=== PATIENT | female | born 1935 | race Caucasian/White ===

== ENCOUNTER 2020-10-12 21:44 | Inpatient (IN) | payer MEDICARE, SELFPAY ==
[2020-10-12 21:45] VITALS: BP 159/91; PULSE 110; RESP 16; TEMP 36.1; O2SAT 95; BMI 24.1
--- NOTE | 2020-10-12 23:37 | RAD_ITS ---
STUDY: X-RAY - ACUTE ABDOMINAL SERIES REASON FOR EXAM: Female, 85 years old. coughing, spitting up phlegm TECHNIQUE: Single view of the chest. Supine, and erect view(s) of the abdomen were obtained. COMPARISON: None. FINDINGS: There is hyperinflation of the lungs consistent with chronic obstructive lung disease (COPD). Lungs are clear Normal size heart. Normal mediastinum and vito. Normal visualized pulmonary arteries. Normal visualized aortic arch and descending thoracic aorta. There is a non-specific bowel gas pattern. The soft tissue structures of the abdomen and pelvis are unremarkable. Normal visualized osseous structures. RAD/Acute Abdomen Inc Chest IMPRESSION: Normal x-ray examination of the chest, abdomen, and pelvis. Electronically Signed: Abdoul Cancino DO at 0:19 EDT Tel , Service support ,
[2020-10-13] VITALS (12 sets, daily range): BP systolic 91–159; BP diastolic 49–91; PULSE 83–110; RESP 16–20; TEMP 36.1–37; O2SAT 92–99; BMI 23.8
--- NOTE | 2020-10-13 00:04 | EX.ED.DYSGE1 ---
HPI History of Present Illness Chief Complaint: Nausea/Vomiting Informant: patient Onset/Context/Timing Onset: Today and Hours (1800) Context: Onset with activity (dinner) Timing: Continuous Current Severity: Gone Worsened by: eating, allergies, phlegm Relieved by: nothing Associated Symptoms Associated Symptoms: none Narrative Narrative: Patient was eating soup and cake. She started coughing secondary to phlegm. She could not get anything down including solids or liquids. She feels like that has resolved, but she has not tried to take anything by mouth for a few hours now. She does complain of vomiting as well, but says that she is vomiting up phlegm. She has a chronic cough and allergies. Denies any history of GERD, strictures, achalasia, or prior EGD. Denies any history of bowel obstructions. Prior similar symptoms: No Recent Illness/Hospitalization: No PFSH PFSH Home Medications mmdldiju-qju-LX-lycopen-lutein [Centrum Silver Tablet] 1 ea PO DAILY 05/02/13 [History Last Taken Unknown] [id number]-amfjwhuib-EO 2 drp EACH EAR QHS 10/12/20 [History Last Taken Unknown] Allergy/AdvReac Type Severity Reaction Status Date / Time No Known Allergies Allergy Verified 05/02/13 17:25 Social History Smoking Status: Never smoker ROS ROS ED Constitutional Constitutional ED: Denies chills or fever(s) Eyes Eyes: Denies change in vision ENT ENT ED: Denies ear pain Cardiovascular Cardiovascular: Denies chest pain or palpitations Respiratory/Chest Respiratory/Chest: Reports cough; Denies dyspnea or sputum Gastrointestinal Gastrointestinal: Reports nausea and vomiting; Denies abdominal pain, constipation or diarrhea Genitourinary Genitourinary ED: Denies dysuria Musculoskeletal Musculoskeletal: Denies myalgias Integumentary Denies rash Neurologic Neurologic: Denies headache(s) Psychiatric Psychiatric: Denies depression Endocrine Endocrinology: Denies polyuria Allergic/Immunologic Allergic/Immunologic ED: Denies urticaria EXAM Physical Exam Const Vital Signs: 10/12/20 21:45 Temperature 97 F L Temperature Source Temporal Pulse Rate 110 H Respiratory Rate 16 Blood Pressure 159/91 H Blood Pressure Mean 113 Pulse Ox 95 Oxygen Delivery Method Room Air Positive well nourished and well developed General Appearance ED: well developed HEENT Negative for trauma or tenderness Eyes EOMs intact bilaterally Neck supple Chest Wall inspection of chest normal Resp normal respiratory effort and clear to auscultation bilaterally Cardio regular rate and regular rhythm GI normal to inspection, nondistended, normoactive bowel sounds Extremity normal to inspection Neuro oriented x3 Sensorium / Orientation: alert Psych mental status grossly normal Skin no rashes or lesions noted and no wounds MDM MDM MDM Narrative Medical decision making narrative: It initially sounded like the patient was coughing while she was trying to swallow. I checked x-rays which were unremarkable, reviewed by myself and the radiologist. We then attempted a p.o. challenge. The patient drank some benny nayana and then vomited it back up. This was witnessed by nursing. She is able to swallow her saliva, and so I do not believe she has an esophageal impaction. I added on nausea medicine, labs, and a CT. She had a white count of 14 but otherwise her labs were fairly unremarkable. CT was unremarkable. On further evaluation, the patient is able to swallow saliva, but still cannot tolerate anything by mouth. Since she cannot eat or drink, I will contact the hospitalist for admission. Lab Data Attestation: I reviewed the patient's lab results. Labs: Laboratory Results - last 24 hr 10/12/20 10/12/20 22:58 22:58 WBC 14.0 H RBC 5.33 Hgb 14.8 Hct 45.8 MCV 85.9 MCH 27.8 MCHC 32.3 RDW Std Deviation 46.1 H RDW Coeff of Celi 14.6 Plt Count 369 MPV 10.9 Immature Gran % (Auto) 0.500 Neut % (Auto) 74.6 H Lymph % (Auto) 19.6 [place] % (Auto) 4.6 Eos % (Auto) 0.3 Baso % (Auto) 0.4 Absolute Neuts (auto) 10.5 H Absolute Lymphs (auto) 2.74 Nucleated RBC % 0 Sodium 139 Potassium 4.1 Chloride 106 Carbon Dioxide 21.0 Anion Gap 12 BUN 16 Creatinine 0.82 Estim Creat Clear Calc 37.16 Est GFR (MDRD) Af Amer 85 Est GFR (MDRD) Non-Af 70 BUN/Creatinine Ratio 19.5 Glucose 170 H Calcium 9.1 Total Bilirubin 0.60 AST 22 ALT 24 Alkaline Phosphatase 94 Total Protein 7.9 Albumin 3.5 Globulin 4.4 H Albumin/Globulin Ratio 0.8 L Lipase 94 Radiography Chest X-Ray - ED: Read by ED Physician and Normal Diagnostic Testing: Radiology Impression Acute Abdomen Series 10/12/20 23:37 IMPRESSION: Normal x-ray examination of the chest, abdomen, and pelvis. Electronically Signed: Abdoul Cancino DO at 0:19 EDT Tel , Service support , Abdomen/Pelvis CT 10/13/20 00:50 IMPRESSION: 1. No acute findings 2. Abnormal appearance of the uterus with what appears to be an enhancing fibroid as well as cystic dilation of the endometrium and lower uterine segment. Further evaluation with pelvic ultrasound would be helpful to further evaluate. Electronically Signed: Abdoul Cancino DO at 1:32 EDT Tel , Service support , Discharge Plan Triage Chief Complaint: Nausea/Vomiting ED Provider: Brad Saab Dx/Rx/DC Orders Clinical Impression: Intractable vomiting with nausea Prescriptions: No Action Centrum Silver 1 EACH tablet 1 ea PO DAILY RF: 0 bxgjclfm-vuypgdnaz-PA 3.5-10,000-1 mg/mL-unit/mL-% solution 2 drp EACH EAR QHS RF: 0 Primary Care Provider: Care Physician,No Primary Referrals: Care Physician,No Primary [Primary Care Provider] -
[2020-10-13 00:17] LABS: Absolute Lymphocyte Count 2.74 X10^3/uL (0.83-4.51); Absolute Neutrophil Count 10.5 X10^3/uL (2.0-7.7); Basophil# 0.05 X10^3/uL; Basophil% 0.4 % (0-1); Eosinophil# 0.04 X10^3/uL; Eosinophils% 0.3 % (0-5); Hematocrit 45.8 % (37-47); Hemoglobin 14.8 g/dL (12.0-15.0); Lymphocyte # 2.74 X10^3/ul (0.83-4.51); Lymphocyte % 19.6 % (19-41); Mean Corp Hgb Conc 32.3 g/dL (32-36); Mean Corpuscular Hgb 27.8 pg (27.0-32.0); Mean Corpuscular Volume 85.9 fL (81-99); Mean Platelet Vol. 10.9 fl (6.2-12.0); Monocyte# 0.64 X10^3/uL; Monocyte% 4.6 % (0-10); NRBC Flagged by Analyzer 0 % (0-5); Neutrophil # 10.46 X10^3/uL (2.7-7.7); Neutrophil % 74.6 % (47-70); Platelet Count 369 K/mm3 (150-450); RBC Distribution Width CV 14.6 % (11.6-14.6); RBC Distribution Width SD 46.1 fl (35.1-43.9); Red Blood Count 5.33 M/mm3 (4.2-5.4)
[2020-10-13] MEDS: Ondansetron 4 MG/2 ML Vial IV ×2 (00:24→08:37)
[2020-10-13 00:26] LABS: ALB/GLOB Ratio 0.8 RATIO (0.9-2.4); AST(SGOT) 22 U/L (15-37); Alanine Aminotransfer ALT/SGPT 24 U/L (13-56); Albumin, Serum 3.5 g/dL (3.2-5.0); Alkaline Phosphatase 94 U/L (45-117); Anion Gap 12 (5-15); BUN 16 mg/dL (7-18); BUN/Creat Ratio 19.5 RATIO (10-20); Calcium,Total 9.1 mg/dL (8.5-10.1); Chloride 106 mmol/L (98-107); Creatinine, Serum 0.82 mg/dL (0.55-1.02); EST Glomerular Filtration Rate 70 mL/min (>60); Est Glom Filt Rate - Afr Amer 85 mL/min (>60); Estimated Creatinine Clearance 37.16 ml/min; Globulin 4.4 g/dL (2.2-4.2); Glucose 170 mg/dL (74-106); Lipase 94 U/L (73-393); Potassium 4.1 mmol/L (3.5-5.1); Protein, Total 7.9 g/dL (6.4-8.2); Sodium Level 139 mmol/L (136-145)
--- NOTE | 2020-10-13 00:50 | CT_ITS ---
STUDY: CT ABDOMEN AND PELVIS WITH CONTRAST REASON FOR EXAM: Female, 85 years old. vomiting, leukocytosis RADIATION DOSAGE (If Supplied By Facility): CTDIvol = ( 18.53 ) mGy, DLP = ( 494.15 ) mGycm TECHNIQUE: Transaxial images were obtained from the dome of the diaphragm to the symphysis pubis without oral contrast. IV 75mL Isovue-370 was administered. Sagittal and coronal images were reconstructed. Individualized dose optimization techniques were used for this CT. COMPARISON: None. FINDINGS: The visualized lung bases are unremarkable. The visualized portions of the heart are within normal limits. Normal liver. Normal gallbladder and extrahepatic biliary system. Normal spleen. Normal pancreas. Normal bilateral adrenal glands. Normal right kidney. Normal left kidney. There is a small hiatal hernia. Normal small intestine. There are multiple colonic diverticula consistent with diverticulosis. The appendix is visualized and appears normal. There is diffuse atherosclerotic calcification of the abdominal aorta, without a demonstrated aneurysm. Normal inferior vena cava. Normal retroperitoneum. Normal urinary bladder. Abnormal appearance of uterus with what appears to be heterogeneously enhancing fibroid near the uterine fundus however, prominent cystic formations in the uterine body and lower uterine segment. Normal abdominal wall. Normal osseous structures. CT/Abdomen/Pelvis W IV Cont ONLY IMPRESSION: 1. No acute findings 2. Abnormal appearance of the uterus with what appears to be an enhancing fibroid as well as cystic dilation of the endometrium and lower uterine segment. Further evaluation with pelvic ultrasound would be helpful to further evaluate. Electronically Signed: Abdoul Cancino DO at 1:32 EDT Tel , Service support ,
--- NOTE | 2020-10-13 02:23 | HP.PCM.HOS_ITS ---
HPI - General General Date of Admission: 10/13/20 Date of Service: 10/13/20 Chief Complaint: vomiting HPI Narrative JORDY DALTON, is a 85 F who presents with vomiting. Patient was eating some soup and only had a couple bites and then vomited. Was unable to keep anything down and so presented to the emergency room. She underwent work-up in the emergency room that was significant only for white count of 14 and a glucose of 170. The tried fluid challenge twice and patient immediately vomited up the liquid. Patient has had issues with swallowing before with spitting up but this was much more pronounced. Patient does note issues intermittently with mucus. She denies any history of GERD. [facility] Medical History (Updated 10/13/20 @ 02:[address] Walter Yarbrough DO) Presbycusis Home Medications rhonkkqh-tbb-BS-lycopen-lutein [Centrum Silver Tablet] 1 ea PO DAILY 05/02/13 [History Last Taken Unknown] ycluzpzg-knregcpds-QW 2 drp EACH EAR QHS 10/12/20 [History Last Taken Unknown] Allergy/AdvReac Type Severity Reaction Status Date / Time No Known Allergies Allergy Verified 05/02/13 17:25 Family History (Updated 10/13/20 @ 02:[address] Walter Yarbrough DO) Other GERD (gastroesophageal reflux disease) Social History Smoking Status: Never smoker ROS ROS Narrative Denies any exposure to anyone with COVID-19. Chronic dry eyes and dry mouth. All review of systems were negative except as mentioned above in the history of present illness and the other review of systems. 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 ; Denies dysphagia Cardiovascular Cardiovascular: Reports other Details: Baseline chronic chest pain. Respiratory/Chest Respiratory/Chest: Reports cough and excessive phlegm production Gastrointestinal Gastrointestinal: Reports abdominal pain, vomiting and other Details: Abdominal pain from retching Vital Signs Vital Signs Vital Signs: 10/12/20 21:45 Temperature 36.1 C L Temperature Source Temporal Pulse Rate 110 H Respiratory Rate 16 Blood Pressure 159/91 H Blood Pressure Mean 113 Pulse Ox 95 Oxygen Delivery Method Room Air Weight Weight: 58.06 kg Body Mass Index (BMI) 24.1 Physical Exam Narrative Awake and alert. Afebrile. Const alert and no apparent distress General Appearance: cooperative HEENT normocephalic and head/scalp atraumatic HEENT Narrative: Patient has filled cavities in her posterior molars. Slightly dry mucous membrane Eyes Eyes Narrative: No scleral icterus Neck no lymphadenopathy Resp normal respiratory effort, no use of accessory muscles and clear to auscultation bilaterally Cardio regular rate, regular rhythm, S1 normal heart sound and S2 normal heart sound GI normal to inspection, nondistended, normoactive bowel sounds and non-distended Extremity normal to inspection, full ROM and no clubbing, cyanosis or edema Skin Skin Narrative: Patient has some small patch of dry skin underneath her left eye. Neuro Sensorium / Orientation: awake and alert Psych affect normal Results Lab / Micro Data Attestation: I reviewed the patient's lab results. Result Diagrams: 10/12/20 22:58 10/12/20 22:58 Labs: Laboratory Results - last 24 hr 10/12/20 10/12/20 22:58 22:58 WBC 14.0 H RBC 5.33 Hgb 14.8 Hct 45.8 MCV 85.9 MCH 27.8 MCHC 32.3 RDW Std Deviation 46.1 H RDW Coeff of Celi 14.6 Plt Count 369 MPV 10.9 Immature Gran % (Auto) 0.500 Neut % (Auto) 74.6 H Lymph % (Auto) 19.6 [place] % (Auto) 4.6 Eos % (Auto) 0.3 Baso % (Auto) 0.4 Absolute Neuts (auto) 10.5 H Absolute Lymphs (auto) 2.74 Nucleated RBC % 0 Sodium 139 Potassium 4.1 Chloride 106 Carbon Dioxide 21.0 Anion Gap 12 BUN 16 Creatinine 0.82 Estim Creat Clear Calc 37.16 Est GFR (MDRD) Af Amer 85 Est GFR (MDRD) Non-Af 70 BUN/Creatinine Ratio 19.5 Glucose 170 H Calcium 9.1 Total Bilirubin 0.60 AST 22 ALT 24 Alkaline Phosphatase 94 Total Protein 7.9 Albumin 3.5 Globulin 4.4 H Albumin/Globulin Ratio 0.8 L Lipase 94 Radiology Impression Acute Abdomen Series 10/12/20 23:37 IMPRESSION: Normal x-ray examination of the chest, abdomen, and pelvis. Electronically Signed: Abdoul Cancino DO at 0:19 EDT Tel , Service support , Abdomen/Pelvis CT 10/13/20 00:50 IMPRESSION: 1. No acute findings 2. Abnormal appearance of the uterus with what appears to be an enhancing fibroid as well as cystic dilation of the endometrium and lower uterine segment. Further evaluation with pelvic ultrasound would be helpful to further evaluate. Electronically Signed: Abdoul Cancino DO at 1:32 EDT Tel , Service support , Assessment & Plan Assessment/Plan (1) Intractable vomiting with nausea: PLAN: 1. Intractable vomiting * It sounds as though patient has had some issues in regards to swallowing in the past and would question whether or not this is actual vomiting or if there is thing involving her pharynx or esophagus that may be contributing to this current episode. * Plan: N.p.o. for now, speech therapy evaluate and treat, barium esophagram. Depending on results, may need general surgery evaluation for possible endoscopy with an EGD. Patient does complain of some chest pain but denies any overt reflux. I will give her a one-time dose of IV pantoprazole. IV fluids. * Patient does not have classic findings for scleroderma but I am concerned that patient may have a component of Sjogren's. Patient is already on eyedrops and does complain of dry mouth and does have numerous cavities in her teeth. Granted some of the cavities may be due to just her age and not ideal dental care over time. Patient has lost teeth due to falling several years ago that was her front teeth, however. 2. VTE prophylaxis: Not indicated given observation status 3. Advanced care planning: Discussed with the patient. Patient is unsure which she would want done in the event of cardiopulmonary arrest. Told her that the likelihood of that occurring during this hospitalization is extremely low but would have her at full CODE STATUS. But I did encourage that she and her discuss further at a later point. 4. Health maintenance: Discussed with the patient. Patient has been vaccinated against COVID-19 and received her last shot back in July. Charges/Coding Visit Charges OBSV E&M: 39323 Initial observation care L2
[2020-10-13] MEDS: 0.9% Normal Saline 1,000 ML 150 ML IV (03:01)
[2020-10-13 06:14] LABS: Absolute Lymphocyte Count 2.41 X10^3/uL (0.83-4.51); Absolute Neutrophil Count 14.8 X10^3/uL (2.0-7.7); Basophil# 0.04 X10^3/uL; Basophil% 0.2 % (0-1); Hemoglobin 13.6 g/dL (12.0-15.0); Lymphocyte # 2.41 X10^3/ul (0.83-4.51); Lymphocyte % 13.4 % (19-41); Mean Corp Hgb Conc 32.4 g/dL (32-36); Mean Corpuscular Volume 86.4 fL (81-99); Mean Platelet Vol. 9.8 fl (6.2-12.0); Monocyte# 0.73 X10^3/uL; Monocyte% 4.1 % (0-10); NRBC Flagged by Analyzer 0 % (0-5); Neutrophil # 14.76 X10^3/uL (2.7-7.7); Neutrophil % 81.9 % (47-70); Platelet Count 319 K/mm3 (150-450); RBC Distribution Width CV 14.6 % (11.6-14.6); RBC Distribution Width SD 46.1 fl (35.1-43.9); Red Blood Count 4.86 M/mm3 (4.2-5.4)
[2020-10-13] MEDS: 0.9% Saline Lock 10 ML Syringe IV ×3 (08:38→20:44)
--- NOTE | 2020-10-13 09:00 | RAD_ITS ---
Patient swallowed barium no abnormality detected in the upper esophagus. There is complete obstruction of the distal esophagus above the EG junction with lot of filling defects in the distal esophagus that represents the retained food. Endoscopy is indicated in this patient for better assessment and biopsy. 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 Electronically Signed: Abena Dixon, at 9:38 EDT Tel , Service support ,
--- NOTE | 2020-10-13 10:42 | PN.HOSP_ITS ---
Subjective Subjective Patient was seen and examined. She complains of severe nausea and discomfort between the chest and epigastrium. Objective Data Objective Data Vital Signs: Vital Signs Temp Pulse Resp BP Pulse Ox 98.0 F 100 20 H 137/82 H 96 10/13/20 07:32 10/13/20 07:32 10/13/20 07:32 10/13/20 07:32 10/13/20 07:32 Oxygen Delivery Method Room Air Weight: 57.3 kg Body Mass Index (BMI) 23.8 Intake & Output: Intake and Output for Last 24 Hours 10/11/20 10/12/20 10/13/20 23:59 23:59 23:59 Intake Total 980.0 / 980.0 Balance 980.0 / 980.0 Lab / Micro Data Result Diagrams: 10/13/20 06:02 10/12/20 22:58 Labs: Laboratory Results - last 24 hr 10/12/20 10/12/20 10/13/20 22:58 22:58 06:02 WBC 14.0 H 18.0 H RBC 5.33 4.86 Hgb 14.8 13.6 Hct 45.8 42.0 MCV 85.9 86.4 MCH 27.8 28.0 MCHC 32.3 32.4 RDW Std Deviation 46.1 H 46.1 H RDW Coeff of Celi 14.6 14.6 Plt Count 369 319 MPV 10.9 9.8 Immature Gran % (Auto) 0.500 0.400 Neut % (Auto) 74.6 H 81.9 H Lymph % (Auto) 19.6 13.4 L [place] % (Auto) 4.6 4.1 Eos % (Auto) 0.3 0.0 Baso % (Auto) 0.4 0.2 Absolute Neuts (auto) 10.5 H 14.8 H Absolute Lymphs (auto) 2.74 2.41 Nucleated RBC % 0 0 Sodium 139 Potassium 4.1 Chloride 106 Carbon Dioxide 21.0 Anion Gap 12 BUN 16 Creatinine 0.82 Estim Creat Clear Calc 37.16 Est GFR (MDRD) Af Amer 85 Est GFR (MDRD) Non-Af 70 BUN/Creatinine Ratio 19.5 Glucose 170 H Calcium 9.1 Total Bilirubin 0.60 AST 22 ALT 24 Alkaline Phosphatase 94 Total Protein 7.9 Albumin 3.5 Globulin 4.4 H Albumin/Globulin Ratio 0.8 L Lipase 94 Radiography Diagnostic Testing: Radiology Impression Acute Abdomen Series 10/12/20 23:37 IMPRESSION: Normal x-ray examination of the chest, abdomen, and pelvis. Electronically Signed: Abdoul Cancino DO at 0:19 EDT Tel , Service support , Abdomen/Pelvis CT 10/13/20 00:50 IMPRESSION: 1. No acute findings 2. Abnormal appearance of the uterus with what appears to be an enhancing fibroid as well as cystic dilation of the endometrium and lower uterine segment. Further evaluation with pelvic ultrasound would be helpful to further evaluate. Electronically Signed: Abdoul Cancino DO at 1:32 EDT Tel , Service support , Barium Swallow X-Ray 10/13/20 09:00 IMPRESSION: Complete obstruction of the EG junction with retained food in the distal esophagus. Electronically Signed: Abena Dixon, at 9:38 EDT Tel , Service support , Physical Exam Narrative Physical exam: General: Alert, Oriented x3, Cooperative, No apparent distress, Well developed HEENT: Atraumatic Oral: Moist Mucosa Neck: Supple Lungs: Clear to auscultation Cardiovascular: HS I+II, regular, no murmurs Abdomen: Bowel Sounds Present, Soft, Non Tender Extremities: No edema Skin: No rashes, No breakdown Neurological: Grossly intact Psych/Mental Status: Appropriate Assessment & Plan Assessment/Plan (1) Intractable vomiting with nausea: PLAN: Continue to keep n.p.o. will continue on gentle IV fluids, IV PPI twice daily Follow-up on speech therapy evaluation and barium studies Charges/Coding Visit Charges Inpatient E&M: 41549 Subs Hosp L2
[2020-10-13] MEDS: 0.9% Normal Saline 1,000 ML 100 ML IV ×2 (11:22→16:58)
--- NOTE | 2020-10-13 12:47 | EKG12_ITS ---
Test Reason : PRE OP Blood Pressure : / mmHG Vent. Rate : 091 BPM Atrial Rate : 091 BPM P-R Int : 136 ms QRS Dur : 120 ms QT Int : 444 ms P-R-T Axes : 029 -40 168 degrees QTc Int : 546 ms Normal sinus rhythm Left axis deviation Anterior infarct , age undetermined T wave abnormality, consider inferolateral ischemia Abnormal ECG Confirmed by JASMINA KENNEDY, NAFISA ([id number]), editorial intern KAY QUINTANA ([id number]) on 10/15/2020 12:37:57 PM Referred By: SUSAN Confirmed By:NAFISA FREEDMAN MD
--- NOTE | 2020-10-13 13:22 | CON.PCM_ITS ---
Assessment & Plan Assessment/Plan (1) Intractable vomiting with nausea: (2) Foreign body: PLAN: Discussed patient with Dr. Summers. Dr. Summers will plan to perform an upper scope with removal of foreign body. Procedure details, risks and benefits have been explained to the patient. PAtient has had the opportunity to ask and have questions answered. Patient verbally understands and agrees with the plan. Patient has had both COVID vaccines couple months ago. She is not on any blood thinners. Thank you for allowing us to participate in this patient's care. HPI Consult Data Date of Consult: 10/13/20 HPI Narrative HPI Narrative: JORDY DALTON, is a 85 F who presents to the ED yesterday with vomiting. She noted last night she had homemade potato soup with some chicken. She noted following this meal she felt as though a cubed potato was stuck. She noted she immediately went to the bathroom and started vomiting. She noted it was both liquid and solid yellowish bolus. She stated she was given a can of soda last night following admission which did not help with her symptoms. She had a barium swallow this morning which demonstrated a complete obstruction of the EG junction. She notes brief periods of food getting stuck. The feeling would always resolve on its own. She has never had an upper scope previously. She also has never had a colonoscopy previously. She notes a history of constipation. She currently notes a pressure sensation of the chest and a feeling of difficulty swallowing. She also notes generalized abdominal pain which she states is from vomiting. She has continued to feel nauseated and vomiting this morning. She denies previous cardiac and pulmonary history. She denies previous side effects of anesthesia. FOR[facility]LY [facility] Medical History (Updated 10/13/20 @ 13:30 by Italia JENKINS, PAAnaC) Anxiety Deafness in left ear Foreign body Presbycusis Home Medications [id number]-[id number]-TH-lycopen-lutein [Centrum Silver Tablet] 1 ea PO DAILY 05/02/13 [History Last Taken 10/12/20] [id number]-[id number]-TG 2 drp EACH EAR QHS 10/12/20 [History Last Taken 10/11/20] Allergy/AdvReac Type Severity Reaction Status Date / Time perfume Allergy Shortness Verified 10/13/20 02:48 of breath seasonal Allergy Shortness Uncoded 10/13/20 02:48 of breath Family History (Updated 10/13/20 @ 02:[address] Walter Yarbrough DO) Other GERD (gastroesophageal reflux disease) Social History Smoking Status: Never smoker ROS Constitutional Constitutional: Reports systems reviewed and no addt'l complaints, except as documented Eyes Eyes: Reports systems reviewed and no addt'l complaints, except as documented ENT HEENT: Reports systems reviewed and no addt'l complaints, except as documented Cardiovascular Cardiovascular: Reports systems reviewed and no addt'l complaints, except as documented Respiratory/Chest Respiratory/Chest: Reports systems reviewed and no addt'l complaints, except as documented Gastrointestinal Gastrointestinal: Reports systems reviewed and no addt'l complaints, except as documented Musculoskeletal Musculoskeletal: Reports systems reviewed and no addt'l complaints, except as documented Neurologic Neurologic: Reports systems reviewed and no addt'l complaints, except as documented Psychiatric Psychiatric: Reports systems reviewed and no addt'l complaints, except as documented Endocrine Endocrinology: Reports systems reviewed and no addt'l complaints, except as documented Hematologic/Lymphatic Hematologic/Lymphatic: Reports systems reviewed and no addt'l complaints, except as documented Allergic/Immunologic Allergic/Immunologic: Reports systems reviewed and no addt'l complaints, except as documented Physical Exam Const alert and oriented x3 HEENT normocephalic and head/scalp atraumatic Eyes PERRL and EOMs intact bilaterally Neck full ROM Lymph Lymphatic: no lymphadenopathy noted Resp normal respiratory effort and clear to auscultation bilaterally Cardio regular rate and regular rhythm GI Auscultation: hypoactive bowel sounds Palpation: tender other (generalized) no CVA tenderness Back/Spine no CVA tenderness and normal ROM Extremity normal to inspection Skin no rashes or lesions noted Neuro oriented x3 and CN's II-XII intact bilaterally Psych mental status grossly normal Lab / Micro Data Result Diagrams: 10/13/20 06:02 10/12/20 22:58 Labs: Laboratory Results - last 24 hr 10/12/20 10/12/20 10/13/20 22:58 22:58 06:02 WBC 14.0 H 18.0 H RBC 5.33 4.86 Hgb 14.8 13.6 Hct 45.8 42.0 MCV 85.9 86.4 MCH 27.8 28.0 MCHC 32.3 32.4 RDW Std Deviation 46.1 H 46.1 H RDW Coeff of Celi 14.6 14.6 Plt Count 369 319 MPV 10.9 9.8 Immature Gran % (Auto) 0.500 0.400 Neut % (Auto) 74.6 H 81.9 H Lymph % (Auto) 19.6 13.4 L [place] % (Auto) 4.6 4.1 Eos % (Auto) 0.3 0.0 Baso % (Auto) 0.4 0.2 Absolute Neuts (auto) 10.5 H 14.8 H Absolute Lymphs (auto) 2.74 2.41 Nucleated RBC % 0 0 Sodium 139 Potassium 4.1 Chloride 106 Carbon Dioxide 21.0 Anion Gap 12 BUN 16 Creatinine 0.82 Estim Creat Clear Calc 37.16 Est GFR (MDRD) Af Amer 85 Est GFR (MDRD) Non-Af 70 BUN/Creatinine Ratio 19.5 Glucose 170 H Calcium 9.1 Total Bilirubin 0.60 AST 22 ALT 24 Alkaline Phosphatase 94 Total Protein 7.9 Albumin 3.5 Globulin 4.4 H Albumin/Globulin Ratio 0.8 L Lipase 94 Radiology Impression Acute Abdomen Series 10/12/20 23:37 IMPRESSION: Normal x-ray examination of the chest, abdomen, and pelvis. Electronically Signed: Abdoul Cancino DO at 0:19 EDT Tel , Service support , Abdomen/Pelvis CT 10/13/20 00:50 IMPRESSION: 1. No acute findings 2. Abnormal appearance of the uterus with what appears to be an enhancing fibroid as well as cystic dilation of the endometrium and lower uterine segment. Further evaluation with pelvic ultrasound would be helpful to further evaluate. Electronically Signed: Abdoul Cancino DO at 1:32 EDT Tel , Service support , Barium Swallow X-Ray 10/13/20 09:00 IMPRESSION: Complete obstruction of the EG junction with retained food in the distal esophagus. Electronically Signed: Abena Dixon, at 9:38 EDT Tel , Service support , Charges/Coding Visit Charges Office Visits / Consults: [id number] IP Consult L3
--- NOTE | 2020-10-13 14:02 | PCM.PN.BLA ---
Progress Note I performed an EGD and the patient I was able to push the food bolus into the stomach. There is too much food in the esophagus to be able to rinse it all out and successfully inspect the GE junction. I recommended the patient be started on a PPI and a full liquid diet and advance to a soft diet. I would like to repeat an EGD electively to better inspect the GE junction in the near future. Sadi Summers MD Pager: [facility] [address] [place] [address] Office:
--- NOTE | 2020-10-13 14:08 | OP.EGD_ITS ---
Patient Name: Renaldo Zaidi Procedure Date: 10/13/2020 1:49 PM Date of : 1935 Age: 85 Procedure: Upper GI endoscopy Indications: Foreign body in the esophagus Providers: Sadi Summers MD Medicines: Monitored Anesthesia Care Patient Profile: This is an 85 year old female. Refer to note in patient chart for documentation of history and physical. Complications: No immediate complications. Estimated blood loss: None. Procedure: Pre-Anesthesia Assessment: - Prior to the procedure, a History and Physical was performed, and patient medications and allergies were reviewed. The patient's tolerance of previous anesthesia was also reviewed. The risks and benefits of the procedure and the sedation options and risks were discussed with the patient. All questions were answered, and informed consent was obtained. Prior Anticoagulants: The patient has taken no previous anticoagulant or antiplatelet agents. After reviewing the risks and benefits, the patient was deemed in satisfactory condition to undergo the procedure. After obtaining informed consent, the endoscope was passed under direct vision. Throughout the procedure, the patient's blood pressure, pulse, and oxygen saturations were monitored continuously. The gastroscope was introduced through the mouth, and advanced to the second part of duodenum. The upper GI endoscopy was accomplished without difficulty. The patient tolerated the procedure well. Scope In: 1:56:32 PM Scope Out: 2:00:11 PM Total Procedure Duration Time 0 hours 3 minutes 39 seconds Findings: Food was found at the gastroesophageal junction. Food was advanced into stomach. There was too much food to adequately inspect the GE junction. She will need elective EGD in near future for better inspection. Impression: - Food was found in the esophagus. Removal was successful. Recommendation: - Return patient to [facility] for ongoing care. - Clear liquid diet. - Continue present medications. - Return to my office in 1 week. Procedure Code(s): --- Professional --- 32477, Esophagogastroduodenoscopy, flexible, transoral; with removal of foreign body(s) Diagnosis Code(s): --- Professional --- T18.128A, Food in esophagus causing other injury, initial encounter T18.108A, Unspecified foreign body in esophagus causing other injury, initial encounter CPT copyright 2017 [employer]. All rights reserved. The codes documented in this report are preliminary and upon inpatient coder review may be revised to meet current compliance requirements. Sadi Summers MD 10/13/2020 2:07:38 PM This report has been signed electronically. Number of Addenda: 0 Note Initiated On: 10/13/2020 1:49 PM
--- NOTE | 2020-10-13 14:08 | OP.CCLET_ITS ---
10/13/2020 No Primary Care Physician Re : Upper GI endoscopy procedure for Renaldo Zaidi Dear Care Physician This procedure was performed on Tuesday, October 13, 2020. My impressions and recommendations are as follows: Impressions : - Food was found in the esophagus. Removal was successful. Recommendations : - Return patient to [facility] for ongoing care. - Clear liquid diet. - Continue present medications. - Return to my office in 1 week. My findings are described in the full procedure note, which is enclosed. If I can be of further assistance, please feel free to contact me at Doctor phone number(s): , Work: . Sincerely, Sadi Summers MD 10/13/2020 2:07:38 PM This report has been signed electronically.
--- NOTE | 2020-10-13 14:12 | ECHOCS_ITS ---
Reason For Study: Arrhythmia Procedure This was a 2D Doppler, Color Flow transthoracic echocardiogram. The study was technically difficult. Contrast injection was performed. Exam performed portable in patient room. Left Ventricle Normal LV size. Moderate segmental systolic dysfunction (see wall motion). The estimated ejection fraction is 30 %. Diastolic function is indeterminate. Mid-Anterior : Hypokinetic. Mid-Lateral : Hypokinetic. Mid-Posterior: Hypokinetic. Mid-Inferior: Akinetic. Mid-inferoseptal : Akinetic. Mid- anteroseptal : Akinetic. Wirt : Akinetic. Right Ventricle Normal RV size. Normal systolic function. Atria Normal left atrium. Normal right atrium. No doppler evidence for ASD. Mitral Valve There is mild mitral annular calcification. Mild diffuse mitral valve thickening. Trivial mitral valve insufficiency. Tricuspid Valve Normal tricuspid valve. Mild to moderate (1-2+) tricuspid valve insufficiency. Right ventricular systolic pressure estimated to be 39 mmHg. Aortic Valve Trisinus/trileaflet aortic valve. Mild focal aortic valve calcification. Pulmonic Valve The pulmonic valve is not well visualized. Great Vessels The aortic root is not well visualized. Pericardium/Pleural No pericardial effusion. Medication Diluted definity 4ml given slow IV push to enhance endocardial definition. MMode/2D Measurements & Calculations LVIDd: 3.9 cm IVSd: 1.1 cm LA dimension: 2.8 cm LVIDs: 2.6 cm LVPWd: 1.1 cm RVDd: 3.2 cm FS: 33.1 % LAV(MOD-bp): 33.4 ml LA A4 area: 12.8 cm2 RA A4 area: 13.7 cm2 LAV(MOD-bp) Indexed: 21.5 ml/m2 LAV(MOD-sp2): 36.3 ml LAV(MOD-sp4): 27.4 ml Time Measurements MV dec time: 0.22 sec Doppler Measurements & Calculations MV E max odilon: 71.3 cm/sec Lat Peak E' Odilon: 5.3 cm/sec Med Peak E' Odilon: 5.2 cm/sec MV A max odilon: 109.1 cm/sec E/E' lat: 13.5 E/E' med: 13.6 MV E/A: 0.65 MV V2 max: 122.0 cm/sec MV P1/2t max odilon: 75.1 cm/sec Ao V2 max: 110.0 cm/sec MV max P.0 mmHg MV P1/2t: 63.6 msec Ao max P.8 mmHg MV V2 mean: 64.0 cm/sec MV dec slope: 345.9 cm/sec2 MV mean P.0 mmHg MV V2 VTI: 19.6 cm MVA(P1/2t): 3.5 cm2 LV V1 max: 83.0 cm/sec PA V2 max: 75.7 cm/sec TR max odilon: 300.4 cm/sec LV V1 max P.8 mmHg TR max P.1 mmHg ECHO/Echo Complete W/ Contrast Interpretation Summary The study was technically difficult. Contrast injection was performed. Moderate segmental systolic dysfunction (see wall motion). The estimated ejection fraction is 30 %. There is mild mitral annular calcification. Mild diffuse mitral valve thickening. Trivial mitral valve insufficiency. Mild to moderate (1-2+) tricuspid valve insufficiency. Mild focal aortic valve calcification. Right ventricular systolic pressure estimated to be 39 mmHg. Diastolic function is indeterminate. 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 Ordering Physician: Lakeisha Villafuerte Performed By: Thomas White RCS
--- NOTE | 2020-10-13 15:35 | EKG12_ITS ---
Test Reason : PRE OP Blood Pressure : / mmHG Vent. Rate : 089 BPM Atrial Rate : 089 BPM P-R Int : 130 ms QRS Dur : 122 ms QT Int : 458 ms P-R-T Axes : 048 -45 168 degrees QTc Int : 557 ms Sinus rhythm with occasional Premature ventricular complexes Left axis deviation Left bundle branch block Abnormal ECG When compared with ECG of 13-OCT-2020 13:08, MANUAL COMPARISON REQUIRED, DATA IS UNCONFIRMED Confirmed by JASMINA KENNEDY, NAFISA ([id number]), editor house organ KAY QUINTANA ([id number]) on 10/15/2020 12:37:43 PM Referred By: SUSAN Confirmed By:NAFISA FREEDMAN MD
--- NOTE | 2020-10-13 18:57 | PCM.CONS.C ---
Assessment & Plan Assessment/Plan (1) Non-ST elevation (NSTEMI) myocardial infarction: PLAN: The patient presents with signs and symptoms and objective findings compatible with a non-ST segment elevation [place]. Based upon the patient's objective findings there be concerns of underlying CAD versus the possibility of a non-CAD related event such as a Takotsubo event (based upon her echocardiographic left ventricular wall motion/systolic function appearance). At the present time the patient will continue to be monitored. Her cardiac enzymes will be followed. She will initiate medical therapy which can include a combination of agents such as aspirin, antiplatelets, anticoagulants, nitrates as needed, beta-blockers, afterload reducing agents, lipid-lowering agents, etc. Ideally she would be considered for further evaluation with diagnostic cardiac catheterization. The procedure and risks were discussed with her. She was agreeable to this approach. (2) Cardiomyopathy: QUALIFIERS: Cardiomyopathy type: unspecified Qualified Code(s): I42.9 - Cardiomyopathy, unspecified PLAN: The patient does have findings compatible with an underlying cardiomyopathy. At the moment there is concern this may be ischemic mediated however a non-CAD/nonischemic mediated event cannot necessarily be excluded. The patient will need to initiate medical therapy as noted above. Ideally the patient would undergo further evaluation with diagnostic cardiac catheterization. (3) Left ventricular thrombus: PLAN: The patient's left ventricular wall motion and systolic function was assessed with a transthoracic echocardiogram. During this evaluation she was found to have findings compatible with a left ventricular apical thrombus. This could be secondary to her left ventricular wall motion abnormalities and diminished LV systolic function. At the moment she will need to continue to be monitored. She will initiate medical therapy which will include anticoagulant therapy. She should be considered for further evaluation of her coronary anatomy as noted above with diagnostic cardiac catheterization to assist in her diagnosis and care. (4) Abnormal electrocardiogram: PLAN: She does have an abnormal electrocardiogram with findings of an underlying left bundle branch block pattern. This could be related to a CAD versus a non-CAD cardiomyopathy. She will continue evaluation and care as noted above. Addt'l Comments The patient's case has been discussed and reviewed with the patient as well as Dr. Villafuerte. This note was generated using a voice recognition system and there may be incorrect words, spelling or punctuation that were not noted when reviewing the office note prior to saving. HPI Consult Data Date of Consult: 10/13/20 HPI Narrative HPI Narrative: JORDY DALTON, is a 85 year old white female who presents for evaluation from of chest discomfort, abnormal troponin I levels, and an abnormal transthoracic echocardiogram. She states that she has not been evaluated by a physician, undergone any medical diagnostic studies/therapies, or been on any cardiovascular medications at home. She states for some time now she has been noticing that she has episodes of chest heaviness/pressure as well as vague discomforts in both her shoulder areas. She has been more short of breath and dyspneic. She denies any acute orthopnea or PND or worsening peripheral pitting edema. She denies any near-syncope or syncope. She states she was having nausea and emesis. Thus she presented to the hospital for such. She has been undergoing noncardiac evaluation which included an EGD with the findings of food in her esophagus which was subsequently removed. However based upon her clinical course she underwent cardiac evaluation which included troponin I ubpzfe-jjzk-nfvzquerrgl-which were elevated at 3761.5, an ECG that demonstrated sinus rhythm with a left axis deviation with a left bundle branch block pattern and an anterior [place] pattern of indeterminate age cannot be excluded, and a transthoracic echocardiogram which was considered abnormal with findings noted below including left ventricular regional wall motion abnormalities, diminished LV systolic function/LVEF, and findings compatible with a left ventricular apical thrombus. She has been referred for further cardiovascular evaluation including consideration for diagnostic cardiac catheterization. [facility] Medical History (Updated 10/13/20 @ 19:[address] Mau Snyder MD) Abnormal electrocardiogram Anxiety Cardiomyopathy Deafness in left ear Foreign body Left ventricular thrombus Non-ST elevation (NSTEMI) myocardial infarction Presbycusis Home Medications [id number]-[id number]-lycopen-lutein [Centrum Silver Tablet] 1 ea PO DAILY 05/02/13 [History Last Taken 10/12/20] [id number] 2 drp EACH EAR QHS 10/12/20 [History Last Taken 10/11/20] Allergy/AdvReac Type Severity Reaction Status Date / Time perfume Allergy Shortness Verified 10/13/20 02:48 of breath seasonal Allergy Shortness Uncoded 10/13/20 02:48 of breath Family History (Updated 10/13/20 @ 02:[address] Walter Yarbrough DO) Other GERD (gastroesophageal reflux disease) Social History Smoking Status: Never smoker ROS Constitutional Constitutional: Reports fatigue and weakness Eyes Eyes: Reports as per HPI ENT HEENT: Reports as per HPI Cardiovascular Cardiovascular: Reports chest pain, chest pain at rest, dyspnea, dyspnea on exertion and weakness in extremities Respiratory/Chest Respiratory/Chest: Reports dyspnea and dyspnea on exertion Gastrointestinal Gastrointestinal: Reports nausea Genitourinary Genitourinary: Reports as per HPI Musculoskeletal Musculoskeletal: Reports as per HPI Neurologic Neurologic: Reports as per HPI Physical Exam Const alert and oriented x3 Orientation / Consciousness: awake HEENT normocephalic, head/scalp atraumatic and hearing grossly normal bilaterally Eyes PERRL, EOMs intact bilaterally, conjunctivae normal and no scleral icterus Neck full ROM and supple Chest inspection of chest normal Resp normal respiratory effort and clear to auscultation bilaterally Cardio regular rate, regular rhythm, S1 normal heart sound and S2 normal heart sound GI normal to inspection, nondistended, normoactive bowel sounds Extremity no pedal edema Skin no rashes or lesions noted Neuro oriented x3, CN's II-XII intact bilaterally and moves all extremities Psych mental status grossly normal Procedure Criteria Type of Procedure Procedure Type: Elective Elective Risks - COVID COVID Risk Discussion: The surgeon/proceduralist and patient have discussed in detail the risk of exposure to and/or potential harm posed by the COVID-19 virus with having a surgery/procedure at this time versus the risk of delaying the surgery/procedure. It is not possible to know either the risk of delaying the surgery or procedure or chance of getting an infection with perfect accuracy, but a joint decision was made between the patient and the surgeon/proceduralist to proceed at this time with the scheduled surgery/procedure as indicated on the consent form. Objective Data Vital Signs: Vital Signs Temp Pulse Resp BP Pulse Ox 97.8 F 92 18 111/49 L 95 10/13/20 14:59 10/13/20 14:59 10/13/20 14:59 10/13/20 14:59 10/13/20 14:59 Oxygen Delivery Method Room Air Weight: 126 lb 5.198 oz Body Mass Index (BMI) 23.8 Intake & Output: Intake and Output for Last 24 Hours 10/11/20 10/12/20 10/13/20 23:59 23:59 23:59 Intake Total 1540.0 / 1540.0 Balance 1540.0 / 1540.0 Lab / Micro Data Result Diagrams: 10/13/20 06:02 10/12/20 22:58 Labs: Laboratory Results - last 24 hr 10/12/20 10/12/20 10/13/20 22:58 22:58 06:02 WBC 14.0 H 18.0 H RBC 5.33 4.86 Hgb 14.8 13.6 Hct 45.8 42.0 MCV 85.9 86.4 MCH 27.8 28.0 MCHC 32.3 32.4 RDW Std Deviation 46.1 H 46.1 H RDW Coeff of Celi 14.6 14.6 Plt Count 369 319 MPV 10.9 9.8 Immature Gran % (Auto) 0.500 0.400 Neut % (Auto) 74.6 H 81.9 H Lymph % (Auto) 19.6 13.4 L [place] % (Auto) 4.6 4.1 Eos % (Auto) 0.3 0.0 Baso % (Auto) 0.4 0.2 Absolute Neuts (auto) 10.5 H 14.8 H Absolute Lymphs (auto) 2.74 2.41 Nucleated RBC % 0 0 Sodium 139 Potassium 4.1 Chloride 106 Carbon Dioxide 21.0 Anion Gap 12 BUN 16 Creatinine 0.82 Estim Creat Clear Calc 37.16 Est GFR (MDRD) Af Amer 85 Est GFR (MDRD) Non-Af 70 BUN/Creatinine Ratio 19.5 Glucose 170 H Calcium 9.1 Total Bilirubin 0.60 AST 22 ALT 24 Alkaline Phosphatase 94 Troponin I High Sens Total Protein 7.9 Albumin 3.5 Globulin 4.4 H Albumin/Globulin Ratio 0.8 L Lipase 94 10/13/20 10/13/20 15:15 17:00 WBC RBC Hgb Hct MCV MCH MCHC RDW Std Deviation RDW Coeff of Celi Plt Count MPV Immature Gran % (Auto) Neut % (Auto) Lymph % (Auto) [place] % (Auto) Eos % (Auto) Baso % (Auto) Absolute Neuts (auto) Absolute Lymphs (auto) Nucleated RBC % Sodium Potassium Chloride Carbon Dioxide Anion Gap BUN Creatinine Estim Creat Clear Calc Est GFR (MDRD) Af Amer Est GFR (MDRD) Non-Af BUN/Creatinine Ratio Glucose Calcium Total Bilirubin AST ALT Alkaline Phosphatase Troponin I High Sens 3578.1 H* 3761.5 H* Total Protein Albumin Globulin Albumin/Globulin Ratio Lipase Cardiology Labs/Tests 10/12/20 22:58: WBC 14.0 H, RBC 5.33, Hgb 14.8, Hct 45.8, MCV 85.9, MCH 27.8, MCHC 32.3, Plt Count 369, MPV 10.9, Immature Gran % (Auto) 0.500, Neut % (Auto) 74.6 H, Lymph % (Auto) 19.6, [place] % (Auto) 4.6, Eos % (Auto) 0.3, Baso % (Auto) 0.4, Absolute Neuts (auto) 10.5 H, Nucleated RBC % 0 10/12/20 22:58: Sodium 139, Potassium 4.1, Chloride 106, Carbon Dioxide 21.0, Anion Gap 12, BUN 16, Creatinine 0.82, Est GFR (MDRD) Af Amer 85, Est GFR (MDRD) Non-Af 70, BUN/Creatinine Ratio 19.5, Glucose 170 H, Calcium 9.1, Total Bilirubin 0.60 10/13/20 06:02: WBC 18.0 H, RBC 4.86, Hgb 13.6, Hct 42.0, MCV 86.4, MCH 28.0, MCHC 32.4, Plt Count 319, MPV 9.8, Immature Gran % (Auto) 0.400, Neut % (Auto) 81.9 H, Lymph % (Auto) 13.4 L, [place] % (Auto) 4.1, Eos % (Auto) 0.0, Baso % (Auto) 0.2, Absolute Neuts (auto) 14.8 H, Nucleated RBC % 0 Rhythm: Sinus rhythm EKG: As noted above ECHO: As noted below Radiography Diagnostic Testing: Radiology Impression Acute Abdomen Series 10/12/20 23:37 IMPRESSION: Normal x-ray examination of the chest, abdomen, and pelvis. Electronically Signed: Abdoul Cancino DO at 0:19 EDT Tel , Service support , Abdomen/Pelvis CT 10/13/20 00:50 IMPRESSION: 1. No acute findings 2. Abnormal appearance of the uterus with what appears to be an enhancing fibroid as well as cystic dilation of the endometrium and lower uterine segment. Further evaluation with pelvic ultrasound would be helpful to further evaluate. Electronically Signed: Abdoul Cancino DO at 1:32 EDT Tel , Service support , Barium Swallow X-Ray 10/13/20 09:00 IMPRESSION: Complete obstruction of the EG junction with retained food in the distal esophagus. Electronically Signed: Abena Dixon, at 9:38 EDT Tel , Service support , Echocardiogram 10/13/20 14:12 Interpretation Summary The study was technically difficult. Contrast injection was performed. Moderate segmental systolic dysfunction (see wall motion). The estimated ejection fraction is 30 %. There is mild mitral annular calcification. Mild diffuse mitral valve thickening. Trivial mitral valve insufficiency. Mild to moderate (1-2+) tricuspid valve insufficiency. Mild focal aortic valve calcification. Right ventricular systolic pressure estimated to be 39 mmHg. Diastolic function is indeterminate. Comment: 2D echocardiographic images demonstrate an echodensity (approximately 1 cm x 1 cm in diameter) in the left ventricular apical area compatible with a left ventricular apical thrombus. Ordering Physician: Lakeisha Villafuerte Performed By: Thomas White RCS
[2020-10-13 21:20] LABS: Troponin-I HS 3235.1 pg/mL (3.0-53.7)
[2020-10-13] MEDS: TICAGRELOR 90 MG TABLET 180 MG PO (21:24)
[2020-10-13] MEDS: Carvedilol 3.125 MG TABLET PO (21:24)
[2020-10-13] MEDS: Atorvastatin Calcium 40 MG Tablet PO (21:24)
[2020-10-13] MEDS: Aspirin 325 MG Tablet PO (21:24)
[2020-10-13 21:51] LABS: International Normalized Ratio 1.2; Prothrombin Time (Protime)PT. 14.7 SECONDS (11.7-14.9)
[2020-10-13] MEDS: HEPARIN/D5w 25,000 UNITS 25,000 UNITS/250 ML IV.SOLN. 8 UNITS IV (22:07)
[2020-10-13] MEDS: Heparin Injection (Vial) 5,000 UNIT/ML VIAL 4000 UNIT IV (22:07)
[2020-10-14] VITALS (21 sets, daily range): BP systolic 119–141; BP diastolic 57–86; PULSE 73–89; RESP 16–18; TEMP 36.3–36.8; O2SAT 87–94
[2020-10-14 04:41] LABS: Absolute Lymphocyte Count 1.46 X10^3/uL (0.83-4.51); Absolute Neutrophil Count 28.3 X10^3/uL (2.0-7.7); Basophil# 0.05 X10^3/uL; Basophil% 0.2 % (0-1); Hematocrit 39.1 % (37-47); Hemoglobin 12.9 g/dL (12.0-15.0); Lymphocyte # 1.46 X10^3/ul (0.83-4.51); Lymphocyte % 4.6 % (19-41); Mean Corpuscular Hgb 28.3 pg (27.0-32.0); Mean Corpuscular Volume 85.7 fL (81-99); Monocyte# 1.46 X10^3/uL; Monocyte% 4.6 % (0-10); NRBC Flagged by Analyzer 0 % (0-5); Neutrophil # 28.25 X10^3/uL (2.7-7.7); Neutrophil % 89.9 % (47-70); POSITIVE COUNT YES; POSITIVE DIFFERENTIAL YES; Platelet Count 268 K/mm3 (150-450); RBC Distribution Width SD 47.2 fl (35.1-43.9); Red Blood Count 4.56 M/mm3 (4.2-5.4)
[2020-10-14 04:56] LABS: Differential Indicated SCAN CRITERIA MET; White Blood Count 31.5 K/mm3 (4.4-11.0)
[2020-10-14] MEDS: 0.9% Saline Lock 10 ML Syringe IV ×3 (05:15→22:03)
[2020-10-14] MEDS: 0.9% Normal Saline 1,000 ML 75 ML IV (05:15)
[2020-10-14 05:22] LABS: ALB/GLOB Ratio 0.6 RATIO (0.9-2.4); AST(SGOT) 79 U/L (15-37); Alanine Aminotransfer ALT/SGPT 42 U/L (13-56); Albumin, Serum 2.4 g/dL (3.2-5.0); Alkaline Phosphatase 64 U/L (45-117); Anion Gap 6 (5-15); BUN 18 mg/dL (7-18); BUN/Creat Ratio 16.7 RATIO (10-20); Calcium,Total 8.2 mg/dL (8.5-10.1); Chloride 114 mmol/L (98-107); Creatinine, Serum 1.08 mg/dL (0.55-1.02); EST Glomerular Filtration Rate 51 mL/min (>60); Est Glom Filt Rate - Afr Amer 62 mL/min (>60); Estimated Creatinine Clearance 28.22 ml/min; Globulin 3.9 g/dL (2.2-4.2); Glucose 165 mg/dL (74-106); Potassium 3.9 mmol/L (3.5-5.1); Protein, Total 6.3 g/dL (6.4-8.2); Sodium Level 141 mmol/L (136-145)
[2020-10-14 05:26] LABS: Differential Comment SCANNED
--- NOTE | 2020-10-14 05:55 | EKG12_ITS ---
Test Reason : AM Blood Pressure : / mmHG Vent. Rate : 082 BPM Atrial Rate : 082 BPM P-R Int : 136 ms QRS Dur : 126 ms QT Int : 482 ms P-R-T Axes : 035 -44 201 degrees QTc Int : 563 ms Sinus rhythm with Premature atrial complexes Left axis deviation Left bundle branch block Abnormal ECG Confirmed by BHAVYA KENNEDY, DI ([id number]), order editor KAY QUINTANA ([id number]) on 10/15/2020 12:35:15 PM Referred By: SUDHEER Confirmed By:DI LATIF MD
[2020-10-14] MEDS: TICAGRELOR 90 MG TABLET PO (06:02)
[2020-10-14] MEDS: Carvedilol 3.125 MG TABLET PO ×2 (06:02→21:59)
[2020-10-14] MEDS: Aspirin 81 MG TAB.CHEW PO (06:03)
--- NOTE | 2020-10-14 07:33 | PN.SURG_ITS ---
Subjective Subjective Patient reports she tolerated clear liquids yesterday evening. Objective Data Objective Data Vital Signs: Vital Signs Temp Pulse Resp BP Pulse Ox 97.4 F L 81 18 126/86 H 93 10/14/20 06:01 10/14/20 06:01 10/14/20 06:01 10/14/20 06:01 10/14/20 06:01 Oxygen Flow Rate (L/min) 2 Oxygen Delivery Method Nasal Cannula Weight: 126 lb 5.198 oz Body Mass Index (BMI) 23.8 Intake & Output: Intake and Output for Last 24 Hours 10/12/20 10/13/20 10/14/20 23:59 23:59 23:59 Intake Total 2027. / 2027. 676.74 / 676.74 Balance / 676.74 / 676.74 Lab / Micro Data Result Diagrams: 10/14/20 04:34 10/14/20 04:34 Labs: Laboratory Results - last 24 hr 10/13/20 10/13/20 10/13/20 15:15 17:00 20:50 WBC RBC Hgb Hct MCV MCH MCHC RDW Std Deviation RDW Coeff of Celi Plt Count MPV Immature Gran % (Auto) Neut % (Auto) Lymph % (Auto) [place] % (Auto) Eos % (Auto) Baso % (Auto) Absolute Neuts (auto) Absolute Lymphs (auto) Nucleated RBC % Differential Comment Diff Path Review PT INR APTT Sodium Potassium Chloride Carbon Dioxide Anion Gap BUN Creatinine Estim Creat Clear Calc Est GFR (MDRD) Af Amer Est GFR (MDRD) Non-Af BUN/Creatinine Ratio Glucose Calcium Total Bilirubin AST ALT Alkaline Phosphatase Troponin I High Sens 3578.1 H* 3761.5 H* 3235.1 H* Total Protein Albumin Globulin Albumin/Globulin Ratio 10/13/20 10/14/20 10/14/20 21:33 04:34 04:34 WBC 31.5 H* RBC 4.56 Hgb 12.9 Hct 39.1 MCV 85.7 MCH 28.3 MCHC 33.0 RDW Std Deviation 47.2 H RDW Coeff of Celi 15.0 H Plt Count 268 MPV 10.0 Immature Gran % (Auto) 0.700 Neut % (Auto) 89.9 H Lymph % (Auto) 4.6 L [place] % (Auto) 4.6 Eos % (Auto) 0.0 Baso % (Auto) 0.2 Absolute Neuts (auto) 28.3 H Absolute Lymphs (auto) 1.46 Nucleated RBC % 0 Differential Comment SCANNED Diff Path Review May foll PT 14.7 INR 1.2 APTT 27.0 Sodium 141 Potassium 3.9 Chloride 114 H Carbon Dioxide 21.0 Anion Gap 6 BUN 18 Creatinine 1.08 H Estim Creat Clear Calc 28.22 Est GFR (MDRD) Af Amer 62 Est GFR (MDRD) Non-Af 51 L BUN/Creatinine Ratio 16.7 Glucose 165 H Calcium 8.2 L Total Bilirubin 1.80 H AST 79 H ALT 42 Alkaline Phosphatase 64 Troponin I High Sens Total Protein 6.3 L Albumin 2.4 L Globulin 3.9 Albumin/Globulin Ratio 0.6 L 10/14/20 04:34 WBC RBC Hgb Hct MCV MCH MCHC RDW Std Deviation RDW Coeff of Celi Plt Count MPV Immature Gran % (Auto) Neut % (Auto) Lymph % (Auto) [place] % (Auto) Eos % (Auto) Baso % (Auto) Absolute Neuts (auto) Absolute Lymphs (auto) Nucleated RBC % Differential Comment Diff Path Review PT INR APTT 160.0 H* Sodium Potassium Chloride Carbon Dioxide Anion Gap BUN Creatinine Estim Creat Clear Calc Est GFR (MDRD) Af Amer Est GFR (MDRD) Non-Af BUN/Creatinine Ratio Glucose Calcium Total Bilirubin AST ALT Alkaline Phosphatase Troponin I High Sens Total Protein Albumin Globulin Albumin/Globulin Ratio Radiography Diagnostic Testing: Radiology Impression Barium Swallow X-Ray 10/13/20 09:00 IMPRESSION: Complete obstruction of the EG junction with retained food in the distal esophagus. Electronically Signed: Abena Dixon, at 9:38 EDT Tel , Service support , Echocardiogram 10/13/20 14:12 Interpretation Summary The study was technically difficult. Contrast injection was performed. Moderate segmental systolic dysfunction (see wall motion). The estimated ejection fraction is 30 %. There is mild mitral annular calcification. Mild diffuse mitral valve thickening. Trivial mitral valve insufficiency. Mild to moderate (1-2+) tricuspid valve insufficiency. Mild focal aortic valve calcification. Right ventricular systolic pressure estimated to be 39 mmHg. Diastolic function is indeterminate. Comment: 2D echocardiographic images demonstrate an echodensity (approximately 1 cm x 1 cm in diameter) in the left ventricular apical area compatible with a left ventricular apical thrombus. Ordering Physician: Lakeisha Villafuerte Performed By: Thomas White RCS Physical Exam Const oriented x3 and no apparent distress Resp normal respiratory effort Cardio regular rate and regular rhythm GI normal to inspection, nondistended, normoactive bowel sounds Assessment & Plan Assessment/Plan (1) Foreign body: PLAN: Patient had EGD with passage of impacted food bolus yesterday afternoon. She tolerated clears yesterday evening. She had elevated troponins and cardiology is working her up. Once it is okay with the other services she may be advanced to a mechanical soft diet and she should follow-up with me for repeat elective EGD. Recommend going home on PPI. Sadi Summers MD Pager: [facility] [address] [place] [address], [address] [place] [address] Office:
--- NOTE | 2020-10-14 08:43 | CASEMGMT ---
According to the [facility] website, the following are in-network tertiary facilities: [facility], [place], [facility], [facility], [facility], [facility], and . Christophe GOTTI CM
[2020-10-14] MEDS: Multivitamins,Ther W-Minerals Tablet 1 TABLET PO (10:32)
--- NOTE | 2020-10-14 10:41 | CASEMGMT ---
This RN CM to room with CAMPOS form, explanation done-pt/ voice understanding, and signed(as pt had a right radial heart cath this am). Original to chart and copy to pt. Pt provided with MCR IP vs OBS booklet. Pt to be sent home on Eliquis and provided with an Eliquis 30 day trial card at this time. CM to follow for Eliquis coverage/co-pay. SStaten SHEN CM
[2020-10-14] MEDS: Lisinopril 2.5 MG Tablet PO ×2 (11:20→22:00)
[2020-10-14 12:24] LABS: Pathologist Review Reviewed
--- NOTE | 2020-10-14 12:27 | PN.HOSP_ITS ---
Documented by User: Lisa Atkins NP, REDEVELOPMENT SPECIALIST-C 10/14/20 12:43 Subjective Subjective Patient seen and examined. Underwent heart cath this morning which showed normal coronary arteries, reduced EF. Patient denies current symptoms or complaints. Tolerating liquid diet/mechanical soft diet. Objective Data Objective Data Vital Signs: Vital Signs Temp Pulse Resp BP Pulse Ox 98.3 F 75 16 128/60 H 92 10/14/20 12:00 10/14/20 12:00 10/14/20 12:00 10/14/20 12:00 10/14/20 12:00 Oxygen Flow Rate (L/min) 2 Oxygen Delivery Method Nasal Cannula Weight: 126 lb 5.198 oz Body Mass Index (BMI) 23.8 Intake & Output: Intake and Output for Last 24 Hours 10/12/20 10/13/20 10/14/20 23:59 23:59 23:59 Intake Total 2027. / 2027. 1026.74 / 1026.74 Balance / 1026.74 / 1026.74 Lab / Micro Data Result Diagrams: 10/14/20 04:34 10/14/20 04:34 Labs: Laboratory Results - last 24 hr 10/13/20 10/13/20 10/13/20 15:15 17:00 20:50 WBC RBC Hgb Hct MCV MCH MCHC RDW Std Deviation RDW Coeff of Celi Plt Count MPV Immature Gran % (Auto) Neut % (Auto) Lymph % (Auto) [place] % (Auto) Eos % (Auto) Baso % (Auto) Absolute Neuts (auto) Absolute Lymphs (auto) Nucleated RBC % Differential Comment Diff Path Review PT INR APTT Sodium Potassium Chloride Carbon Dioxide Anion Gap BUN Creatinine Estim Creat Clear Calc Est GFR (MDRD) Af Amer Est GFR (MDRD) Non-Af BUN/Creatinine Ratio Glucose Calcium Total Bilirubin AST ALT Alkaline Phosphatase Troponin I High Sens 3578.1 H* 3761.5 H* 3235.1 H* Total Protein Albumin Globulin Albumin/Globulin Ratio 10/13/20 10/14/20 10/14/20 21:33 04:34 04:34 WBC 31.5 H* RBC 4.56 Hgb 12.9 Hct 39.1 MCV 85.7 MCH 28.3 MCHC 33.0 RDW Std Deviation 47.2 H RDW Coeff of Celi 15.0 H Plt Count 268 MPV 10.0 Immature Gran % (Auto) 0.700 Neut % (Auto) 89.9 H Lymph % (Auto) 4.6 L [place] % (Auto) 4.6 Eos % (Auto) 0.0 Baso % (Auto) 0.2 Absolute Neuts (auto) 28.3 H Absolute Lymphs (auto) 1.46 Nucleated RBC % 0 Differential Comment SCANNED Diff Path Review Reviewed PT 14.7 INR 1.2 APTT 27.0 Sodium 141 Potassium 3.9 Chloride 114 H Carbon Dioxide 21.0 Anion Gap 6 BUN 18 Creatinine 1.08 H Estim Creat Clear Calc 28.22 Est GFR (MDRD) Af Amer 62 Est GFR (MDRD) Non-Af 51 L BUN/Creatinine Ratio 16.7 Glucose 165 H Calcium 8.2 L Total Bilirubin 1.80 H AST 79 H ALT 42 Alkaline Phosphatase 64 Troponin I High Sens Total Protein 6.3 L Albumin 2.4 L Globulin 3.9 Albumin/Globulin Ratio 0.6 L 10/14/20 04:34 WBC RBC Hgb Hct MCV MCH MCHC RDW Std Deviation RDW Coeff of Celi Plt Count MPV Immature Gran % (Auto) Neut % (Auto) Lymph % (Auto) [place] % (Auto) Eos % (Auto) Baso % (Auto) Absolute Neuts (auto) Absolute Lymphs (auto) Nucleated RBC % Differential Comment Diff Path Review PT INR APTT 160.0 H* Sodium Potassium Chloride Carbon Dioxide Anion Gap BUN Creatinine Estim Creat Clear Calc Est GFR (MDRD) Af Amer Est GFR (MDRD) Non-Af BUN/Creatinine Ratio Glucose Calcium Total Bilirubin AST ALT Alkaline Phosphatase Troponin I High Sens Total Protein Albumin Globulin Albumin/Globulin Ratio Radiography Diagnostic Testing: Radiology Impression Echocardiogram 10/13/20 14:12 Interpretation Summary The study was technically difficult. Contrast injection was performed. Moderate segmental systolic dysfunction (see wall motion). The estimated ejection fraction is 30 %. There is mild mitral annular calcification. Mild diffuse mitral valve thickening. Trivial mitral valve insufficiency. Mild to moderate (1-2+) tricuspid valve insufficiency. Mild focal aortic valve calcification. Right ventricular systolic pressure estimated to be 39 mmHg. Diastolic function is indeterminate. Comment: 2D echocardiographic images demonstrate an echodensity (approximately 1 cm x 1 cm in diameter) in the left ventricular apical area compatible with a left ventricular apical thrombus. Ordering Physician: Lakeisha Villafuerte Performed By: Thomas White RCS Physical Exam Const alert, oriented x3 and no apparent distress Orientation / Consciousness: awake, oriented to person, oriented to place and oriented to time HEENT normocephalic and moist oral mucous membranes Eyes PERRL, EOMs intact bilaterally and conjunctivae normal Neck no lymphadenopathy Resp normal respiratory effort and clear to auscultation bilaterally Cardio regular rate, regular rhythm and no murmurs Peripheral Pulses: pulses 2+ throughout GI normal to inspection, nondistended, normoactive bowel sounds, non-tender and non-distended Extremity normal to inspection Skin no rashes or lesions noted Lesions: no lesions Rashes: no rashes Trauma: no lacerations or abrasions Neuro CN's II-XII intact bilaterally, no focal motor deficits, no sensory deficits noted and deep tendon reflexes 2+ bilaterally Psych mental status grossly normal and affect normal Assessment & Plan Assessment/Plan (1) Left ventricular thrombus: (2) Non-ST elevation (NSTEMI) myocardial infarction: (3) Cardiomyopathy: QUALIFIERS: Cardiomyopathy type: unspecified Qualified Code(s): I42.9 - Cardiomyopathy, unspecified PLAN: 1. Foreign body esophagus, dysphagia-General surgery consulted. Underwent EGD which showed food found in the esophagus, food was advanced into the stomach, too much food present to inspect the GE junction. Plan for follow- up with general surgery as outpatient 1 week from discharge for repeat EGD. Speech therapy consulted. Continue dietary modifications per speech therapy recommendations including mechanical soft diet. 2. NSTEMI/Nonischemic cardiomyopathy-echocardiogram demonstrated an EF of 30%, mild to moderate tricuspid valve insufficiency, RVSP estimated to be 39 mmHg. Cath negative for CAD. Continue medical management. 3. Left ventricular thrombus-initiated on Eliquis. 4. Acute hypoxia-wean oxygen as tolerated. Walking pulse ox prior to discharge. 20 mg IV Lasix x1. Chest x-ray pending. 5. Leukocytosis-reactive? Obtain chest x-ray, UA. DVT prophylaxis-Eliquis This patient was seen by MINA Whiteside under the supervision of Dr. Villafuerte. Documented by User: Dr. Lakeisha Villafuerte MD 10/14/20 17:10 Objective Data Lab / Micro Data Result Diagrams: 10/14/20 04:34 10/14/20 04:34 Charges/Coding Addendum Addendum: This patient was seen in conjunction with Lisa Atkins. I have independently interviewed and examined the patient and reviewed pertinent historical, laboratory, and other data. I have reviewed her note and concur with her documentation Patient was seen and examined. She had a cardiac cath that showed clean coronaries. She is on 2 L of oxygen. No fevers or chills. Physical Exam: Gen: Comfortable, not pale, not jaundiced CVS:HS I +II, regular, no murmurs RESP: Diminished at lung bases GI: BS present and normal, soft, nontender, no palpable organs EXT:No edema Labs: ASSESSMENT: 1. Acute gastroesophageal obstruction, unclear etiology for now, status post EGD 2. Acute non-STEMI 3. Acute left ventricular thrombus 4. Acute nonischemic cardiomyopathy/Takotsubo cardiomyopathy 5. ANIA 6. Leukocytosis 7. Hypoxia Plan: Continue on IV PPI, aspirin, statin, carvedilol, lisinopril, apixaban Repeat blood work in a.m. Wean off oxygen Visit Charges Inpatient E&M: 96075 Subs Hosp L2 Multi Select Codes Visit Charges Visit Charges: 59752 Subs Hosp L3
--- NOTE | 2020-10-14 13:00 | RAD_ITS ---
STUDY: X-RAY CHEST REASON FOR EXAM: Female, 85 years old. hypoxia, leukocytosis TECHNIQUE: 2 views COMPARISON: 10/12/2020 FINDINGS: There is now noted diffuse patchy changes involving both lung jimenez more so on the left and new finding since the previous examination. Possibility of Covd-19 cannot be ruled out. Please check the lab tests otherwise this could be just bilateral infiltrative changes due to infectious disease. There is blunting of the right costophrenic angle. The trachea is in the midline. The visualized bones are osteoporotic. RAD/Chest PA and Lateral IMPRESSION: Newly developed diffuse patchy changes involving both lung jimenez more so on the left please see the discussion above. Electronically Signed: Abena Dixon, at 13:17 EDT Tel , Service support ,
[2020-10-14] MEDS: Furosemide 20 MG/2 ML VIAL IV (13:18)
--- NOTE | 2020-10-14 14:06 | PN.CARD_ITS ---
Subjective Subjective The patient underwent diagnostic cardiac catheterization earlier this day. She appears to have had no acute adverse complaint/concern. Objective Data Vital Signs: Vital Signs Temp Pulse Resp BP Pulse Ox 98.3 F 76 18 141/67 H 93 10/14/20 13:10 10/14/20 13:10 10/14/20 13:10 10/14/20 13:10 10/14/20 13:10 Oxygen Flow Rate (L/min) 2 Oxygen Delivery Method Nasal Cannula Weight: 126 lb 5.198 oz Body Mass Index (BMI) 23.8 Intake & Output: Intake and Output for Last 24 Hours 10/12/20 10/13/20 10/14/20 23:59 23:59 23:59 Intake Total 2027. / 2027. 1601.74 / 1601.74 Balance / 1601.74 / 1601.74 Lab / Micro Data Result Diagrams: 10/14/20 04:34 10/14/20 04:34 Labs: Laboratory Results - last 24 hr 10/13/20 10/13/20 10/13/20 15:15 17:00 20:50 WBC RBC Hgb Hct MCV MCH MCHC RDW Std Deviation RDW Coeff of Celi Plt Count MPV Immature Gran % (Auto) Neut % (Auto) Lymph % (Auto) [place] % (Auto) Eos % (Auto) Baso % (Auto) Absolute Neuts (auto) Absolute Lymphs (auto) Nucleated RBC % Differential Comment Diff Path Review PT INR APTT Sodium Potassium Chloride Carbon Dioxide Anion Gap BUN Creatinine Estim Creat Clear Calc Est GFR (MDRD) Af Amer Est GFR (MDRD) Non-Af BUN/Creatinine Ratio Glucose Calcium Total Bilirubin AST ALT Alkaline Phosphatase Troponin I High Sens 3578.1 H* 3761.5 H* 3235.1 H* Total Protein Albumin Globulin Albumin/Globulin Ratio 10/13/20 10/14/20 10/14/20 21:33 04:34 04:34 WBC 31.5 H* RBC 4.56 Hgb 12.9 Hct 39.1 MCV 85.7 MCH 28.3 MCHC 33.0 RDW Std Deviation 47.2 H RDW Coeff of Celi 15.0 H Plt Count 268 MPV 10.0 Immature Gran % (Auto) 0.700 Neut % (Auto) 89.9 H Lymph % (Auto) 4.6 L [place] % (Auto) 4.6 Eos % (Auto) 0.0 Baso % (Auto) 0.2 Absolute Neuts (auto) 28.3 H Absolute Lymphs (auto) 1.46 Nucleated RBC % 0 Differential Comment SCANNED Diff Path Review Reviewed PT 14.7 INR 1.2 APTT 27.0 Sodium 141 Potassium 3.9 Chloride 114 H Carbon Dioxide 21.0 Anion Gap 6 BUN 18 Creatinine 1.08 H Estim Creat Clear Calc 28.22 Est GFR (MDRD) Af Amer 62 Est GFR (MDRD) Non-Af 51 L BUN/Creatinine Ratio 16.7 Glucose 165 H Calcium 8.2 L Total Bilirubin 1.80 H AST 79 H ALT 42 Alkaline Phosphatase 64 Troponin I High Sens Total Protein 6.3 L Albumin 2.4 L Globulin 3.9 Albumin/Globulin Ratio 0.6 L 10/14/20 04:34 WBC RBC Hgb Hct MCV MCH MCHC RDW Std Deviation RDW Coeff of Celi Plt Count MPV Immature Gran % (Auto) Neut % (Auto) Lymph % (Auto) [place] % (Auto) Eos % (Auto) Baso % (Auto) Absolute Neuts (auto) Absolute Lymphs (auto) Nucleated RBC % Differential Comment Diff Path Review PT INR APTT 160.0 H* Sodium Potassium Chloride Carbon Dioxide Anion Gap BUN Creatinine Estim Creat Clear Calc Est GFR (MDRD) Af Amer Est GFR (MDRD) Non-Af BUN/Creatinine Ratio Glucose Calcium Total Bilirubin AST ALT Alkaline Phosphatase Troponin I High Sens Total Protein Albumin Globulin Albumin/Globulin Ratio Cardiology Labs/Tests 10/13/20 21:33: PT 14.7, INR 1.2, APTT 27.0 10/14/20 04:34: WBC 31.5 H*, RBC 4.56, Hgb 12.9, Hct 39.1, MCV 85.7, MCH 28.3, MCHC 33.0, Plt Count 268, MPV 10.0, Immature Gran % (Auto) 0.700, Neut % (Auto) 89.9 H, Lymph % (Auto) 4.6 L, [place] % (Auto) 4.6, Eos % (Auto) 0.0, Baso % (Auto) 0.2, Absolute Neuts (auto) 28.3 H, Nucleated RBC % 0 10/14/20 04:34: Sodium 141, Potassium 3.9, Chloride 114 H, Carbon Dioxide 21.0, Anion Gap 6, BUN 18, Creatinine 1.08 H, Est GFR (MDRD) Af Amer 62, Est GFR (MDRD) Non-Af 51 L, BUN/Creatinine Ratio 16.7, Glucose 165 H, Calcium 8.2 L, Total Bilirubin 1.80 H 10/14/20 04:34: APTT 160.0 H* Rhythm: Sinus rhythm Radiography Diagnostic Testing: Radiology Impression Echocardiogram 10/13/20 14:12 Interpretation Summary The study was technically difficult. Contrast injection was performed. Moderate segmental systolic dysfunction (see wall motion). The estimated ejection fraction is 30 %. There is mild mitral annular calcification. Mild diffuse mitral valve thickening. Trivial mitral valve insufficiency. Mild to moderate (1-2+) tricuspid valve insufficiency. Mild focal aortic valve calcification. Right ventricular systolic pressure estimated to be 39 mmHg. Diastolic function is indeterminate. Comment: 2D echocardiographic images demonstrate an echodensity (approximately 1 cm x 1 cm in diameter) in the left ventricular apical area compatible with a left ventricular apical thrombus. Ordering Physician: Lakeisha Villafuerte Performed By: Thomas White RCS Chest X-Ray 10/14/20 13:00 IMPRESSION: Newly developed diffuse patchy changes involving both lung jimenez more so on the left please see the discussion above. Electronically Signed: Abena Destiny, at 13:17 EDT Tel , Service support , Physical Exam Const alert and oriented x3 Orientation / Consciousness: awake HEENT normocephalic, head/scalp atraumatic and hearing grossly normal bilaterally Eyes PERRL, EOMs intact bilaterally, conjunctivae normal and no scleral icterus Neck full ROM and supple Chest inspection of chest normal Resp normal respiratory effort and clear to auscultation bilaterally Cardio regular rate, regular rhythm, S1 normal heart sound and S2 normal heart sound GI normal to inspection, nondistended, normoactive bowel sounds Extremity no pedal edema Peripheral Pulses: Yes radial pulses present right 2+ Skin no rashes or lesions noted Neuro oriented x3, CN's II-XII intact bilaterally and moves all extremities Psych mental status grossly normal Assessment & Plan Assessment/Plan (1) Non-ST elevation (NSTEMI) myocardial infarction: PLAN: The patient presents with signs and symptoms and objective findings compatible with a non-ST segment elevation [place]. The patient has undergone further evaluation with diagnostic cardiac catheterization. Based upon the findings she did not have angiographically significant CAD to explain her non-ST segment elevation TX or her left ventricular regional wall motion abnormalities/diminished LV systolic function. Thus it appears at this time her findings may be compatible with a stress- induced cardiomyopathy/Takotsubo syndrome. She will need to continue medical management and follow-up. (2) Cardiomyopathy: QUALIFIERS: Cardiomyopathy type: unspecified Qualified Code(s): I42.9 - Cardiomyopathy, unspecified PLAN: The patient does have findings compatible with an underlying cardiomyopathy. Based upon her cardiac catheterization findings there is concern that her cardiomyopathy is related to an underlying stress-induced/Takotsubo syndrome. She will continue medical therapy which will include beta-blockers and afterload reducing agents as tolerated. Over time she will need follow-up with echocardiographic studies to monitor her left ventricular wall motion and systolic function. (3) Left ventricular thrombus: PLAN: The patient's left ventricular wall motion and systolic function was assessed with a transthoracic echocardiogram. During this evaluation she was found to have findings compatible with a left ventricular apical thrombus. This could be secondary to her left ventricular wall motion abnormalities and diminished LV systolic function. At the moment she will need to continue to be monitored. She will initiate medical therapy which will include anticoagulant therapy. (4) Abnormal electrocardiogram: PLAN: She does have an abnormal electrocardiogram with findings of an underlying left bundle branch block pattern. This could be related to a non-CAD cardiomyopathy. She will continue evaluation and care as noted above. Addt'l Comments The patient's case was discussed and reviewed with the patient and Dr. Villafuerte. This note was generated using a voice recognition system and there may be incorrect words, spelling or punctuation that were not noted when reviewing the office note prior to saving.
--- NOTE | 2020-10-14 14:50 | CASEMGMT ---
SHEN BERRY assessment: Face to Face with patient for initial transition planning/care coordination assessment. SHEN BERRY introduced self and role at [facility], pt voices understanding and consents to assessment. Pt is sitting up in chair in no distress on 2L nc. Pt is A/Ox4 and answers all questions appropriately. Care providers, pharmacy, and demographics verified. Presentation: Pt c/o vomiting immediately after eating Admitting dx: Vomiting, NSTEMI PCP: Pt states no current PCP but provided with a list of local PCP's at this time. Specialists: Pt states no current specialists. Preferred Pharmacy: [facility] Insurance: AeMCR Prescription Benefit: AeMCR Living Will/HPOA: Pt states does not have LW/HPOA and declines AD info. LNOK: Brant Zaidi, Living Arrangements: Pt states lives in 1 story home with with a one step in and states no concerns at home. Pt states is independent with ADL's. Transportation: Pt states can drive self but does most of driving and states no transportation concerns. DME/HHC: Pt states has a cane and grab bars and states no need for any further DME. Pt states no preference for DME company if she qualifies for home oxygen at discharge. Pt states no hx of HHC or SNF, but did have an [employer] nurse come out to home recently. Pt states no concerns with going home at time of discharge. Pt is retired. Pt states does not smoke cigarettes or drink ETOH. Pt states no further concerns/needs. CM to follow for home oxygen testing, PT/OT evals, and any further discharge planning/needs. Advised pt to ask for CM if any further questions/concerns/needs arise, voices understanding. Pt Goal: Home Plan: Home, pending home oxygen testing, PT/OT recommendations. [place] SHEN BERRY
[2020-10-14] MEDS: 0.9% Normal Saline 1,000 ML 100 ML IV (17:43)
[2020-10-14 17:56] LABS: Mucous, Urine 0 SEEN /hpf (<or=2+); Red Blood Cells-Urine 0 SEEN /hpf (0-5); Squamous Epithelial Cells - UA 0 SEEN /hpf (5-10)
[2020-10-14 18:03] LABS: Color, Urine Yellow (Yellow); Glucose, Dipstick 50 mg/dl (Normal); Ketone-Dipstick Negative (Negative); Leukocyte Esterase-Dipstick Negative /ul (Negative); Nitrite-Dipstick Negative (Negative); Occult Blood-Urine 25 /ul (Negative); Protein-Dipstick 15 mg/dl (Negative); Urine Bilirubin Dipstick Negative (Negative); Urine Clarity Clear (Clear); Urine Urobilinogen Normal (Normal)
[2020-10-14 18:11] LABS: Bacteria 1+ /hpf (None Seen); White Blood Cells 0-5 SEEN /hpf (0-5)
[2020-10-14] MEDS: Atorvastatin Calcium 40 MG Tablet PO (21:59)
[2020-10-14] MEDS: APIXABAN 2.5 MG TABLET PO (21:59)
[2020-10-15] VITALS (18 sets, daily range): BP systolic 99–134; BP diastolic 51–67; PULSE 76–97; RESP 18–22; TEMP 36.7–37.2; O2SAT 90–97
[2020-10-15] MEDS: 0.9% Normal Saline 1,000 ML 100 ML IV (05:46)
[2020-10-15 07:02] LABS: Absolute Lymphocyte Count 1.62 X10^3/uL (0.83-4.51); Absolute Neutrophil Count 27.4 X10^3/uL (2.0-7.7); Basophil# 0.09 X10^3/uL; Basophil% 0.3 % (0-1); Hemoglobin 11.8 g/dL (12.0-15.0); Lymphocyte # 1.62 X10^3/ul (0.83-4.51); Lymphocyte % 5.1 % (19-41); Mean Corp Hgb Conc 32.8 g/dL (32-36); Mean Corpuscular Hgb 28.3 pg (27.0-32.0); Mean Corpuscular Volume 86.3 fL (81-99); Mean Platelet Vol. 10.8 fl (6.2-12.0); Monocyte# 1.84 X10^3/uL; Monocyte% 5.8 % (0-10); NRBC Flagged by Analyzer 0 % (0-5); Neutrophil # 27.38 X10^3/uL (2.7-7.7); Neutrophil % 86.5 % (47-70); POSITIVE COUNT YES; POSITIVE DIFFERENTIAL YES; Platelet Count 266 K/mm3 (150-450); RBC Distribution Width CV 15.2 % (11.6-14.6); RBC Distribution Width SD 48.2 fl (35.1-43.9); Red Blood Count 4.17 M/mm3 (4.2-5.4)
[2020-10-15 07:05] LABS: Differential Indicated SCAN CRITERIA MET; White Blood Count 31.7 K/mm3 (4.4-11.0)
--- NOTE | 2020-10-15 07:20 | PCM.PN.SRG ---
Subjective Subjective Patient reports no issues with swallowing. He denies any chest pain or nausea or vomiting. Objective Data Objective Data Vital Signs: Vital Signs Temp Pulse Resp BP Pulse Ox 98.3 F 87 18 134/67 H 92 10/15/20 04:10 10/15/20 04:10 10/15/20 04:10 10/15/20 04:10 10/15/20 04:10 Oxygen Flow Rate (L/min) 4 Oxygen Delivery Method Nasal Cannula Weight: 126 lb 5.198 oz Body Mass Index (BMI) 23.8 Intake & Output: Intake and Output for Last 24 Hours 10/13/20 10/14/20 10/15/20 23:59 23:59 23:59 Intake Total / / 1120 / 112 Output Total 300 / 300 0 / 0 Balance / 171.74 / 74 1120 / 1120 Lab / Micro Data Result Diagrams: 10/15/20 05:40 10/14/20 04:34 Labs: Laboratory Results - last 24 hr 10/14/20 10/14/20 10/14/20 04:34 14:30 17:35 WBC RBC Hgb Hct MCV MCH MCHC RDW Std Deviation RDW Coeff of Celi Plt Count MPV Immature Gran % (Auto) Neut % (Auto) Lymph % (Auto) [place] % (Auto) Eos % (Auto) Baso % (Auto) Absolute Neuts (auto) Absolute Lymphs (auto) Nucleated RBC % Diff Path Review Reviewed Urine Color Yellow Urine Clarity Clear Urine pH 5.0 Ur Specific [place] 1.010 Urine Protein 15 H Urine Glucose (UA) 50 H Urine Ketones Negative Urine Occult Blood 25 H Urine Nitrite Negative Urine Bilirubin Negative Urine Urobilinogen Normal Ur Leukocyte Esterase Negative Urine RBC 0 SEEN Urine WBC 0-5 SEEN Ur Squamous Epith Cells 0 SEEN Urine Bacteria 1+ Urine Mucus 0 SEEN COVID-19 ([place]) Not Detected 10/15/20 05:40 WBC 31.7 H* RBC 4.17 L Hgb 11.8 L Hct 36.0 L MCV 86.3 MCH 28.3 MCHC 32.8 RDW Std Deviation 48.2 H RDW Coeff of Celi 15.2 H Plt Count 266 MPV 10.8 Immature Gran % (Auto) 2.300 H Neut % (Auto) 86.5 H Lymph % (Auto) 5.1 L [place] % (Auto) 5.8 Eos % (Auto) 0.0 Baso % (Auto) 0.3 Absolute Neuts (auto) 27.4 H Absolute Lymphs (auto) 1.62 Nucleated RBC % 0 Diff Path Review Urine Color Urine Clarity Urine pH Ur Specific [place] Urine Protein Urine Glucose (UA) Urine Ketones Urine Occult Blood Urine Nitrite Urine Bilirubin Urine Urobilinogen Ur Leukocyte Esterase Urine RBC Urine WBC Ur Squamous Epith Cells Urine Bacteria Urine Mucus COVID-19 ([place]AM[place]) Radiography Diagnostic Testing: Radiology Impression Chest X-Ray 10/14/20 13:00 IMPRESSION: Newly developed diffuse patchy changes involving both lung jimenez more so on the left please see the discussion above. Electronically Signed: Abena Dixon, at 13:17 EDT Tel , Service support , Physical Exam Const oriented x3 and no apparent distress Resp normal respiratory effort Cardio regular rate and regular rhythm GI normal to inspection, nondistended, normoactive bowel sounds Assessment & Plan Assessment/Plan (1) Foreign body: PLAN: Patient had a stricture of the GE junction. She requires an outpatient EGD for further evaluation. She should follow up with me for this. She was started on mechanical soft diet. I am unsure why her white count remains markedly elevated. She had a chest x-ray yesterday showed possible infiltrate. Dr. Pacheco will be covering for me after today. Please notify her if there are any issues or concerns. Sadi Summers MD Pager: [facility] [address] [place] [address], [address] [place] [address] Office:
[2020-10-15 07:22] LABS: Anion Gap 9 (5-15); BUN 23 mg/dL (7-18); BUN/Creat Ratio 17.4 RATIO (10-20); Calcium,Total 8.1 mg/dL (8.5-10.1); Chloride 111 mmol/L (98-107); Creatinine, Serum 1.32 mg/dL (0.55-1.02); EST Glomerular Filtration Rate 41 mL/min (>60); Est Glom Filt Rate - Afr Amer 49 mL/min (>60); Estimated Creatinine Clearance 23.09 ml/min; Glucose 108 mg/dL (74-106); Potassium 3.4 mmol/L (3.5-5.1); Sodium Level 139 mmol/L (136-145)
[2020-10-15 07:25] LABS: Differential Comment SCANNED
[2020-10-15] MEDS: Lisinopril 2.5 MG Tablet PO (08:51)
[2020-10-15] MEDS: Aspirin 81 MG TAB.CHEW PO (08:51)
[2020-10-15] MEDS: Multivitamins,Ther W-Minerals Tablet 1 TABLET PO (08:51)
[2020-10-15] MEDS: Carvedilol 3.125 MG TABLET PO ×2 (08:51→22:02)
[2020-10-15] MEDS: APIXABAN 2.5 MG TABLET PO ×2 (08:52→22:02)
[2020-10-15] MEDS: Potassium Chloride Oral Tablet 20 MEQ 40 MEQ PO (09:08)
[2020-10-15] MEDS: Furosemide 40 MG/4 ML Vial IV (09:55)
[2020-10-15] MEDS: 0.9% Saline Lock 10 ML Syringe IV ×3 (09:55→22:04)
--- NOTE | 2020-10-15 10:15 | PCM.PN.CARD ---
Subjective Subjective The patient is awake and alert. She notes her main concern today is she feels short of breath and dyspneic. She has required O2 support. Objective Data Vital Signs: Vital Signs Temp Pulse Resp BP Pulse Ox 98.2 F 88 22 H 130/58 H 90 10/15/20 10:00 10/15/20 10:00 10/15/20 10:00 10/15/20 10:00 10/15/20 10:00 Oxygen Flow Rate (L/min) 3 Oxygen Delivery Method Nasal Cannula Weight: 126 lb 5.198 oz Body Mass Index (BMI) 23.8 Intake & Output: Intake and Output for Last 24 Hours 10/13/20 10/14/20 10/15/20 23:59 23:59 23:59 Intake Total 2027. / 2027. / 1633.33 / 1633.33 Output Total 300 / 300 0 / 0 Balance 2027. / 2027. 1711.74 / 171.74 1633.33 / 1633.33 Lab / Micro Data Result Diagrams: 10/15/20 05:40 10/15/20 05:40 Labs: Laboratory Results - last 24 hr 10/14/20 10/14/20 10/14/20 04:34 14:30 17:35 WBC RBC Hgb Hct MCV MCH MCHC RDW Std Deviation RDW Coeff of Celi Plt Count MPV Immature Gran % (Auto) Neut % (Auto) Lymph % (Auto) [place] % (Auto) Eos % (Auto) Baso % (Auto) Absolute Neuts (auto) Absolute Lymphs (auto) Nucleated RBC % Differential Comment Diff Path Review Reviewed Sodium Potassium Chloride Carbon Dioxide Anion Gap BUN Creatinine Estim Creat Clear Calc Est GFR (MDRD) Af Amer Est GFR (MDRD) Non-Af BUN/Creatinine Ratio Glucose Calcium Urine Color Yellow Urine Clarity Clear Urine pH 5.0 Ur Specific [place] 1.010 Urine Protein 15 H Urine Glucose (UA) 50 H Urine Ketones Negative Urine Occult Blood 25 H Urine Nitrite Negative Urine Bilirubin Negative Urine Urobilinogen Normal Ur Leukocyte Esterase Negative Urine RBC 0 SEEN Urine WBC 0-5 SEEN Ur Squamous Epith Cells 0 SEEN Urine Bacteria 1+ Urine Mucus 0 SEEN COVID-19 ([place]) Not Detected 10/15/20 10/15/20 05:40 05:40 WBC 31.7 H* RBC 4.17 L Hgb 11.8 L Hct 36.0 L MCV 86.3 MCH 28.3 MCHC 32.8 RDW Std Deviation 48.2 H RDW Coeff of Celi 15.2 H Plt Count 266 MPV 10.8 Immature Gran % (Auto) 2.300 H Neut % (Auto) 86.5 H Lymph % (Auto) 5.1 L [place] % (Auto) 5.8 Eos % (Auto) 0.0 Baso % (Auto) 0.3 Absolute Neuts (auto) 27.4 H Absolute Lymphs (auto) 1.62 Nucleated RBC % 0 Differential Comment SCANNED Diff Path Review August Sodium 139 Potassium 3.4 L Chloride 111 H Carbon Dioxide 19.0 L Anion Gap 9 BUN 23 H Creatinine 1.32 H Estim Creat Clear Calc 23.09 Est GFR (MDRD) Af Amer 49 L Est GFR (MDRD) Non-Af 41 L BUN/Creatinine Ratio 17.4 Glucose 108 H Calcium 8.1 L Urine Color Urine Clarity Urine pH Ur Specific [place] Urine Protein Urine Glucose (UA) Urine Ketones Urine Occult Blood Urine Nitrite Urine Bilirubin Urine Urobilinogen Ur Leukocyte Esterase Urine RBC Urine WBC Ur Squamous Epith Cells Urine Bacteria Urine Mucus COVID-19 ([place]) Cardiology Labs/Tests 10/14/20 17:35: Urine Color Yellow, Urine Clarity Clear, Urine pH 5.0, Ur Specific [place] 1.010, Urine Protein 15 H, Urine Glucose (UA) 50 H, Urine Ketones Negative, Urine Occult Blood 25 H, Urine Nitrite Negative, Urine Bilirubin Negative, Urine Urobilinogen Normal, Ur Leukocyte Esterase Negative, Urine RBC 0 SEEN, Urine WBC 0-5 SEEN 10/15/20 05:40: WBC 31.7 H*, RBC 4.17 L, Hgb 11.8 L, Hct 36.0 L, MCV 86.3, MCH 28.3, MCHC 32.8, Plt Count 266, MPV 10.8, Immature Gran % (Auto) 2.300 H, Neut % (Auto) 86.5 H, Lymph % (Auto) 5.1 L, [place] % (Auto) 5.8, Eos % (Auto) 0.0, Baso % (Auto) 0.3, Absolute Neuts (auto) 27.4 H, Nucleated RBC % 0 10/15/20 05:40: Sodium 139, Potassium 3.4 L, Chloride 111 H, Carbon Dioxide 19.0 L, Anion Gap 9, BUN 23 H, Creatinine 1.32 H, Est GFR (MDRD) Af Amer 49 L, Est GFR (MDRD) Non-Af 41 L, BUN/Creatinine Ratio 17.4, Glucose 108 H, Calcium 8.1 L Rhythm: Sinus rhythm Radiography Diagnostic Testing: Radiology Impression Chest X-Ray 10/14/20 13:00 IMPRESSION: Newly developed diffuse patchy changes involving both lung jimenez more so on the left please see the discussion above. Electronically Signed: Abena Dixon, at 13:17 EDT Tel , Service support , Physical Exam Const alert and oriented x3 Orientation / Consciousness: awake HEENT normocephalic, head/scalp atraumatic and hearing grossly normal bilaterally Eyes PERRL, EOMs intact bilaterally, conjunctivae normal and no scleral icterus Neck full ROM and supple Chest inspection of chest normal Resp Auscultation: rales bilateral base and mid Cardio regular rate, regular rhythm, S1 normal heart sound and S2 normal heart sound GI normal to inspection, nondistended, normoactive bowel sounds Extremity no pedal edema Peripheral Pulses: Yes radial pulses present right 2+ Skin no rashes or lesions noted Neuro oriented x3, CN's II-XII intact bilaterally and moves all extremities Psych mental status grossly normal Assessment & Plan Assessment/Plan (1) Non-ST elevation (NSTEMI) myocardial infarction: PLAN: The patient presents with signs and symptoms and objective findings compatible with a non-ST segment elevation [place]. The patient has undergone further evaluation with diagnostic cardiac catheterization. Based upon the findings she did not have angiographically significant CAD to explain her non-ST segment elevation IL or her left ventricular regional wall motion abnormalities/diminished LV systolic function. 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 She will need to continue medical management and follow-up. (2) Cardiomyopathy: QUALIFIERS: Cardiomyopathy type: unspecified Qualified Code(s): I42.9 - Cardiomyopathy, unspecified PLAN: The patient does have findings compatible with an underlying cardiomyopathy. Based upon her cardiac catheterization findings there is concern that her cardiomyopathy is related to an underlying stress-induced/Takotsubo syndrome. She will continue medical therapy which will include beta-blockers and afterload reducing agents as tolerated. Based upon her respiratory status and physical examination findings there are concerns of an element of volume overload. Thus she is going to be given additional medical therapy with IV diuretics. Her respiratory status and physical examination will need to be followed. Over time she will need follow-up with echocardiographic studies to monitor her left ventricular wall motion and systolic function. (3) Left ventricular thrombus: PLAN: The patient's left ventricular wall motion and systolic function was assessed with a transthoracic echocardiogram. During this evaluation she was found to have findings compatible with a left ventricular apical thrombus. This could be secondary to her left ventricular wall motion abnormalities and diminished LV systolic function. At the moment she will need to continue to be monitored. She will initiate medical therapy which will include anticoagulant therapy. (4) Abnormal electrocardiogram: PLAN: She does have an abnormal electrocardiogram with findings of an underlying left bundle branch block pattern. This could be related to a non-CAD cardiomyopathy. She will continue evaluation and care as noted above. Addt'l Comments The patient's case has been discussed and reviewed with Dr. Villafuerte. This note was generated using a voice recognition system and there may be incorrect words, spelling or punctuation that were not noted when reviewing the office note prior to saving.
--- NOTE | 2020-10-15 12:31 | CL.D_ITS ---
Patient Name: JORDY DALTON Study Date: 10/14/2020 Performing: Mau Snyder MD Ht: 61 inches 155 cm : 1935 Wt: 125.8 lbs 57 kg Age: 85 Gender: female BSA: 1.55 PROCEDURE(S) PERFORMED [id number] CLINICAL PROFILE AND INDICATIONS Indications: ACS <= 24 hrs, Suspected CAD, LV Dysfunction Heart Failure: None Stress/Imaging Stress/Image Study Performed: No Angina Classification Anginal Classification w/in 2 Weeks: CCS IV CAD Presentations: Non-STEMI. CONCLUSIONS RECOMMENDATIONS Risk factor modification Medical therapy DESCRIPTION OF PROCEDURE The patient arrived to the procedure lab. The risks and benefits of the procedure as well as a full d escription of our services here and current unavailability of surgical backup were fully explained to the patient and/or their significant other prior to the catheterization. The Timeout was completed, verifying the correct patient and procedure. The patient's procedural site was prepped and draped in the usual fashion. Local anesthetic was given subcutaneously to right radial region with Lidocaine 2% . Using a modified Seldinger technique, arterial access was obtained via the right radial artery, a 6 Fr sheath was inserted. Left Coronary Artery selective angiography was performed in multiple views u sing a 5 Fr. 4.0 Heth catheter. Right Coronary Artery selective angiography was then performed in mu ltiple views using a 4 Fr. JR4 catheter. Right Coronary Artery selective angiography was then perform ed in multiple views using a 5 Fr. 4.0 Heth catheter.The arterial sheath was pulled and a TR Band was applied for hemostasis w/ 10ml air CORONARY ANGIOGRAPHY DOMINANCE: Right Dominant LEFT HEART ASSESSMENT Left Ventricular Ejection Fraction: Not assessed LEFT MAIN: Angiographically normal LEFT ANTERIOR DESCENDING ARTERY: PROX LAD: Mild luminal irregularities CIRCUMFLEX ARTERY: PROX CIRC: Mild luminal irregularities RIGHT CORONARY ARTERY: Angiographically normal COMPLICATIONS No Complications PROCEDURE MEDICATIONS Versed 0.5 mg IV Fentanyl 25 mcg IV Oxygen: 2 L/min via nasal cannula Oxygen: 4 L/min via nasal cannula Heparin given IA 10/14/2020 07:57:55 Nitro 100 mcg IA 10/14/2020 08:11:40 Verapamil 2.5mg, Ntg 100mcgs, 3000 units of Heparin given IA 10/14/2020 07:57:55 IV Bolus: .9 NaCl ml total 10/14/2020 08:18:32 SUMMARY OF HEMODYNAMIC DATA Time AIR REST ECG 07:24:22 AO 120/59 (82) SA 08:01:28 AO 65/42 (52) 08:19:28 AO 113/58 (82) 08:28:21 Signed By Mau Snyder MD On 10/14/2020 10:23:32 AM Mau Snyder MD
[2020-10-15 12:34] LABS: Pathologist Review Reviewed
--- NOTE | 2020-10-15 13:37 | RAD_ITS ---
STUDY: X-RAY CHEST REASON FOR EXAM: Female, 85 years old. sob TECHNIQUE: 1 view COMPARISON: 10/14/2020 FINDINGS: Still noted diffuse patchy changes involving particularly the left lung with further consolidation left lower lobe and blunting of the costophrenic angles bilaterally. Heavy markings noted in the medial aspect of the right base slightly less than seen before. Cardiac silhouette is not enlarged. There is mild scoliosis the thoracic spine convexity to the right side. RAD/Chest 1 View (Portable) IMPRESSION: Diffuse patchy changes left upper and lower lung field with heavy markings medial aspect right base there is no significant improvement since the day before. Electronically Signed: Abena Dixon, at 14:04 EDT Tel , Service support ,
--- NOTE | 2020-10-15 13:46 | PN.HOSP_ITS ---
Subjective Subjective Patient was seen and examined. She complains of feeling short of breath. She is on 3 L of oxygen. Objective Data Objective Data Vital Signs: Vital Signs Temp Pulse Resp BP Pulse Ox 98.0 F 82 20 H 99/55 L 92 10/15/20 11:26 10/15/20 11:26 10/15/20 11:26 10/15/20 11:26 10/15/20 11:26 Oxygen Flow Rate (L/min) 3 Oxygen Delivery Method Nasal Cannula Weight: 57.3 kg Body Mass Index (BMI) 23.8 Intake & Output: Intake and Output for Last 24 Hours 10/13/20 10/14/20 10/15/20 23:59 23:59 23:59 Intake Total / / / Output Total 300 / 300 200 / 200 Balance 2027. / 1711.74 / 1711.74 1793.33 / 1793.33 Lab / Micro Data Result Diagrams: 10/15/20 05:40 10/15/20 05:40 Labs: Laboratory Results - last 24 hr 10/14/20 10/14/20 10/15/20 14:30 17:35 05:40 WBC 31.7 H* RBC 4.17 L Hgb 11.8 L Hct 36.0 L MCV 86.3 MCH 28.3 MCHC 32.8 RDW Std Deviation 48.2 H RDW Coeff of Celi 15.2 H Plt Count 266 MPV 10.8 Immature Gran % (Auto) 2.300 H Neut % (Auto) 86.5 H Lymph % (Auto) 5.1 L [place] % (Auto) 5.8 Eos % (Auto) 0.0 Baso % (Auto) 0.3 Absolute Neuts (auto) 27.4 H Absolute Lymphs (auto) 1.62 Nucleated RBC % 0 Differential Comment SCANNED Diff Path Review Reviewed Sodium Potassium Chloride Carbon Dioxide Anion Gap BUN Creatinine Estim Creat Clear Calc Est GFR (MDRD) Af Amer Est GFR (MDRD) Non-Af BUN/Creatinine Ratio Glucose Calcium Urine Color Yellow Urine Clarity Clear Urine pH 5.0 Ur Specific [place] 1.010 Urine Protein 15 H Urine Glucose (UA) 50 H Urine Ketones Negative Urine Occult Blood 25 H Urine Nitrite Negative Urine Bilirubin Negative Urine Urobilinogen Normal Ur Leukocyte Esterase Negative Urine RBC 0 SEEN Urine WBC 0-5 SEEN Ur Squamous Epith Cells 0 SEEN Urine Bacteria 1+ Urine Mucus 0 SEEN COVID-19 ([place]) Not Detected 10/15/20 05:40 WBC RBC Hgb Hct MCV MCH MCHC RDW Std Deviation RDW Coeff of Celi Plt Count MPV Immature Gran % (Auto) Neut % (Auto) Lymph % (Auto) [place] % (Auto) Eos % (Auto) Baso % (Auto) Absolute Neuts (auto) Absolute Lymphs (auto) Nucleated RBC % Differential Comment Diff Path Review Sodium 139 Potassium 3.4 L Chloride 111 H Carbon Dioxide 19.0 L Anion Gap 9 BUN 23 H Creatinine 1.32 H Estim Creat Clear Calc 23.09 Est GFR (MDRD) Af Amer 49 L Est GFR (MDRD) Non-Af 41 L BUN/Creatinine Ratio 17.4 Glucose 108 H Calcium 8.1 L Urine Color Urine Clarity Urine pH Ur Specific [place] Urine Protein Urine Glucose (UA) Urine Ketones Urine Occult Blood Urine Nitrite Urine Bilirubin Urine Urobilinogen Ur Leukocyte Esterase Urine RBC Urine WBC Ur Squamous Epith Cells Urine Bacteria Urine Mucus COVID-19 ([place]) Physical Exam Narrative Physical exam: General: Alert, Oriented x3, Cooperative, in mild respiratory distress, on 3 L of oxygen HEENT: Atraumatic Oral: Moist Mucosa Neck: Supple Lungs: Diminished with crackles Cardiovascular: HS I+II, regular, no murmurs Abdomen: Bowel Sounds Present, Soft, Non Tender Extremities: Trace bilateral edema Assessment & Plan Assessment/Plan (1) Left ventricular thrombus: (2) Non-ST elevation (NSTEMI) myocardial infarction: (3) Cardiomyopathy: QUALIFIERS: Cardiomyopathy type: unspecified Qualified Code(s): I42.9 - Cardiomyopathy, unspecified PLAN: 1. Acute intractable nausea and vomiting secondary to acute gastroesophageal obstruction, unclear etiology for now, Status post EGD, continue IV PPI 2. Acute non-STEMI, Status post cardiac cath with clean coronaries Continue on aspirin, carvedilol, statins 3. Acute left ventricular thrombus, continue on apixaban 4. 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 ANIA, prerenal, creatinine slowly creeping up, lisinopril on hold, Nephrology consulted, follow-up on recommendations 6. Leukocytosis, persistent for the second day, no signs of fever, likely reactive, will continue to monitor 7. Hypoxia secondary to #4, will continue on Lasix IV Will continue on incentive spirometer 8. Hypokalemia, K 3.4, replaced Charges/Coding Visit Charges Inpatient E&M: 82374 Subs Hosp L3
--- NOTE | 2020-10-15 15:32 | PCM.CONS.R ---
Assessment & Plan Assessment/Plan (1) ANIA (acute kidney injury): PLAN: Cr on admission was normal. UA was fairly benign. has external catheter. BP is borderline. received IV contrast for CT abdomen 10/13 and diagnostic cath 10/14. subjectively urine output has decreased. she has also received IV lasix in view of fluid overload. ATN due to contrast vs cardiorenal syndrome. Bp is ok. ok for lasix for now. since she has history of bladder prolapse will check a renal US. dw hospitalist HPI Consult Data Date of Consult: 10/15/20 HPI Narrative HPI Narrative: JORDY DALTON, is a 85 F who presents to the hospital initially with difficulty swallowing. renal consulted for ANIA. events this admit include swallowing difficulty - s/p EGD ? achalasia newly diagnosed CHF with low EF, elevated troponins, LV thrombus leukocytosis worsening now baseline cr was normal. now upto 1.3. she had external catheter but this was removed this am. she tells me that she is voiding less than before. history of bladder prolapse as per her. breathing looks ok. currently on O2 via nasal cannula. breathing appears comfortable. minimal LE edema. [facility] Medical History (Updated 10/15/20 @ 15:[address] Oliver Casey MD) Abnormal electrocardiogram Anxiety Cardiomyopathy Deafness in left ear Foreign body Left ventricular thrombus Non-ST elevation (NSTEMI) myocardial infarction Presbycusis Home Medications [id number] [Centrum Silver Tablet] 1 ea PO DAILY 05/02/13 [History Last Taken 10/12/20] [id number] 2 drp EACH EAR QHS 10/12/20 [History Last Taken 10/11/20] Allergy/AdvReac Type Severity Reaction Status Date / Time perfume Allergy Shortness Verified 10/13/20 02:48 of breath seasonal Allergy Shortness Uncoded 10/13/20 02:48 of breath Family History (Updated 10/13/20 @ 02:[address] Waletr Yarbrough DO) Other GERD (gastroesophageal reflux disease) Social History Smoking Status: Never smoker ROS ROS Narrative Negative except above Physical Exam Narrative Alert awake oriented x 3 no obvious distress no pallor no icterus no JVD s1s2 no murmurs lungs rales abdomen soft no organomegaly no edema no cyanosis Lab / Micro Data Result Diagrams: 10/15/20 05:40 10/15/20 05:40 Labs: Laboratory Results - last 24 hr 10/14/20 10/14/20 10/15/20 14:30 17:35 05:40 WBC 31.7 H* RBC 4.17 L Hgb 11.8 L Hct 36.0 L MCV 86.3 MCH 28.3 MCHC 32.8 RDW Std Deviation 48.2 H RDW Coeff of Celi 15.2 H Plt Count 266 MPV 10.8 Immature Gran % (Auto) 2.300 H Neut % (Auto) 86.5 H Lymph % (Auto) 5.[address] [place] % (Auto) 5.8 Eos % (Auto) 0.0 Baso % (Auto) 0.3 Absolute Neuts (auto) 27.4 H Absolute Lymphs (auto) 1.62 Nucleated RBC % 0 Differential Comment SCANNED Diff Path Review Reviewed Sodium Potassium Chloride Carbon Dioxide Anion Gap BUN Creatinine Estim Creat Clear Calc Est GFR (MDRD) Af Amer Est GFR (MDRD) Non-Af BUN/Creatinine Ratio Glucose Calcium Urine Color Yellow Urine Clarity Clear Urine pH 5.0 Ur Specific [place] 1.010 Urine Protein 15 H Urine Glucose (UA) 50 H Urine Ketones Negative Urine Occult Blood 25 H Urine Nitrite Negative Urine Bilirubin Negative Urine Urobilinogen Normal Ur Leukocyte Esterase Negative Urine RBC 0 SEEN Urine WBC 0-5 SEEN Ur Squamous Epith Cells 0 SEEN Urine Bacteria 1+ Urine Mucus 0 SEEN COVID-19 ([place]) Not Detected 10/15/20 05:40 WBC RBC Hgb Hct MCV MCH MCHC RDW Std Deviation RDW Coeff of Celi Plt Count MPV Immature Gran % (Auto) Neut % (Auto) Lymph % (Auto) [place] % (Auto) Eos % (Auto) Baso % (Auto) Absolute Neuts (auto) Absolute Lymphs (auto) Nucleated RBC % Differential Comment Diff Path Review Sodium 139 Potassium 3.4 L Chloride 111 H Carbon Dioxide 19.0 L Anion Gap 9 BUN 23 H Creatinine 1.32 H Estim Creat Clear Calc 23.09 Est GFR (MDRD) Af Amer 49 L Est GFR (MDRD) Non-Af 41 L BUN/Creatinine Ratio 17.4 Glucose 108 H Calcium 8.1 L Urine Color Urine Clarity Urine pH Ur Specific [place] Urine Protein Urine Glucose (UA) Urine Ketones Urine Occult Blood Urine Nitrite Urine Bilirubin Urine Urobilinogen Ur Leukocyte Esterase Urine RBC Urine WBC Ur Squamous Epith Cells Urine Bacteria Urine Mucus COVID-19 ([place]) Radiology Impression Chest X-Ray 10/15/20 13:37 IMPRESSION: Diffuse patchy changes left upper and lower lung field with heavy markings medial aspect right base there is no significant improvement since the day before. Electronically Signed: Abena Dixon, at 14:04 EDT Tel , Service support ,
[2020-10-15] MEDS: Furosemide 20 MG/2 ML VIAL IV (17:16)
[2020-10-15 18:19] LABS: Procalcitonin 1.93 ng/mL (0.00-0.09)
[2020-10-15] MEDS: Ipratropium/Albuterol Sulfate 3 ML AMPUL.NEB INHALATION (19:26)
[2020-10-15] MEDS: Atorvastatin Calcium 40 MG Tablet PO (22:02)
[2020-10-16] VITALS (13 sets, daily range): BP systolic 114–124; BP diastolic 38–61; PULSE 85–96; RESP 16–24; TEMP 36.6–37.5; O2SAT 89–94
[2020-10-16] MEDS: Ipratropium/Albuterol Sulfate 3 ML AMPUL.NEB INHALATION ×4 (06:49→18:33)
--- NOTE | 2020-10-16 07:48 | PN.CARD_ITS ---
Subjective Subjective The patient is awake and alert. She believes her breathing as improved since yesterday. Objective Data Vital Signs: Vital Signs Temp Pulse Resp BP Pulse Ox 99.5 F H 92 20 H 124/50 H 94 10/16/20 04:00 10/16/20 04:00 10/16/20 04:00 10/16/20 04:00 10/16/20 04:00 Oxygen Flow Rate (L/min) 2 Oxygen Delivery Method Nasal Cannula Weight: 126 lb 5.198 oz Body Mass Index (BMI) 23.8 Intake & Output: Intake and Output for Last 24 Hours 10/14/20 10/15/20 10/16/20 23:59 23:59 23:59 Intake Total 2010.74 / 2010.74 2446.58 / 2446.58 120 / 120 Output Total 300 / 300 700 / 700 400 / 400 Balance 1711.74 / 1711.74 1746.58 / 1746.58 -280 / -280 Lab / Micro Data Result Diagrams: 10/15/20 05:40 10/15/20 05:40 Labs: Laboratory Results - last 24 hr 10/15/20 10/15/20 05:40 17:15 Diff Path Review Reviewed Procalcitonin 1.93 H Cardiology Labs/Tests Rhythm: sinus rhythm; an episode appearing c/w an ectopic atrial rhythm with aberrancy Radiography Diagnostic Testing: Radiology Impression Chest X-Ray 10/15/20 13:37 IMPRESSION: Diffuse patchy changes left upper and lower lung field with heavy markings medial aspect right base there is no significant improvement since the day before. Electronically Signed: Abena Dixon, at 14:04 EDT Tel , Service support , Physical Exam Const alert and oriented x3 Orientation / Consciousness: awake HEENT normocephalic, head/scalp atraumatic and hearing grossly normal bilaterally Eyes PERRL, EOMs intact bilaterally, conjunctivae normal and no scleral icterus Neck full ROM and supple Chest inspection of chest normal Resp normal respiratory effort Resp Narrative: improved c/w the previous examination Auscultation: rales bilateral base and mid Cardio regular rate, regular rhythm, S1 normal heart sound and S2 normal heart sound Cardio Narrative: occastional ectopic beats GI normal to inspection, nondistended, normoactive bowel sounds Extremity no pedal edema Skin no rashes or lesions noted Neuro oriented x3, CN's II-XII intact bilaterally and moves all extremities Psych mental status grossly normal Assessment & Plan Assessment/Plan (1) Non-ST elevation (NSTEMI) myocardial infarction: PLAN: The patient presents with signs and symptoms and objective findings compatible with a non-ST segment elevation [place]. The patient has undergone further evaluation with diagnostic cardiac catheterization. Based upon the findings she did not have angiographically significant CAD to explain her non-ST segment elevation NV or her left ventricular regional wall motion abnormalities/diminished LV systolic function. Thus it appears at this time her findings may be compatible with a stress- induced cardiomyopathy/Takotsubo syndrome. She will need to continue medical management and follow-up. (2) Cardiomyopathy: QUALIFIERS: Cardiomyopathy type: unspecified Qualified Code(s): I42.9 - Cardiomyopathy, unspecified PLAN: The patient does have findings compatible with an underlying cardiomyopathy. Based upon her cardiac catheterization findings there is concern that her cardiomyopathy is related to an underlying stress-induced/Takotsubo syndrome. She will continue medical therapy which will include beta-blockers and afterload reducing agents as tolerated. Her respiratory status appears improved. She will need to continue medical therapy including diuretic therapy with adjustment as needed. Over time she will need follow-up with echocardiographic studies to monitor her left ventricular wall motion and systolic function. (3) Left ventricular thrombus: PLAN: The patient's left ventricular wall motion and systolic function was assessed with a transthoracic echocardiogram. During this evaluation she was found to have findings compatible with a left ventricular apical thrombus. This could be secondary to her left ventricular wall motion abnormalities and diminished LV systolic function. At the moment she will need to continue to be monitored. She will initiate medical therapy which will include anticoagulant therapy. (4) Abnormal electrocardiogram: PLAN: She does have an abnormal electrocardiogram with findings of an underlying left bundle branch block pattern. This could be related to a non-CAD cardiomyopathy. She will continue evaluation and care as noted above. Addt'l Comments This note was generated using a voice recognition system and there may be incorrect words, spelling or punctuation that were not noted when reviewing the office note prior to saving.
[2020-10-16 08:43] LABS: Absolute Lymphocyte Count 1.87 X10^3/uL (0.83-4.51); Absolute Neutrophil Count 20.6 X10^3/uL (2.0-7.7); Basophil# 0.04 X10^3/uL; Basophil% 0.2 % (0-1); Eosinophil# 0.01 X10^3/uL; Hematocrit 33.7 % (37-47); Hemoglobin 11.3 g/dL (12.0-15.0); Lymphocyte # 1.87 X10^3/ul (0.83-4.51); Lymphocyte % 7.6 % (19-41); Mean Corp Hgb Conc 33.5 g/dL (32-36); Mean Corpuscular Hgb 28.4 pg (27.0-32.0); Mean Corpuscular Volume 84.7 fL (81-99); Monocyte# 1.73 X10^3/uL; Monocyte% 7.1 % (0-10); NRBC Flagged by Analyzer 0 % (0-5); Neutrophil # 20.59 X10^3/uL (2.7-7.7); Neutrophil % 84.2 % (47-70); POSITIVE DIFFERENTIAL YES; Platelet Count 269 K/mm3 (150-450); RBC Distribution Width CV 15.2 % (11.6-14.6); RBC Distribution Width SD 46.5 fl (35.1-43.9); Red Blood Count 3.98 M/mm3 (4.2-5.4); White Blood Count 24.5 K/mm3 (4.4-11.0)
[2020-10-16 08:46] LABS: Differential Indicated SCAN CRITERIA MET
[2020-10-16 08:56] LABS: ALB/GLOB Ratio 0.5 RATIO (0.9-2.4); AST(SGOT) 79 U/L (15-37); Alanine Aminotransfer ALT/SGPT 101 U/L (13-56); Alkaline Phosphatase 73 U/L (45-117); Anion Gap 7 (5-15); BUN 25 mg/dL (7-18); BUN/Creat Ratio 16.6 RATIO (10-20); Chloride 108 mmol/L (98-107); Creatinine, Serum 1.51 mg/dL (0.55-1.02); EST Glomerular Filtration Rate 35 mL/min (>60); Est Glom Filt Rate - Afr Amer 42 mL/min (>60); Estimated Creatinine Clearance 20.18 ml/min; Globulin 4.1 g/dL (2.2-4.2); Glucose 109 mg/dL (74-106); Potassium 3.6 mmol/L (3.5-5.1); Protein, Total 6.1 g/dL (6.4-8.2); Sodium Level 137 mmol/L (136-145)
[2020-10-16] MEDS: Multivitamins,Ther W-Minerals Tablet 1 TABLET PO (09:25)
[2020-10-16] MEDS: Lisinopril 2.5 MG Tablet PO (09:25)
[2020-10-16] MEDS: Aspirin 81 MG TAB.CHEW PO (09:25)
[2020-10-16] MEDS: Furosemide 40 MG Tablet PO ×2 (09:25→09:26)
[2020-10-16] MEDS: Carvedilol 6.25 MG Tablet PO ×2 (09:25→21:06)
[2020-10-16] MEDS: APIXABAN 2.5 MG TABLET PO ×2 (09:26→21:06)
[2020-10-16] MEDS: Furosemide 20 MG/2 ML VIAL IV (11:26)
--- NOTE | 2020-10-16 11:50 | CASEMGMT ---
Addendum entered by Jesusita Rodarte 10/16/20 12:05: Script for OP therapy faxed to [facility] at this time. given [facility] rac card w/contact information and he was made aware to contact them to set up appts/check on financial coverage. Script was also faxed to [facility]. Original Note: SHEN BERRY NOTE PT/OT recommend additional therapy and walker. SHEN BERRY to room. Pt sitting up in recliner chair. @ bedside. They were made aware of recommendations. They were also made aware pt may qualify for Home O2 @ discharge. They are agreeable to walker. They were provided with list of DME providers consistent with the patient's preferred geographic region, medical needs, and insurance network. [place] [facility] [place] [facility] and they will deliver walker today. Pt/ made aware d/t pt not being established w/PCP, HHC can not be set-up. Discussed option of OP therapy. Pt is agreeable to OP therapy. They were made aware they can go to OP therapy location of their choice and pt states most likely would go to [place]. Will obtain script and give to pt when available. They were also made aware, once established w/PCP, if they are interested in pt doing HHC instead, to discuss options w/PCP. They voice understanding. Discussed CCN w/pt and . They are agreeable. CCN order placed and referral made. Call placed to Lucius @ [facility] and she was notified of referral. Pt/ made aware pt will be discharging home on Eliquis. They were given Eliquis 30-day savings card and instructed on use. Made aware to f/u with PCP or director of tax services if refills are not affordable. Green sheet placed on chart w/instructions for Home O2 set-up, if pt qualifies for O2 @ discharge. Laura BURLESON RN, CM
--- NOTE | 2020-10-16 13:28 | PN.HOSP_ITS ---
Subjective Subjective Patient was seen and examined. Complains of shortness of breath. She was of oxygen momentarily yesterday. Currently on 3 L of oxygen. Denied chest pain or dizziness. Objective Data Objective Data Vital Signs: Vital Signs Temp Pulse Resp BP Pulse Ox 99.1 F 87 24 H 120/61 93 10/16/20 09:21 10/16/20 11:03 10/16/20 11:03 10/16/20 09:21 10/16/20 09:21 Oxygen Flow Rate (L/min) 3 Oxygen Delivery Method Nasal Cannula Weight: 57.3 kg Body Mass Index (BMI) 23.8 Intake & Output: Intake and Output for Last 24 Hours 10/14/20 10/15/20 10/16/20 23:59 23:59 23:59 Intake Total 2010.74 / 2010.74 2446.58 / 2446.58 230 / 230 Output Total 300 / 300 700 / 700 400 / 400 Balance 1711.74 / 1711.74 1746.58 / 1746.58 -170 / -170 Lab / Micro Data Result Diagrams: 10/16/20 08:05 10/16/20 08:05 Labs: Laboratory Results - last 24 hr 10/15/20 10/16/20 10/16/20 17:15 08:05 08:05 WBC 24.5 H RBC 3.98 L Hgb 11.3 L Hct 33.7 L MCV 84.7 MCH 28.4 MCHC 33.5 RDW Std Deviation 46.5 H RDW Coeff of Celi 15.2 H Plt Count 269 MPV 11.0 Immature Gran % (Auto) 0.900 Neut % (Auto) 84.2 H Lymph % (Auto) 7.6 L [place] % (Auto) 7.1 Eos % (Auto) 0.0 Baso % (Auto) 0.2 Absolute Neuts (auto) 20.6 H Absolute Lymphs (auto) 1.87 Nucleated RBC % 0 Differential Comment COMMENT Diff Path Review May foll Sodium 137 Potassium 3.6 Chloride 108 H Carbon Dioxide 22.0 Anion Gap 7 BUN 25 H Creatinine 1.51 H Estim Creat Clear Calc 20.18 Est GFR (MDRD) Af Amer 42 L Est GFR (MDRD) Non-Af 35 L BUN/Creatinine Ratio 16.6 Glucose 109 H Calcium 8.0 L Total Bilirubin 1.20 H AST 79 H ALT 101 H Alkaline Phosphatase 73 Total Protein 6.1 L Albumin 2.0 L Globulin 4.1 Albumin/Globulin Ratio 0.5 L Procalcitonin 1.93 H Micro: Microbiology 10/14/20 17:35 Urine, Clean Catch Urine Culture - Final Mixed Gram Positive Organisms Radiography Diagnostic Testing: Radiology Impression Chest X-Ray 10/15/20 13:37 IMPRESSION: Diffuse patchy changes left upper and lower lung field with heavy markings medial aspect right base there is no significant improvement since the day before. Electronically Signed: Abena Dixon, at 14:04 EDT Tel , Service support , Physical Exam Narrative Physical exam: General: Alert, Oriented x3, Cooperative, in mild respiratory distress, on 3 L of oxygen HEENT: Atraumatic Oral: Moist Mucosa Neck: Supple Lungs: Diminished with crackles Cardiovascular: HS I+II, regular, no murmurs Abdomen: Bowel Sounds Present, Soft, Non Tender Extremities: Trace bilateral edema Assessment & Plan Assessment/Plan (1) Left ventricular thrombus: (2) Non-ST elevation (NSTEMI) myocardial infarction: (3) Cardiomyopathy: QUALIFIERS: Cardiomyopathy type: unspecified Qualified Code(s): I42.9 - Cardiomyopathy, unspecified PLAN: 1. Acute intractable nausea and vomiting secondary to acute gastroesophageal obstruction, resolved Status post EGD, continue on mechanical soft diet, switch to p.o. PPI twice daily 2. Acute non-STEMI, Status post cardiac cath with clean coronaries Continue on aspirin, carvedilol, statins 3. Acute left ventricular thrombus, continue on apixaban 4. 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 ANIA, prerenal, creatinine worsening, currently 1.52 Lisinopril on hold, Nephrology consulted, follow-up on recommendations 6. Leukocytosis, improving, currently 24.5 No signs of fever, likely reactive, Will continue to monitor 7. Hypoxia secondary to #4, concerning for possible aspiration pneumonitis vs Acute CHF Will continue on incentive spirometer 8. Hypokalemia, K 3.4, replaced Charges/Coding Visit Charges Inpatient E&M: 57796 Subs Hosp L2
--- NOTE | 2020-10-16 17:17 | CASEMGMT ---
RN CM NOTE: Notified that [facility] did not deliver FWW to pt's room today. Script for FWW placed on chart w/green sheet w/instructions to have it delivered if pt discharges home over the w/e. Laura CERVANTESN SHEN CM
--- NOTE | 2020-10-16 17:22 | PCM.PN.REN ---
Subjective Subjective no new complaints Objective Data Objective Data Vital Signs: Vital Signs Temp Pulse Resp BP Pulse Ox 97.9 F 91 18 114/38 L 93 10/16/20 15:27 10/16/20 15:27 10/16/20 15:27 10/16/20 15:27 10/16/20 15:27 Oxygen Flow Rate (L/min) 3 Oxygen Delivery Method Nasal Cannula Weight: 57.3 kg Body Mass Index (BMI) 23.8 Intake & Output: Intake and Output for Last 24 Hours 10/14/20 10/15/20 10/16/20 23:59 23:59 23:59 Intake Total 2010.74 / 2010.74 2446.58 / 2446.58 342 / 342 Output Total 300 / 300 700 / 700 400 / 400 Balance 1711.74 / 1711.74 1746.58 / 1746.58 -58 / -58 Lab / Micro Data Result Diagrams: 10/16/20 08:05 10/16/20 08:05 Labs: Laboratory Results - last 24 hr 10/15/20 10/16/20 10/16/20 17:15 08:05 08:05 WBC 24.5 H RBC 3.98 L Hgb 11.3 L Hct 33.7 L MCV 84.7 MCH 28.4 MCHC 33.5 RDW Std Deviation 46.5 H RDW Coeff of Celi 15.2 H Plt Count 269 MPV 11.0 Immature Gran % (Auto) 0.900 Neut % (Auto) 84.2 H Lymph % (Auto) 7.6 L [place] % (Auto) 7.1 Eos % (Auto) 0.0 Baso % (Auto) 0.2 Absolute Neuts (auto) 20.6 H Absolute Lymphs (auto) 1.87 Nucleated RBC % 0 Differential Comment COMMENT Diff Path Review May foll Sodium 137 Potassium 3.6 Chloride 108 H Carbon Dioxide 22.0 Anion Gap 7 BUN 25 H Creatinine 1.51 H Estim Creat Clear Calc 20.18 Est GFR (MDRD) Af Amer 42 L Est GFR (MDRD) Non-Af 35 L BUN/Creatinine Ratio 16.6 Glucose 109 H Calcium 8.0 L Total Bilirubin 1.20 H AST 79 H ALT 101 H Alkaline Phosphatase 73 Total Protein 6.1 L Albumin 2.0 L Globulin 4.1 Albumin/Globulin Ratio 0.5 L Procalcitonin 1.93 H Micro: Microbiology 06/23/21 17:35 Urine, Clean Catch Urine Culture - Final Mixed Gram Positive Organisms Radiography Diagnostic Testing: Radiology Impression Barium Swallow X-Ray 10/13/20 09:00 IMPRESSION: Complete obstruction of the EG junction with retained food in the distal esophagus. Electronically Signed: Abena Dixon, at 9:38 EDT Tel , Service support , ADDENDUM: 10/16/20 161 Physical Exam Narrative Alert awake oriented x 3 no obvious distress no pallor no icterus no JVD s1s2 no murmurs lungs rales abdomen soft no organomegaly no edema no cyanosis Assessment & Plan Assessment/Plan (1) ANIA (acute kidney injury): PLAN: Cr on admission was normal. UA was fairly benign. has external catheter. BP is borderline. received IV contrast for CT abdomen 10/13 and diagnostic cath 10/14. subjectively urine output has decreased. she has also received IV lasix in view of fluid overload. ATN due to contrast vs cardiorenal syndrome. Bp is ok. ok for lasix for now. since she has history of bladder prolapse. dw hospitalist
[2020-10-16] MEDS: Pantoprazole Sodium 40 MG Tablet PO (21:06)
[2020-10-16] MEDS: Atorvastatin Calcium 40 MG Tablet PO (21:06)
[2020-10-17] VITALS (16 sets, daily range): BP systolic 110–124; BP diastolic 50–63; PULSE 78–96; RESP 18–24; TEMP 36.1–37.7; O2SAT 92–94
[2020-10-17 06:21] LABS: Absolute Lymphocyte Count 1.69 X10^3/uL (0.83-4.51); Absolute Neutrophil Count 15.5 X10^3/uL (2.0-7.7); Basophil# 0.04 X10^3/uL; Basophil% 0.2 % (0-1); Eosinophil# 0.06 X10^3/uL; Eosinophils% 0.3 % (0-5); Hematocrit 31.3 % (37-47); Hemoglobin 10.6 g/dL (12.0-15.0); Lymphocyte # 1.69 X10^3/ul (0.83-4.51); Lymphocyte % 8.8 % (19-41); Mean Corp Hgb Conc 33.9 g/dL (32-36); Mean Corpuscular Hgb 28.4 pg (27.0-32.0); Mean Corpuscular Volume 83.9 fL (81-99); Mean Platelet Vol. 11.1 fl (6.2-12.0); Monocyte# 1.64 X10^3/uL; Monocyte% 8.5 % (0-10); NRBC Flagged by Analyzer 0 % (0-5); Neutrophil # 15.51 X10^3/uL (2.7-7.7); Neutrophil % 80.8 % (47-70); POSITIVE DIFFERENTIAL YES; Platelet Count 243 K/mm3 (150-450); RBC Distribution Width SD 45.7 fl (35.1-43.9); Red Blood Count 3.73 M/mm3 (4.2-5.4); White Blood Count 19.2 K/mm3 (4.4-11.0)
[2020-10-17 06:24] LABS: Differential Indicated SCAN CRITERIA MET
[2020-10-17 06:34] LABS: Differential Comment SCANNED
[2020-10-17 06:58] LABS: ALB/GLOB Ratio 0.5 RATIO (0.9-2.4); AST(SGOT) 49 U/L (15-37); Alanine Aminotransfer ALT/SGPT 66 U/L (13-56); Albumin, Serum 1.8 g/dL (3.2-5.0); Alkaline Phosphatase 75 U/L (45-117); Anion Gap 6 (5-15); BUN 29 mg/dL (7-18); BUN/Creat Ratio 17.4 RATIO (10-20); Calcium,Total 7.7 mg/dL (8.5-10.1); Chloride 105 mmol/L (98-107); Creatinine, Serum 1.67 mg/dL (0.55-1.02); EST Glomerular Filtration Rate 31 mL/min (>60); Est Glom Filt Rate - Afr Amer 37 mL/min (>60); Estimated Creatinine Clearance 18.25 ml/min; Globulin 3.9 g/dL (2.2-4.2); Glucose 117 mg/dL (74-106); Potassium 3.2 mmol/L (3.5-5.1); Protein, Total 5.7 g/dL (6.4-8.2); Sodium Level 137 mmol/L (136-145)
[2020-10-17] MEDS: Ipratropium/Albuterol Sulfate 3 ML AMPUL.NEB INHALATION ×4 (07:21→20:10)
[2020-10-17 08:16] LABS: Magnesium 2.2 mg/dL (1.6-2.6)
[2020-10-17] MEDS: Potassium Chloride Oral Tablet 20 MEQ 40 MEQ PO (08:22)
[2020-10-17] MEDS: Multivitamins,Ther W-Minerals Tablet 1 TABLET PO (08:23)
[2020-10-17] MEDS: Aspirin 81 MG TAB.CHEW PO (08:23)
--- NOTE | 2020-10-17 10:35 | PN.CARD_ITS ---
Subjective Subjective Patient seen and evaluated at bedside, at bedside at time of evaluation and also discussed with the medical team Still having symptoms of shortness of breath, no symptoms of dizziness no chest pain. Objective Data Vital Signs: Vital Signs Temp Pulse Resp BP Pulse Ox 98.4 F 89 18 110/50 L 92 10/17/20 03:15 10/17/20 07:21 10/17/20 07:21 10/17/20 03:15 10/17/20 07:21 Oxygen Flow Rate (L/min) 2.5 Oxygen Delivery Method Nasal Cannula Weight: 126 lb 5.198 oz Body Mass Index (BMI) 23.8 Intake & Output: Intake and Output for Last 24 Hours 10/15/20 10/16/20 10/17/20 23:59 23:59 23:59 Intake Total 2446.58 / 2446.58 454 / 504 50 / 50 Output Total 700 / 700 400 / 400 Balance 1746.58 / 1746.58 54 / 104 50 / 50 Lab / Micro Data Result Diagrams: 10/17/20 05:48 10/17/20 05:48 Labs: Laboratory Results - last 24 hr 10/17/20 10/17/20 10/17/20 05:48 05:48 05:48 WBC 19.2 H RBC 3.73 L Hgb 10.6 L Hct 31.3 L MCV 83.9 MCH 28.4 MCHC 33.9 RDW Std Deviation 45.7 H RDW Coeff of Celi 15.0 H Plt Count 243 MPV 11.1 Immature Gran % (Auto) 1.400 H Neut % (Auto) 80.8 H Lymph % (Auto) 8.8 L [place] % (Auto) 8.5 Eos % (Auto) 0.3 Baso % (Auto) 0.2 Absolute Neuts (auto) 15.5 H Absolute Lymphs (auto) 1.69 Nucleated RBC % 0 Differential Comment SCANNED Diff Path Review May foll Sodium 137 Potassium 3.2 L Chloride 105 Carbon Dioxide 26.0 Anion Gap 6 BUN 29 H Creatinine 1.67 H Estim Creat Clear Calc 18.25 Est GFR (MDRD) Af Amer 37 L Est GFR (MDRD) Non-Af 31 L BUN/Creatinine Ratio 17.4 Glucose 117 H Calcium 7.7 L Magnesium 2.2 Total Bilirubin 0.90 AST 49 H ALT 66 H Alkaline Phosphatase 75 Total Protein 5.7 L Albumin 1.8 L Globulin 3.9 Albumin/Globulin Ratio 0.5 L Micro: Microbiology 10/14/20 17:35 Urine, Clean Catch Urine Culture - Final Mixed Gram Positive Organisms Cardiology Labs/Tests 10/17/20 05:48: WBC 19.2 H, RBC 3.73 L, Hgb 10.6 L, Hct 31.3 L, MCV 83.9, MCH 28.4, MCHC 33.9, Plt Count 243, MPV 11.1, Immature Gran % (Auto) 1.400 H, Neut % (Auto) 80.8 H, Lymph % (Auto) 8.8 L, [place] % (Auto) 8.5, Eos % (Auto) 0.3, Baso % (Auto) 0.2, Absolute Neuts (auto) 15.5 H, Nucleated RBC % 0 10/17/20 05:48: Sodium 137, Potassium 3.2 L, Chloride 105, Carbon Dioxide 26.0, Anion Gap 6, BUN 29 H, Creatinine 1.67 H, Est GFR (MDRD) Af Amer 37 L, Est GFR (MDRD) Non-Af 31 L, BUN/Creatinine Ratio 17.4, Glucose 117 H, Calcium 7.7 L, Total Bilirubin 0.90 10/17/20 05:48: Magnesium 2.2 Rhythm: Normal sinus rhythm EKG: Left axis, left bundle branch block, normal sinus ECHO: Severe LV systolic dysfunction with ejection fraction of 30%, mild MR with mild TR, 1 cm time 1 cm apical/LV thrombus Cardiac Cath: Luminal Yudy Allergy of the LAD, left circumflex RCA normal : Radiography Diagnostic Testing: Radiology Impression Barium Swallow X-Ray 10/13/20 09:00 IMPRESSION: Complete obstruction of the EG junction with retained food in the distal esophagus. 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 tach or significant ventricular dysrhythmia. Recommendation plan; 1. I discussed the cardiac care plan in detail with the medical team 2. Patient had elevated creatinine to 1.5 and lisinopril is on hold low-dose Lasix Also patient has a leukocytosis and currently on antibiotic treatment On physical exam today she had still bilateral basilar rales, very minimal lower extremity edema 3. From cardiac standpoint no further input to continue medication and to follow-up with the primary school childcare attendant Dr. Busch spinal 4. We will be available if any further cardiac need (2) Non-ST elevation (NSTEMI) myocardial infarction: (3) Cardiomyopathy: QUALIFIERS: Cardiomyopathy type: unspecified Qualified Code(s): I42.9 - Cardiomyopathy, unspecified (4) ANIA (acute kidney injury): (5) Abnormal electrocardiogram:
[2020-10-17] MEDS: Furosemide 20 MG Tablet PO (10:56)
[2020-10-17] MEDS: Pantoprazole Sodium 40 MG Tablet PO ×2 (10:56→21:17)
[2020-10-17] MEDS: APIXABAN 2.5 MG TABLET PO ×2 (10:56→21:17)
[2020-10-17] MEDS: Carvedilol 6.25 MG Tablet PO ×2 (10:57→21:17)
--- NOTE | 2020-10-17 14:38 | PCM.PN.HOSP ---
Subjective Subjective Patient was seen and examined. She feels improved. She is on 1 L of oxygen. Denied any new complaints. Objective Data Objective Data Vital Signs: Vital Signs Temp Pulse Resp BP Pulse Ox 97.0 F L 86 18 117/54 L 93 10/17/20 14:33 10/17/20 14:33 10/17/20 14:33 10/17/20 14:33 10/17/20 14:33 Oxygen Flow Rate (L/min) 1 Oxygen Delivery Method Nasal Cannula Weight: 57.3 kg Body Mass Index (BMI) 23.8 Intake & Output: Intake and Output for Last 24 Hours 10/15/20 10/16/20 10/17/20 23:59 23:59 23:59 Intake Total 2446.58 / 2446.58 454 / 504 712 / 712 Output Total 700 / 700 400 / 400 Balance 1746.58 / 1746.58 54 / 104 712 / 712 Lab / Micro Data Result Diagrams: 10/17/20 05:48 10/17/20 05:48 Labs: Laboratory Results - last 24 hr 10/17/20 10/17/20 10/17/20 05:48 05:48 05:48 WBC 19.2 H RBC 3.73 L Hgb 10.6 L Hct 31.3 L MCV 83.9 MCH 28.4 MCHC 33.9 RDW Std Deviation 45.7 H RDW Coeff of Celi 15.0 H Plt Count 243 MPV 11.1 Immature Gran % (Auto) 1.400 H Neut % (Auto) 80.8 H Lymph % (Auto) 8.8 L [place] % (Auto) 8.5 Eos % (Auto) 0.3 Baso % (Auto) 0.2 Absolute Neuts (auto) 15.5 H Absolute Lymphs (auto) 1.69 Nucleated RBC % 0 Differential Comment SCANNED Diff Path Review May foll Sodium 137 Potassium 3.2 L Chloride 105 Carbon Dioxide 26.0 Anion Gap 6 BUN 29 H Creatinine 1.67 H Estim Creat Clear Calc 18.25 Est GFR (MDRD) Af Amer 37 L Est GFR (MDRD) Non-Af 31 L BUN/Creatinine Ratio 17.4 Glucose 117 H Calcium 7.7 L Magnesium 2.2 Total Bilirubin 0.90 AST 49 H ALT 66 H Alkaline Phosphatase 75 Total Protein 5.7 L Albumin 1.8 L Globulin 3.9 Albumin/Globulin Ratio 0.5 L Micro: Microbiology 10/14/20 17:35 Urine, Clean Catch Urine Culture - Final Mixed Gram Positive Organisms Radiography Diagnostic Testing: Radiology Impression Barium Swallow X-Ray 10/13/20 09:00 IMPRESSION: Complete obstruction of the EG junction with retained food in the distal esophagus. Electronically Signed: Abena Dixon, at 9:38 EDT Tel , Service support , ADDENDUM: 10/16/20 1610 Physical Exam Narrative Physical exam: General: Alert, Oriented x3, Cooperative, in mild respiratory distress, on 3 L of oxygen HEENT: Atraumatic Oral: Moist Mucosa Neck: Supple Lungs: Diminished with crackles Cardiovascular: HS I+II, regular, no murmurs Abdomen: Bowel Sounds Present, Soft, Non Tender Extremities: Trace bilateral edema Eyes Eyes Narrative: No scleral icterus Skin Skin Narrative: Patient has some small patch of dry skin underneath her left eye. Psych mental status grossly normal and affect normal Assessment & Plan Assessment/Plan (1) Left ventricular thrombus: (2) Non-ST elevation (NSTEMI) myocardial infarction: (3) Cardiomyopathy: QUALIFIERS: Cardiomyopathy type: unspecified Qualified Code(s): I42.9 - Cardiomyopathy, unspecified PLAN: 1. Acute intractable nausea and vomiting secondary to acute gastroesophageal obstruction, resolved Status post EGD, continue on mechanical soft diet, switch to p.o. PPI twice daily 2. Acute non-STEMI, Status post cardiac cath with clean coronaries Continue on aspirin, carvedilol, statins 3. Acute left ventricular thrombus, continue on apixaban 4. 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 ANIA, prerenal, creatinine worsening, currently 1.52 Lisinopril on hold, Nephrology consulted, follow-up on recommendations 6. Leukocytosis, improving, currently 19.2 No signs of fever, likely reactive, Will continue to monitor 7. Hypoxia secondary to #4, concerning for possible aspiration pneumonitis vs Acute CHF Continue on incentive spirometer 8. Hypokalemia, K 3.2, replaced Charges/Coding Visit Charges Inpatient E&M: 77348 Subs Hosp L2
[2020-10-17] MEDS: Acetaminophen 650 MG Suppository RC (19:42)
[2020-10-17] MEDS: Atorvastatin Calcium 40 MG Tablet PO (21:17)
[2020-10-18] VITALS (15 sets, daily range): BP systolic 106–136; BP diastolic 48–68; PULSE 75–94; RESP 16–20; TEMP 36.9–37.7; O2SAT 90–93
[2020-10-18 05:48] LABS: Absolute Lymphocyte Count 1.85 X10^3/uL (0.83-4.51); Absolute Neutrophil Count 12.3 X10^3/uL (2.0-7.7); Basophil# 0.03 X10^3/uL; Basophil% 0.2 % (0-1); Eosinophil# 0.64 X10^3/uL; Eosinophils% 3.8 % (0-5); Hematocrit 31.4 % (37-47); Hemoglobin 10.5 g/dL (12.0-15.0); Lymphocyte # 1.85 X10^3/ul (0.83-4.51); Mean Corp Hgb Conc 33.4 g/dL (32-36); Mean Corpuscular Hgb 28.2 pg (27.0-32.0); Mean Corpuscular Volume 84.2 fL (81-99); Mean Platelet Vol. 10.9 fl (6.2-12.0); Monocyte# 1.72 X10^3/uL; Monocyte% 10.3 % (0-10); NRBC Flagged by Analyzer 0 % (0-5); Neutrophil # 12.34 X10^3/uL (2.7-7.7); Neutrophil % 73.5 % (47-70); POSITIVE DIFFERENTIAL YES; Platelet Count 267 K/mm3 (150-450); RBC Distribution Width CV 14.9 % (11.6-14.6); RBC Distribution Width SD 46.5 fl (35.1-43.9); Red Blood Count 3.73 M/mm3 (4.2-5.4); White Blood Count 16.8 K/mm3 (4.4-11.0)
[2020-10-18 06:06] LABS: Differential Indicated SCAN CRITERIA MET
[2020-10-18 06:21] LABS: ALB/GLOB Ratio 0.4 RATIO (0.9-2.4); AST(SGOT) 45 U/L (15-37); Alanine Aminotransfer ALT/SGPT 57 U/L (13-56); Albumin, Serum 1.7 g/dL (3.2-5.0); Alkaline Phosphatase 83 U/L (45-117); Anion Gap 8 (5-15); BUN 30 mg/dL (7-18); BUN/Creat Ratio 18.3 RATIO (10-20); Calcium,Total 7.8 mg/dL (8.5-10.1); Chloride 107 mmol/L (98-107); Creatinine, Serum 1.64 mg/dL (0.55-1.02); EST Glomerular Filtration Rate 32 mL/min (>60); Est Glom Filt Rate - Afr Amer 38 mL/min (>60); Estimated Creatinine Clearance 18.58 ml/min; Globulin 4.3 g/dL (2.2-4.2); Glucose 103 mg/dL (74-106); Potassium 3.6 mmol/L (3.5-5.1); Sodium Level 138 mmol/L (136-145)
[2020-10-18] MEDS: Ipratropium/Albuterol Sulfate 3 ML AMPUL.NEB INHALATION ×3 (06:58→20:27)
[2020-10-18] MEDS: Multivitamins,Ther W-Minerals Tablet 1 TABLET PO (07:50)
[2020-10-18] MEDS: Aspirin 81 MG TAB.CHEW PO (07:50)
[2020-10-18] MEDS: Carvedilol 6.25 MG Tablet PO ×2 (09:09→21:16)
[2020-10-18] MEDS: Pantoprazole Sodium 40 MG Tablet PO ×2 (09:09→21:16)
[2020-10-18] MEDS: APIXABAN 2.5 MG TABLET PO ×2 (09:10→21:16)
[2020-10-18] MEDS: Fluticasone 0.05% 1 SPRAY NASAL.SRY 2 SPRAY NASAL (10:14)
[2020-10-18] MEDS: NYSTATIN 500,000 UNIT/5 ML UDC 500000 UNIT PO ×4 (10:15→21:16)
[2020-10-18] MEDS: Furosemide 20 MG Tablet PO (10:15)
--- NOTE | 2020-10-18 11:17 | PN.CARD_ITS ---
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 showed underlying atrial fibrillation with better controlled ventricular rate on the current treatment Objective Data Vital Signs: Vital Signs Temp Pulse Resp BP Pulse Ox 98.5 F 82 16 136/68 H 93 10/18/20 09:01 10/18/20 09:01 10/18/20 09:01 10/18/20 09:01 10/18/20 11:12 Oxygen Flow Rate (L/min) 2 Oxygen Delivery Method Nasal Cannula Weight: 126 lb 5.198 oz Body Mass Index (BMI) 23.8 Intake & Output: Intake and Output for Last 24 Hours 10/16/20 10/17/20 10/18/20 23:59 23:59 23:59 Intake Total 454 / 504 1574 / 1574 632 / 632 Output Total 400 / 400 Balance 54 / 104 1574 / 1574 632 / 632 Lab / Micro Data Result Diagrams: 10/18/20 04:50 10/18/20 04:50 Labs: Laboratory Results - last 24 hr 10/18/20 10/18/20 04:50 04:50 WBC 16.8 H RBC 3.73 L Hgb 10.5 L Hct 31.4 L MCV 84.2 MCH 28.2 MCHC 33.4 RDW Std Deviation 46.5 H RDW Coeff of Celi 14.9 H Plt Count 267 MPV 10.9 Immature Gran % (Auto) 1.200 H Neut % (Auto) 73.5 H Lymph % (Auto) 11.0 L [place] % (Auto) 10.3 H Eos % (Auto) 3.8 Baso % (Auto) 0.2 Absolute Neuts (auto) 12.3 H Absolute Lymphs (auto) 1.85 Nucleated RBC % 0 Diff Path Review May foll Sodium 138 Potassium 3.6 Chloride 107 Carbon Dioxide 23.0 Anion Gap 8 BUN 30 H Creatinine 1.64 H Estim Creat Clear Calc 18.58 Est GFR (MDRD) Af Amer 38 L Est GFR (MDRD) Non-Af 32 L BUN/Creatinine Ratio 18.3 Glucose 103 Calcium 7.8 L Total Bilirubin 0.80 AST 45 H ALT 57 H Alkaline Phosphatase 83 Total Protein 6.0 L Albumin 1.7 L Globulin 4.3 H Albumin/Globulin Ratio 0.4 L Micro: Microbiology 10/14/20 17:35 Urine, Clean Catch Urine Culture - Final Mixed Gram Positive Organisms Cardiology Labs/Tests 10/18/20 04:50: WBC 16.8 H, RBC 3.73 L, Hgb 10.5 L, Hct 31.4 L, MCV 84.2, MCH 28.2, MCHC 33.4, Plt Count 267, MPV 10.9, Immature Gran % (Auto) 1.200 H, Neut % (Auto) 73.5 H, Lymph % (Auto) 11.0 L, [place] % (Auto) 10.3 H, Eos % (Auto) 3.8, Baso % (Auto) 0.2, Absolute Neuts (auto) 12.3 H, Nucleated RBC % 0 10/18/20 04:50: Sodium 138, Potassium 3.6, Chloride 107, Carbon Dioxide 23.0, Anion Gap 8, BUN 30 H, Creatinine 1.64 H, Est GFR (MDRD) Af Amer 38 L, Est GFR (MDRD) Non-Af 32 L, BUN/Creatinine Ratio 18.3, Glucose 103, Calcium 7.8 L, Total Bilirubin 0.80 Rhythm: A. fib with RVR
--- NOTE | 2020-10-18 15:07 | PCM.PN.HOSP ---
Subjective Subjective Patient was seen and examined. She is looking much better. She denied any new complaint. She is on 1 L of oxygen. Objective Data Objective Data Vital Signs: Vital Signs Temp Pulse Resp BP Pulse Ox 98.5 F 82 18 136/68 H 93 10/18/20 09:01 10/18/20 11:15 10/18/20 11:15 10/18/20 09:01 10/18/20 11:12 Oxygen Flow Rate (L/min) 92 Oxygen Delivery Method Nasal Cannula Weight: 57.3 kg Body Mass Index (BMI) 23.8 Intake & Output: Intake and Output for Last 24 Hours 10/16/20 10/17/20 10/18/20 23:59 23:59 23:59 Intake Total 454 / 504 1574 / 1574 632 / 632 Output Total 400 / 400 Balance 54 / 104 1574 / 1574 632 / 632 Lab / Micro Data Result Diagrams: 10/18/20 04:50 10/18/20 04:50 Labs: Laboratory Results - last 24 hr 10/18/20 10/18/20 04:50 04:50 WBC 16.8 H RBC 3.73 L Hgb 10.5 L Hct 31.4 L MCV 84.2 MCH 28.2 MCHC 33.4 RDW Std Deviation 46.5 H RDW Coeff of Celi 14.9 H Plt Count 267 MPV 10.9 Immature Gran % (Auto) 1.200 H Neut % (Auto) 73.5 H Lymph % (Auto) 11.0 L [place] % (Auto) 10.3 H Eos % (Auto) 3.8 Baso % (Auto) 0.2 Absolute Neuts (auto) 12.3 H Absolute Lymphs (auto) 1.85 Nucleated RBC % 0 [address] Path Review May foll Sodium 138 Potassium 3.6 Chloride 107 Carbon Dioxide 23.0 Anion Gap 8 BUN 30 H Creatinine 1.64 H Estim Creat Clear Calc 18.58 Est GFR (MDRD) Af Amer 38 L Est GFR (MDRD) Non-Af 32 L BUN/Creatinine Ratio 18.3 Glucose 103 Calcium 7.8 L Total Bilirubin 0.80 AST 45 H ALT 57 H Alkaline Phosphatase 83 Total Protein 6.0 L Albumin 1.7 L Globulin 4.3 H Albumin/Globulin Ratio 0.4 L Micro: Microbiology 10/14/20 17:35 Urine, Clean Catch Urine Culture - Final Mixed Gram Positive Organisms Physical Exam Narrative Physical exam: General: Alert, Oriented x3, Cooperative, in mild respiratory distress, on 1 L of oxygen HEENT: Atraumatic Oral: Moist Mucosa Neck: Supple Lungs: Diminished with crackles Cardiovascular: HS I+II, regular, no murmurs Abdomen: Bowel Sounds Present, Soft, Non Tender Extremities: Trace bilateral edema Assessment & Plan Assessment/Plan (1) Left ventricular thrombus: (2) Non-ST elevation (NSTEMI) myocardial infarction: (3) Cardiomyopathy: QUALIFIERS: Cardiomyopathy type: unspecified Qualified Code(s): I42.9 - Cardiomyopathy, unspecified PLAN: Summary: 85-year-old female with no significant past medical history who comes in with intractable nausea and vomiting and found to have acute non-STEMI, left ventricular thrombus. 1. Acute intractable nausea and vomiting secondary to acute gastroesophageal obstruction, resolved Status post EGD, continue on mechanical soft diet, on p.o. PPI twice daily Patient to follow-up with general surgery in the outpatient in 2 weeks. She is to continue on the mechanical soft diet. 2. Acute non-STEMI, Status post cardiac cath; findings showed clean coronaries Continue on aspirin, carvedilol, statins 3. Acute left ventricular thrombus, continue on apixaban 4. 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 ANIA, prerenal, creatinine worsening, currently 1.64 Lisinopril on hold, Nephrology consulted, follow-up on recommendations 6. Leukocytosis, improving, currently 16.8 No signs of fever, likely reactive, Will continue to monitor 7. Hypoxia secondary to #4, concerning for possible aspiration pneumonitis vs Acute CHF Continue on incentive spirometer 8. Hypokalemia, resolved Charges/Coding Visit Charges Inpatient E&M: 97644 Subs Hosp L2
--- NOTE | 2020-10-18 17:17 | PN.RENAL_ITS ---
Subjective Subjective no new events Objective Data Objective Data Vital Signs: Vital Signs Temp Pulse Resp BP Pulse Ox 98.6 F 91 18 118/67 93 10/18/20 15:00 10/18/20 15:37 10/18/20 15:37 10/18/20 15:00 10/18/20 15:00 Oxygen Flow Rate (L/min) 92 Oxygen Delivery Method Room Air Weight: 57.3 kg Body Mass Index (BMI) 23.8 Intake & Output: Intake and Output for Last 24 Hours 10/16/20 10/17/20 10/18/20 23:59 23:59 23:59 Intake Total 454 / 504 1574 / 1574 632 / 632 Output Total 400 / 400 Balance 54 / 104 1574 / 1574 632 / 632 Lab / Micro Data Result Diagrams: 10/18/20 04:50 10/18/20 04:50 Labs: Laboratory Results - last 24 hr 10/18/20 10/18/20 04:50 04:50 WBC 16.8 H RBC 3.73 L Hgb 10.5 L Hct 31.4 L MCV 84.2 MCH 28.2 MCHC 33.4 RDW Std Deviation 46.5 H RDW Coeff of Celi 14.9 H Plt Count 267 MPV 10.9 Immature Gran % (Auto) 1.200 H Neut % (Auto) 73.5 H Lymph % (Auto) 11.0 L [place] % (Auto) 10.3 H Eos % (Auto) 3.8 Baso % (Auto) 0.2 Absolute Neuts (auto) 12.3 H Absolute Lymphs (auto) 1.85 Nucleated RBC % 0 Diff Path Review May foll Sodium 138 Potassium 3.6 Chloride 107 Carbon Dioxide 23.0 Anion Gap 8 BUN 30 H Creatinine 1.64 H Estim Creat Clear Calc 18.58 Est GFR (MDRD) Af Amer 38 L Est GFR (MDRD) Non-Af 32 L BUN/Creatinine Ratio 18.3 Glucose 103 Calcium 7.8 L Total Bilirubin 0.80 AST 45 H ALT 57 H Alkaline Phosphatase 83 Total Protein 6.0 L Albumin 1.7 L Globulin 4.3 H Albumin/Globulin Ratio 0.4 L Micro: Microbiology 10/14/20 17:35 Urine, Clean Catch Urine Culture - Final Mixed Gram Positive Organisms Physical Exam Narrative Alert awake oriented x 3 no obvious distress no pallor no icterus no JVD s1s2 no murmurs lungs rales abdomen soft no organomegaly no edema no cyanosis Assessment & Plan Assessment/Plan (1) ANIA (acute kidney injury): PLAN: Cr on admission was normal. UA was fairly benign. has external catheter. BP is borderline. received IV contrast for CT abdomen 10/13 and diagnostic cath 10/14. subjectively urine output has decreased. she has also r eceived IV lasix in view of fluid overload. ATN due to contrast vs cardiorenal syndrome. Bp is ok. ok for lasix for now. cr is stable now. asking about dc tomorrow. ok from my end. will arrange follow up
[2020-10-18] MEDS: Atorvastatin Calcium 40 MG Tablet PO (21:16)
[2020-10-19] VITALS (8 sets, daily range): BP systolic 122–128; BP diastolic 55–65; PULSE 77–90; RESP 16–18; TEMP 36.6–37.2; O2SAT 91–93
[2020-10-19 05:32] LABS: Absolute Lymphocyte Count 2.06 X10^3/uL (0.83-4.51); Absolute Neutrophil Count 10.3 X10^3/uL (2.0-7.7); Basophil# 0.04 X10^3/uL; Basophil% 0.3 % (0-1); Eosinophil# 0.46 X10^3/uL; Eosinophils% 3.1 % (0-5); Hematocrit 31.8 % (37-47); Hemoglobin 10.6 g/dL (12.0-15.0); Lymphocyte # 2.06 X10^3/ul (0.83-4.51); Lymphocyte % 13.9 % (19-41); Mean Corp Hgb Conc 33.3 g/dL (32-36); Mean Corpuscular Volume 84.1 fL (81-99); Mean Platelet Vol. 10.8 fl (6.2-12.0); Monocyte% 11.5 % (0-10); NRBC Flagged by Analyzer 0 % (0-5); Neutrophil # 10.28 X10^3/uL (2.7-7.7); Neutrophil % 69.6 % (47-70); POSITIVE DIFFERENTIAL YES; Platelet Count 299 K/mm3 (150-450); RBC Distribution Width CV 14.8 % (11.6-14.6); RBC Distribution Width SD 45.4 fl (35.1-43.9); Red Blood Count 3.78 M/mm3 (4.2-5.4); White Blood Count 14.8 K/mm3 (4.4-11.0)
[2020-10-19 05:56] LABS: ALB/GLOB Ratio 0.4 RATIO (0.9-2.4); AST(SGOT) 56 U/L (15-37); Alanine Aminotransfer ALT/SGPT 61 U/L (13-56); Albumin, Serum 1.7 g/dL (3.2-5.0); Alkaline Phosphatase 96 U/L (45-117); Anion Gap 6 (5-15); BUN 23 mg/dL (7-18); BUN/Creat Ratio 15.3 RATIO (10-20); Calcium,Total 7.6 mg/dL (8.5-10.1); Chloride 105 mmol/L (98-107); EST Glomerular Filtration Rate 35 mL/min (>60); Est Glom Filt Rate - Afr Amer 42 mL/min (>60); Estimated Creatinine Clearance 20.32 ml/min; Globulin 4.2 g/dL (2.2-4.2); Glucose 104 mg/dL (74-106); Potassium 3.5 mmol/L (3.5-5.1); Protein, Total 5.9 g/dL (6.4-8.2); Sodium Level 135 mmol/L (136-145)
[2020-10-19 06:02] LABS: Differential Indicated SCAN CRITERIA MET
[2020-10-19] MEDS: Ipratropium/Albuterol Sulfate 3 ML AMPUL.NEB INHALATION ×2 (07:22→10:51)
[2020-10-19] MEDS: Multivitamins,Ther W-Minerals Tablet 1 TABLET PO (09:33)
[2020-10-19] MEDS: Pantoprazole Sodium 40 MG Tablet PO (09:33)
[2020-10-19] MEDS: Carvedilol 6.25 MG Tablet PO (09:33)
[2020-10-19] MEDS: Fluticasone 0.05% 1 SPRAY NASAL.SRY 2 SPRAY NASAL (09:33)
[2020-10-19] MEDS: APIXABAN 2.5 MG TABLET PO (09:33)
[2020-10-19] MEDS: Aspirin 81 MG TAB.CHEW PO (09:34)
[2020-10-19] MEDS: NYSTATIN 500,000 UNIT/5 ML UDC 500000 UNIT PO ×2 (09:34→15:07)
[2020-10-19] MEDS: Furosemide 20 MG Tablet PO (09:34)
--- NOTE | 2020-10-19 11:33 | DS.PCM_ITS ---
Providers Date of Admission: 10/14/20 Primary Care Physician: Melissa Primary Care Phys Consultations 10/13/20 12:44 Consult: General Surgery Routine Consulting Provider: Sadi Summers Reason for Consult: Abnoemal barium esophagram EMERGENT Consult: Yes Notified: Yes Date Notified: 10/13/20 Time Notified: 12:44 Method of Notification: Verbal Method of Consult:: In-Person 10/13/20 19:27 Consult: Cardiology Routine Consulting Provider: Mau Snyder Reason for Consult: NSTEMI EMERGENT Consult: Yes MD Notified: Yes Date Notified: 10/13/20 Time Notified: 16:19 Method of Notification: Verbal 10/15/20 08:56 Consult: Nephrology Routine Consulting Provider: Oliver Casey Reason for Consult: ANIA EMERGENT Consult: No Notified: Yes Date Notified: 10/15/20 Time Notified: 08:56 Method of Notification: Answering Service Reason For Visit: VOMITING Diagnosis Discharge Diagnosis (1) ANIA (acute kidney injury): Status: Acute Code(s): N17.9 - Acute kidney failure, unspecified Medications at Discharge Home Medications Centrum Silver 1 ea PO DAILY 05/02/13 [id number]-VD 2 drp EACH EAR QHS 10/12/20 apixaban [Eliquis] 2.5 mg PO BID 30 Days #60 tab 10/19/20 aspirin 81 mg PO DAILY@0800 #30 tab 10/19/20 atorvastatin 40 mg PO QHS #30 tab 10/19/20 carvedilol 6.25 mg PO BID #60 tab 10/19/20 furosemide 20 mg PO DAILY #30 tab 10/19/20 pantoprazole 40 mg PO BID #60 tab 10/19/20 Hospital Course Operations None Procedures 2-D Echocardiogram and Cardiac catheterization Summary of Care Provided Minutes Spent on Discharge: 45 Hospital Course: Patient is an 85 y/o female admitted via the ED on 10/13/2020 with a complaint of vomiting. She was unable to keep anything down and was brought in to the ED. Weight / BMI Weight Weight: 126 lb 5.198 oz Body Mass Index (BMI) 23.8 ABG / Lab / Microbiology Data Result Diagrams: 10/19/20 05:06 10/19/20 05:06 Laboratory: Laboratory Results - last 24 hr 10/19/20 10/19/20 05:06 05:06 WBC 14.8 H RBC 3.78 L Hgb 10.6 L Hct 31.8 L MCV 84.1 MCH 28.0 MCHC 33.3 RDW Std Deviation 45.4 H RDW Coeff of Celi 14.8 H Plt Count 299 MPV 10.8 Immature Gran % (Auto) 1.600 H Neut % (Auto) 69.6 Lymph % (Auto) 13.9 L [place] % (Auto) 11.5 H Eos % (Auto) 3.1 Baso % (Auto) 0.3 Absolute Neuts (auto) 10.3 H Absolute Lymphs (auto) 2.06 Nucleated RBC % 0 [address] Review May foll Sodium 135 L Potassium 3.5 Chloride 105 Carbon Dioxide 24.0 Anion Gap 6 BUN 23 H Creatinine 1.50 H Estim Creat Clear Calc 20.32 Est GFR (MDRD) Af Amer 42 L Est GFR (MDRD) Non-Af 35 L BUN/Creatinine Ratio 15.3 Glucose 104 Calcium 7.6 L Total Bilirubin 0.70 AST 56 H ALT 61 H Alkaline Phosphatase 96 Total Protein 5.9 L Albumin 1.7 L Globulin 4.2 Albumin/Globulin Ratio 0.4 L Microbiology: Microbiology 10/14/20 17:35 Urine, Clean Catch Urine Culture - Final Mixed Gram Positive Organisms Discharge Plan Admission Admit Date/Time: 10/14/20 13:35 Primary Reason for Your Visit: nonstemi Attending Provider: Alanis Colmenares Primary Care Provider: Care Physician,No Primary Consulting Providers: Mau Snyder ; Sadi Summers ; Oliver Casey Instructions Patient Instructions: First Aid: Heart Attacks, Acute Kidney Failure Dc, Exercising After a Heart Attack Additional Instructions / Restrictions: to follow up with nephrology for BMP to be done on outpatient basis to monitor kidney function Discharge Orders/Prescriptions Prescriptions: New atorvastatin 40 mg Tablet 40 mg PO QHS Qty: 30 RF: 1 carvedilol 6.25 mg Tablet 6.25 mg PO BID Qty: 60 RF: 1 pantoprazole 40 mg Tablet,Delayed Release (Dr/Ec) 40 mg PO BID Qty: 60 RF: 1 aspirin 81 mg Tablet,Chewable 81 mg PO DAILY@0800 Qty: 30 RF: 1 furosemide 20 mg Tablet 20 mg PO DAILY Qty: 30 RF: 1 Eliquis 2.5 mg Tablet 2.5 mg PO BID 30 Days Qty: 60 RF: 1 Continued Centrum Silver 1 EACH tablet 1 ea PO DAILY RF: 0 uhakvovr-aulnthmtn-NZ 3.5-10,000-1 mg/mL-unit/mL-% solution 2 drp EACH EAR QHS RF: 0 Referrals / Follow Up: Jose Deutsch MD [STAFF PHYSICIAN] - Within 2 Weeks (call office to set up PCP appointment with Dr Deutsch) Oliver Casey MD [STAFF PHYSICIAN] - Within 1 Week Mau Snyder MD [STAFF PHYSICIAN] - Within 2 Weeks Care Physician,No Primary [Primary Care Provider] - Disposition Disposition (needs filled in before D/C Order can be placed): Home, Self Care
--- NOTE | 2020-10-19 11:38 | PCM.DC ---
Discharge Instructions Follow Up Care Test Results: Test results from this visit will be discussed in further detail at your follow-up appointment, if applicable. Discharge Plan Admission Admit Date/Time: 10/14/20 13:35 Primary Reason for Your Visit: nonstemi Attending Provider: Alanis Colmenares Primary Care Provider: Care Physician,No Primary Consulting Providers: Mau Snyder ; Sadi Summers ; Oliver Casey Instructions Patient Instructions: First Aid: Heart Attacks, Acute Kidney Failure Dc, Exercising After a Heart Attack Additional Instructions / Restrictions: to follow up with nephrology for BMP to be done on outpatient basis to monitor kidney function Discharge Orders/Prescriptions Prescriptions: New atorvastatin 40 mg Tablet 40 mg PO QHS Qty: 30 RF: 1 carvedilol 6.25 mg Tablet 6.25 mg PO BID Qty: 60 RF: 1 pantoprazole 40 mg Tablet,Delayed Release (Dr/Ec) 40 mg PO BID Qty: 60 RF: 1 aspirin 81 mg Tablet,Chewable 81 mg PO DAILY@0800 Qty: 30 RF: 1 furosemide 20 mg Tablet 20 mg PO DAILY Qty: 30 RF: 1 Eliquis 2.5 mg Tablet 2.5 mg PO BID 30 Days Qty: 60 RF: 1 Continued Centrum Silver 1 EACH tablet 1 ea PO DAILY RF: 0 oclxyjqb-fhezajgol-DX 3.5-10,000-1 mg/mL-unit/mL-% solution 2 drp EACH EAR QHS RF: 0 Referrals / Follow Up: Jose Deutsch MD [STAFF PHYSICIAN] - Within 2 Weeks (call office to set up PCP appointment with Dr Deutsch) Oliver Casey MD [STAFF PHYSICIAN] - Within 1 Week Mau Snyder MD [STAFF PHYSICIAN] - Within 2 Weeks Care Physician,No Primary [Primary Care Provider] - Disposition Disposition (needs filled in before D/C Order can be placed): Home, Self Care
--- NOTE | 2020-10-19 11:45 | CASEMGMT ---
Palliative screening tool completed for [facility]. Patient meets criteria, hospitalist notified. Per hospitalist, no referral at this time.
--- NOTE | 2020-10-19 12:09 | CASEMGMT ---
This RN CM to room to discuss d/c plan with pt/. Pt is back on 1L nc and Gamaliel RN to complete ambulatory pulse ox prior to discharge. Pt/ and Gamaliel RN state FWW was delivered on 10/16 and took it home already. CM to follow for home oxygen need. OP script re-faxed to [facility] per pt/ request. This RN CM had already provided pt with a list of local PCP's and this RN CM answered several questions regarding PCP's for pt/. CM to follow for any further discharge planning/needs. Christophe GOTTI CM
--- NOTE | 2020-10-19 12:42 | DS.PCM_ITS ---
Providers Date of Admission: 10/14/20 Primary Care Physician: Melissa Primary Care Phys Consultations 10/13/20 12:44 Consult: General Surgery Routine Consulting Provider: Sadi Summers Reason for Consult: Abnoemal barium esophagram EMERGENT Consult: Yes Notified: Yes Date Notified: 10/13/20 Time Notified: 12:44 Method of Notification: Verbal Method of Consult:: In-Person 10/13/20 19:27 Consult: Cardiology Routine Consulting Provider: Mau Snyder Reason for Consult: NSTEMI EMERGENT Consult: Yes Notified: Yes Date Notified: 10/13/20 Time Notified: 16:19 Method of Notification: Verbal 10/15/20 08:56 Consult: Nephrology Routine Consulting Provider: Oliver Casey Reason for Consult: ANIA EMERGENT Consult: No Notified: Yes Date Notified: 10/15/20 Time Notified: 08:56 Method of Notification: Answering Service Reason For Visit: VOMITING Diagnosis Discharge Diagnosis (1) ANIA (acute kidney injury): Status: Acute Code(s): N17.9 - Acute kidney failure, unspecified Medications at Discharge Home Medications Centrum Silver 1 ea PO DAILY 05/02/13 [id number]-qyfsedoyr-TS 2 drp EACH EAR QHS 10/12/20 apixaban [Eliquis] 2.5 mg PO BID 30 Days #60 tab 10/19/20 aspirin 81 mg PO DAILY@0800 #30 tab 10/19/20 atorvastatin 40 mg PO QHS #30 tab 10/19/20 carvedilol 6.25 mg PO BID #60 tab 10/19/20 furosemide 20 mg PO DAILY #30 tab 10/19/20 pantoprazole 40 mg PO BID #60 tab 10/19/20 Hospital Course Operations None Procedures EGD Summary of Care Provided Minutes Spent on Discharge: 40 Hospital Course: Patient is an 85 y/o female with a PMH as outlined who was admitted via the ED on 10/13/2020 with a complaint of intractable nausea and vomiting. She was eating homemade potato soup and chicken, and felt like a potato was stuck in her throat. She started vomiting and couldnt keep anything down. She was therefore admitted and managed for intractable nausea and vomitin g. She had a barium swallow, and it showed an obstruction of the GE junction. EKG also showed wave inversions in the lateral leads, with ST segment elevation in V1 to V3, with troponins of >3500. Cardiology was also consulted, as well as general surgery. 2 D echo was ordered which showed EF of 30% with LV thrombus. She was started on heparin drip. EGD showed food at the gastroesophageal junction which was successfully removed by the surgeon. 2D echo showed EF of 30% with left ventricular systolic pressure of 39 mmHg and a left ventricular apical thrombus. She had cardiac cath which showed normal coronaries with mild luminal irregularities in the proximal LAD and proximal circumflex artery. She was started on Eliquis. Nephrology was also consulted as she developed ANIA. Creatinine trended down to a mindi of 1.5 at time of discharge. She remained stable and was discharged home on 10/19/2020. She was discharged on Eliquis as well as Lasix and beta-darshan. She is to follow-up with her primary care doctor and follow-up with cardiology and nephrology. Of note, patient did not have a PCP so was referred to [facility] to establish PCP care. She is also to follow-up with general surgery in 1 week for scheduling of outpatient EGD for further evaluation. Patient seen and examined. She has no complaints and feels well. Review of systems is otherwise negative. Labs and vitals reviewed. Home meds reviewed and reconciled. Physical Exam Const alert, oriented x3 and no apparent distress General Appearance: cooperative, comfortable and well kempt Orientation / Consciousness: awake, oriented to person, oriented to place and oriented to time HEENT normocephalic, head/scalp atraumatic and moist oral mucous membranes Eyes PERRL, EOMs intact bilaterally and conjunctivae normal Eyes Narrative: No scleral icterus Neck no lymphadenopathy Resp normal respiratory effort, no use of accessory muscles and clear to auscultation bilaterally Cardio regular rate, regular rhythm, S1 normal heart sound, S2 normal heart sound and no murmurs Peripheral Pulses: pulses 2+ throughout GI normal to inspection, nondistended, normoactive bowel sounds, non-tender and non-distended Extremity normal to inspection, full ROM and no clubbing, cyanosis or edema Skin no rashes or lesions noted Skin Narrative: Patient has some small patch of dry skin underneath her left eye. Lesions: no lesions Rashes: no rashes Trauma: no lacerations or abrasions Neuro CN's II-XII intact bilaterally, no focal motor deficits, no sensory deficits noted and deep tendon reflexes 2+ bilaterally Sensorium / Orientation: awake and alert Psych mental status grossly normal and affect normal Weight / BMI Weight Weight: 126 lb 5.198 oz Body Mass Index (BMI) 23.8 ABG / Lab / Microbiology Data Result Diagrams: 10/19/20 05:06 10/19/20 05:06 Laboratory: Laboratory Results - last 24 hr 10/19/20 10/19/20 05:06 05:06 WBC 14.8 H RBC 3.78 L Hgb 10.6 L Hct 31.8 L MCV 84.1 MCH 28.0 MCHC 33.3 RDW Std Deviation 45.4 H RDW Coeff of Celi 14.8 H Plt Count 299 MPV 10.8 Immature Gran % (Auto) 1.600 H Neut % (Auto) 69.6 Lymph % (Auto) 13.9 L [place] % (Auto) 11.5 H Eos % (Auto) 3.1 Baso % (Auto) 0.3 Absolute Neuts (auto) 10.3 H Absolute Lymphs (auto) 2.06 Nucleated RBC % 0 Diff Path Review May foll Sodium 135 L Potassium 3.5 Chloride 105 Carbon Dioxide 24.0 Anion Gap 6 BUN 23 H Creatinine 1.50 H Estim Creat Clear Calc 20.32 Est GFR (MDRD) Af Amer 42 L Est GFR (MDRD) Non-Af 35 L BUN/Creatinine Ratio 15.3 Glucose 104 Calcium 7.6 L Total Bilirubin 0.70 AST 56 H ALT 61 H Alkaline Phosphatase 96 Total Protein 5.9 L Albumin 1.7 L Globulin 4.2 Albumin/Globulin Ratio 0.4 L Microbiology: Microbiology 10/14/20 17:35 Urine, Clean Catch Urine Culture - Final Mixed Gram Positive Organisms D/C Instructions Discharge Diet: 2000 mg Sodium Diet Discharge Activity: Return to Normal Activity Weight Bearing Status: Weight bearing as tolerated Call your doctor if you observe: Fever of 101 or Higher, Shortness of breath, Swelling in the ankles and Increased palpitations (irregular heartbeat) Meaningful Use Info Meaningful Use Diagnoses (Choose all that apply): None applicable and AMI AMI/Post PCI/Angioplasty Aspirin given w/in 24hrs of arrival?: Yes ASA at discharge?: Yes Antiplatelet Therapy at Discharge:: No Reason Antiplatelet Therapy not ordered:: bleeding risk Statins at discharge?: Yes Anatoly/ARB at discharge?: Yes Beta Darshan at discharge?: Yes Done w/ Acute HI measure.: Yes Documented LVEF (%): 20 Discharge Plan Admission Admit Date/Time: 10/14/20 13:35 Primary Reason for Your Visit: nonstemi Attending Provider: Alanis Colmenares Primary Care Provider: Care Physician,No Primary Consulting Providers: Mau Snyder ; Sadi Summers ; Oliver Casey Instructions Patient Instructions: First Aid: Heart Attacks, Acute Kidney Failure Dc, Exercising After a Heart Attack Additional Instructions / Restrictions: to follow up with nephrology for BMP to be done on outpatient basis to monitor kidney function Discharge Orders/Prescriptions Prescriptions: New atorvastatin 40 mg Tablet 40 mg PO QHS Qty: 30 RF: 1 carvedilol 6.25 mg Tablet 6.25 mg PO BID Qty: 60 RF: 1 pantoprazole 40 mg Tablet,Delayed Release (Dr/Ec) 40 mg PO BID Qty: 60 RF: 1 aspirin 81 mg Tablet,Chewable 81 mg PO DAILY@0800 Qty: 30 RF: 1 furosemide 20 mg Tablet 20 mg PO DAILY Qty: 30 RF: 1 Eliquis 2.5 mg Tablet 2.5 mg PO BID 30 Days Qty: 60 RF: 1 Continued Centrum Silver 1 EACH tablet 1 ea PO DAILY RF: 0 kyvuixjj-cbqxkgbic-QF 3.5-10,000-1 mg/mL-unit/mL-% solution 2 drp EACH EAR QHS RF: 0 Referrals / Follow Up: Jose Deutsch MD [STAFF PHYSICIAN] - 10/28/20 2:30 pm (appointment is with Zachery Negron N.P. This appointment is a hospital follow up Need to arrive at 2:00pm to fill out paper work as new patient ) Oliver Casey MD [STAFF PHYSICIAN] - 11/04/20 11:00 am ([address] [place], [place] The office will mail lab work to be drawn one week prior to appointment ) Mau Snyder MD [STAFF PHYSICIAN] - 11/05/20 2:30 pm Care Physician,No Primary [Primary Care Provider] - Jose Deutsch MD [[facility]] - 11/30/20 2:30 pm (This appointment is to establish care with Dr. Deutsch) Disposition Disposition (needs filled in before D/C Order can be placed): Home, Self Care Charges/Coding Visit Charges Inpatient E&M: 19177 Disch Hosp
[2020-10-19 13:42] LABS: Pathologist Review Reviewed
[2020-10-19 13:46] LABS: Pathologist Review Reviewed
--- NOTE | 2020-10-19 13:46 | CASEMGMT ---
Per Gamaliel GOTTI, pt does not qualify for home oxygen. Pt is ready for discharge. Christophe GOTTI CM
[2020-10-19 13:51] LABS: Pathologist Review Reviewed
--- NOTE | 2020-10-19 13:59 | PCM.PN.REN ---
Subjective Subjective Following for ANIA. The patient denies chest pain, shortness of breath, nausea, or increasing edema. Objective Data Objective Data Vital Signs: Vital Signs Temp Pulse Resp BP Pulse Ox 97.8 F 87 16 124/65 H 93 10/19/20 09:15 10/19/20 09:15 10/19/20 09:15 10/19/20 09:15 10/19/20 13:45 Oxygen Flow Rate (L/min) [ 0 AMBULATING on Room Air] Oxygen Flow Rate (L/min) [At 0 REST on Room Air] Oxygen Flow Rate (L/min) 2 Oxygen Delivery Method Nasal Cannula Weight: 57.3 kg Body Mass Index (BMI) 23.8 Intake & Output: Intake and Output for Last 24 Hours 10/17/20 10/18/20 10/19/20 23:59 23:59 23:59 Intake Total 1574 / 1574 1144 / 1264 292 / 292 Output Total 2 / 2 600 / 600 Balance 1574 / 1574 1142 / 1262 -308 / -308 Lab / Micro Data Result Diagrams: 10/19/20 05:06 10/19/20 05:06 Labs: Laboratory Results - last 24 hr 10/16/20 10/17/20 10/18/20 08:05 05:48 04:50 WBC RBC Hgb Hct MCV MCH MCHC RDW Std Deviation RDW Coeff of Celi Plt Count MPV Immature Gran % (Auto) Neut % (Auto) Lymph % (Auto) [place] % (Auto) Eos % (Auto) Baso % (Auto) Absolute Neuts (auto) Absolute Lymphs (auto) Nucleated RBC % Diff Path Review Reviewed Reviewed Reviewed Sodium Potassium Chloride Carbon Dioxide Anion Gap BUN Creatinine Estim Creat Clear Calc Est GFR (MDRD) Af Amer Est GFR (MDRD) Non-Af BUN/Creatinine Ratio Glucose Calcium Total Bilirubin AST ALT Alkaline Phosphatase Total Protein Albumin Globulin Albumin/Globulin Ratio 10/19/20 10/19/20 05:06 05:06 WBC 14.8 H RBC 3.78 L Hgb 10.6 L Hct 31.8 L MCV 84.1 MCH 28.0 MCHC 33.3 RDW Std Deviation 45.4 H RDW Coeff of Celi 14.8 H Plt Count 299 MPV 10.8 Immature Gran % (Auto) 1.600 H Neut % (Auto) 69.6 Lymph % (Auto) 13.9 L [place] % (Auto) 11.5 H Eos % (Auto) 3.1 Baso % (Auto) 0.3 Absolute Neuts (auto) 10.3 H Absolute Lymphs (auto) 2.06 Nucleated RBC % 0 Diff Path Review May foll Sodium 135 L Potassium 3.5 Chloride 105 Carbon Dioxide 24.0 Anion Gap 6 BUN 23 H Creatinine 1.50 H Estim Creat Clear Calc 20.32 Est GFR (MDRD) Af Amer 42 L Est GFR (MDRD) Non-Af 35 L BUN/Creatinine Ratio 15.3 Glucose 104 Calcium 7.6 L Total Bilirubin 0.70 AST 56 H ALT 61 H Alkaline Phosphatase 96 Total Protein 5.9 L Albumin 1.7 L Globulin 4.2 Albumin/Globulin Ratio 0.4 L Micro: Microbiology 10/14/20 17:35 Urine, Clean Catch Urine Culture - Final Mixed Gram Positive Organisms Physical Exam Narrative Alert awake oriented x 3 no obvious distress no pallor no icterus no JVD Normal S1-S2 no murmurs lungs are clear to auscultation bilaterally abdomen soft no organomegaly no edema no cyanosis Assessment & Plan Assessment/Plan (1) ANIA (acute kidney injury): PLAN: Normal baseline renal function. Serum creatinine was 0.82 mg/dL on 10/12/2020. Suspect ANIA is due to multifactorial ATN. Renal function is improving. She never needed dialysis. Would recommend keeping the patient on even fluid balance. She appears to be euvolemic at this time. Would continue to hold lisinopril for now. We can restart TAIWO inhibitor when renal function returns to normal baseline. Medications are reviewed, and are appropriately dosed for the current estimated creatinine clearance. If the patient is discharged today, I will arrange for follow-up in our [place] office. (2) Hyponatremia: PLAN: The patient is mildly hyponatremic with serum sodium of 135 mmol/L today. This is likely due to ANIA and poor solute intake. There is no need for alteration in therapy. She is asymptomatic from hyponatremia without headache, nausea, or ataxia. We will continue to monitor serum sodium level. (3) Non-ST elevation (NSTEMI) myocardial infarction: PLAN: The patient is on aspirin and beta-abdi. We can restart TAIWO inhibitor when renal function returns to normal. The patient should follow up with nephrology as outpatient to follow progression of renal improvement. (4) Cardiomyopathy: QUALIFIERS: Cardiomyopathy type: unspecified Qualified Code(s): I42.9 - Cardiomyopathy, unspecified PLAN: The patient appears to be compensated. There is no signs of overt volume overload at this point. She is on a low-dose furosemide at 20 mg/day. As mentioned above, once renal function improves to baseline, we can reintroduce lisinopril as well.
--- NOTE | 2020-10-19 14:02 | PHA.DC.MC ---
Pharmacy Service has performed discharge medication reconciliation and counseling for this patient. 1. ASPIRIN 81MG PO DAILY 2. APIXABAN 2.5MG PO BID 3. ATORVASTATIN 40MG PO QHS 4. CARVEDILOL 6.25MG PO BID 5. FUROSEMIDE 20MG PO DAILY 6. PANTOPRAZOLE 40MG PO BID The patient's discharge medication list was reviewed for discrepancies and discrepancies were resolved. Home Medications Centrum Silver 1 ea PO DAILY 05/02/13 oviibhgm-gaozhpiub-AG 2 drp EACH EAR QHS 10/12/20 apixaban [Eliquis] 2.5 mg PO BID 30 Days #60 tab 10/19/20 aspirin 81 mg PO DAILY@0800 #30 tab 10/19/20 atorvastatin 40 mg PO QHS #30 tab 10/19/20 carvedilol 6.25 mg PO BID #60 tab 10/19/20 furosemide 20 mg PO DAILY #30 tab 10/19/20 pantoprazole 40 mg PO BID #60 tab 10/19/20 The patient was counseled on the following discharge medications and changes in medications for homegoing were reviewed. The Reason for Use, instructions for use, and potential side effects were reviewed for all new medications. The patient's questions regarding all of their medications were answered. The patient was able to verbally demonstrate an understanding of their discharge medications.
[2020-10-20 12:57] LABS: Pathologist Review Reviewed
--- NOTE | 2020-10-20 14:57 | CASEMGMT ---
SHEN BERRY Discharge Follow-up Phone Call: JADACrissy: Jonn Strata: 3 Call Date: 10/20/20 Discharge Date: 10/19/20 Time of Call: 1455 Duration: 5 min Admitting Diagnosis: Vomiting, NSTEMI SHEN BERRY completed follow-up phone call after recent hospitalization. Patient states she is doing well. Paitent states she had no questions or concerns regarding discharge instructions. Patient states she was able to fill prescriptions without any issues and is organizing her medications. Patient is aware of follow-up appts scheduled. Patient states she received call from [employer] [facility] [employer] [employer] regarding outpatient therapy.
--- NOTE | 2020-10-21 15:24 | CCN.REFER ---
PATIENT AGREES TO CCN. CCN TO START WEEKLY VISITS STARTING WEEK OF 10/26.
== END 2020-10-19 16:26 | disposition home or self-care (01) | DRG 281 ==
LOC: ED 23:28 → MS3 10-13 02:51 → PCU 10-14 17:51
PROVIDERS: Internal Medicine; Internal Medicine Cardiovascular Disease; Nurse Practitioner Family; Surgery; Emergency Provider Emergency Medicine; Visit Provider Student in an Organized Health Care Education/Training Program
PROC: 0DJ08ZZ Inspection of Upper Intestinal Tract, Via Natural or Artificial Opening Endoscopic (ICD-10-PCS; CPT 43235; principal; 2020-10-13 13:30)
DX: I21.4 Non-ST elevation (NSTEMI) myocardial infarction (principal); I50.20 Unspecified systolic (congestive) heart failure; I42.8 Other cardiomyopathies; I51.81 Takotsubo syndrome; N17.9 Acute kidney failure, unspecified; T18.128A Food in esophagus causing other injury, initial encounter; R11.2 Nausea with vomiting, unspecified; D72.829 Elevated white blood cell count, unspecified; E87.6 Hypokalemia; H91.93 Unspecified hearing loss, bilateral; X58.XXXA Exposure to other specified factors, initial encounter; I51.3 Intracardiac thrombosis, not elsewhere classified; R09.02 Hypoxemia
CPT/HCPCS: 36415; 71045; 71046; 74022; 74177; 74220; 80048; 80053; 81001; 83690; 83735; 84145; 84484; 85025; 85610; 85730; 87086; 87088; 87635; 92526; 92610; 93005; 93306; 93454; 94640; 97110; 97162; 97166; 97530; 97535; 99152; 99153; 99283; J7030; J7050; Q9957; Q9967; U0005; A4216; C1769; C1894; C8929; J0295; J1940; J2405; J3490; U0003

== ENCOUNTER → 2020-10-27 11:40 | Outpatient (CLI) | payer MEDICARE, SELFPAY ==
[2020-10-13 13:36] VITALS: BMI 23.8
[2020-10-27 13:30] LABS: Hematocrit 39.1 % (37-47); Hemoglobin 12.6 g/dL (12.0-15.0); Mean Corp Hgb Conc 32.2 g/dL (32-36); Mean Corpuscular Hgb 27.7 pg (27.0-32.0); Mean Corpuscular Volume 85.9 fL (81-99); Mean Platelet Vol. 9.9 fl (6.2-12.0); Platelet Count 614 K/mm3 (150-450); RBC Distribution Width CV 14.4 % (11.6-14.6); RBC Distribution Width SD 45.1 fl (35.1-43.9); Red Blood Count 4.55 M/mm3 (4.2-5.4); White Blood Count 14.4 K/mm3 (4.4-11.0)
[2020-10-27 14:01] LABS: Albumin, Serum 2.4 g/dL (3.2-5.0); BUN 23 mg/dL (7-18); BUN/Creat Ratio 16.2 RATIO (10-20); Calcium,Total 8.9 mg/dL (8.5-10.1); Chloride 103 mmol/L (98-107); Creatinine, Serum 1.42 mg/dL (0.55-1.02); EST Glomerular Filtration Rate 37 mL/min (>60); Est Glom Filt Rate - Afr Amer 45 mL/min (>60); Glucose 95 mg/dL (74-106); Phosphorus 3.5 mg/dL (2.5-4.9); Potassium 4.5 mmol/L (3.5-5.1); Sodium Level 134 mmol/L (136-145)
== END ==
PROVIDERS: PCP Internal Medicine; Referring Provider Internal Medicine Nephrology; Visit Provider Internal Medicine Nephrology
DX: N17.9 Acute kidney failure, unspecified (principal)
CPT/HCPCS: 36415; 80069; 85027

== ENCOUNTER → 2020-11-23 13:30 | Outpatient (CLI) | payer MEDICARE, SELFPAY ==
[2020-11-05 14:37] VITALS: BMI 23.8
[2020-11-23 15:05] LABS: Absolute Lymphocyte Count 3.38 X10^3/uL (0.83-4.51); Absolute Neutrophil Count 6.5 X10^3/uL (2.0-7.7); Basophil# 0.09 X10^3/uL; Basophil% 0.8 % (0-1); Eosinophil# 0.89 X10^3/uL; Eosinophils% 7.6 % (0-5); Hematocrit 37.6 % (37-47); Lymphocyte # 3.38 X10^3/ul (0.83-4.51); Lymphocyte % 28.8 % (19-41); Mean Corp Hgb Conc 31.9 g/dL (32-36); Mean Corpuscular Hgb 27.4 pg (27.0-32.0); Mean Corpuscular Volume 85.8 fL (81-99); Mean Platelet Vol. 10.6 fl (6.2-12.0); Monocyte# 0.86 X10^3/uL; Monocyte% 7.3 % (0-10); NRBC Flagged by Analyzer 0 % (0-5); Neutrophil # 6.46 X10^3/uL (2.7-7.7); Neutrophil % 55.1 % (47-70); Platelet Count 266 K/mm3 (150-450); RBC Distribution Width CV 14.7 % (11.6-14.6); RBC Distribution Width SD 46.5 fl (35.1-43.9); Red Blood Count 4.38 M/mm3 (4.2-5.4); White Blood Count 11.7 K/mm3 (4.4-11.0)
[2020-11-23 15:18] LABS: ALB/GLOB Ratio 0.6 RATIO (0.9-2.4); AST(SGOT) 57 U/L (15-37); Alanine Aminotransfer ALT/SGPT 84 U/L (13-56); Albumin, Serum 2.8 g/dL (3.2-5.0); Alkaline Phosphatase 248 U/L (45-117); Anion Gap 5 (5-15); BUN 21 mg/dL (7-18); BUN/Creat Ratio 15.1 RATIO (10-20); Calcium,Total 8.9 mg/dL (8.5-10.1); Chloride 107 mmol/L (98-107); Creatinine, Serum 1.39 mg/dL (0.55-1.02); EST Glomerular Filtration Rate 38 mL/min (>60); Est Glom Filt Rate - Afr Amer 46 mL/min (>60); Glucose 90 mg/dL (74-106); Potassium 5.1 mmol/L (3.5-5.1); Protein, Total 7.8 g/dL (6.4-8.2); Sodium Level 135 mmol/L (136-145)
== END ==
PROVIDERS: Nurse Practitioner Family; PCP Internal Medicine; Visit Provider Internal Medicine
DX: R11.2 Nausea with vomiting, unspecified (principal); N17.9 Acute kidney failure, unspecified; D47.3 Essential (hemorrhagic) thrombocythemia
CPT/HCPCS: 36415; 80053; 85025

== ENCOUNTER → 2021-01-04 14:21 | Outpatient (CLI) | payer MEDICARE, SELFPAY | PROVIDERS: PCP Internal Medicine; Visit Provider Physician Assistant | DX: Z00.00 Encounter for general adult medical examination without abnormal findings (principal) ==

== ENCOUNTER → 2021-02-02 11:28 | Outpatient (CLI) | payer MEDICARE, SELFPAY ==
[2021-02-02 12:52] LABS: Albumin, Serum 2.7 g/dL (3.2-5.0); BUN 25 mg/dL (7-18); Chloride 107 mmol/L (98-107); Creatinine, Serum 1.25 mg/dL (0.55-1.02); EST Glomerular Filtration Rate 43 mL/min (>60); Est Glom Filt Rate - Afr Amer 52 mL/min (>60); Glucose 100 mg/dL (74-106); Phosphorus 2.7 mg/dL (2.5-4.9); Potassium 4.5 mmol/L (3.5-5.1); Sodium Level 141 mmol/L (136-145)
== END ==
PROVIDERS: PCP Internal Medicine; Referring Provider Nurse Practitioner Adult Health; Visit Provider Nurse Practitioner Adult Health
DX: N17.9 Acute kidney failure, unspecified (principal)
CPT/HCPCS: 36415; 80069

== ENCOUNTER → 2021-02-22 09:05 | Outpatient (CLI) | payer MEDICARE, SELFPAY ==
--- NOTE | 2021-02-22 09:07 | ECHOCS_ITS ---
Reason For Study: CHF Procedure This was a 2D Doppler, Color Flow transthoracic echocardiogram. The study was technically difficult. Contrast injection was performed. Exam performed in department. Left Ventricle Normal LV size. Segmental dysfunction with preserved ejection fraction (see wall motion). The estimated ejection fraction is 55 %. Septal motion consistent with IVCD. Diastolic function is indeterminate. [place] : Hypokinetic. Right Ventricle Normal RV size. A calcified moderator band is seen in the right ventricle. Normal systolic function. Atria Normal left atrium. Normal right atrium. No doppler evidence for ASD. Mitral Valve There is mild mitral annular calcification. Mild diffuse mitral valve thickening. Trivial mitral valve insufficiency. Tricuspid Valve Normal tricuspid valve. Mild tricuspid valve insufficiency. Right ventricular systolic pressure estimated to be 22 mmHg. Aortic Valve Trisinus/trileaflet aortic valve. Mild focal aortic valve calcification. Pulmonic Valve The pulmonic valve is not well visualized. Great Vessels Normal sized aortic root. Pericardium/Pleural No pericardial effusion. Medication Diluted definity 4ml given slow IV push to enhance endocardial definition. MMode/2D Measurements & Calculations LVIDd: 4.5 cm IVSd: 0.95 cm Ao root diam: 2.8 cm LVIDs: 2.6 cm LVPWd: 1.0 cm RVDd: 2.8 cm FS: 42.0 % LAV(MOD-bp): 9.8 ml LVAd ap4: 22.5 cm2 SV(MOD-sp4): 32.4 ml LAV(MOD-bp) Indexed: 6.4 ml/m2 LVLd ap4: 7.2 cm LAV(MOD-sp2): 10.6 ml EDV(MOD-sp4): 57.2 ml LAV(MOD-sp4): 9.1 ml EDV(sp4-el): 59.9 ml LVAs ap4: 13.1 cm2 LVLs ap4: 5.9 cm ESV(MOD-sp4): 24.8 ml ESV(sp4-el): 24.8 ml EF(MOD-sp4): 56.7 % EF(sp4-el): 58.6 % SV(sp4-el): 35.1 ml LA A4 area: 6.0 cm2 LA dimension(2D): 2.5 cm RA A4 area: 10.5 cm2 Doppler Measurements & Calculations MV E max odilon: 58.2 cm/sec Lat Peak E' Odilon: 4.1 cm/sec Med Peak E' Odilon: 4.5 cm/sec MV A max odilon: 94.4 cm/sec E/E' lat: 14.1 E/E' med: 13.1 MV E/A: 0.62 Ao V2 max: 99.8 cm/sec LV V1 max: 82.5 cm/sec PA V2 max: 135.1 cm/sec Ao max P.0 mmHg LV V1 max P.7 mmHg Ao V2 mean: 74.1 cm/sec Ao mean P.3 mmHg Ao V2 VTI: 19.6 cm TR max odilon: 218.4 cm/sec TR max P.1 mmHg ECHO/Echo Complete W/ Contrast Interpretation Summary The study was technically difficult. Contrast injection was performed. Segmental dysfunction with preserved ejection fraction (see wall motion). The estimated ejection fraction is 55 %. Septal motion consistent with IVCD. A calcified moderator band is seen in the right ventricle. There is mild mitral annular calcification. Mild diffuse mitral valve thickening. Trivial mitral valve insufficiency. Mild tricuspid valve insufficiency. Mild focal aortic valve calcification. Right ventricular systolic pressure estimated to be 22 mmHg. Diastolic function is indeterminate. Compared to the previous transthoracic echocardiogram on 10-13-2020: The overall LV systolic function/LVEF appears to have improved and the previous echocardiographic findi ngs compatible with concerns of a left ventricular apical thrombus are not appreciated at this time . Ordering Physician: Nahomi Mitchell Referring Physician: Jose Adam Performed By: Shonda Bañuelos, MEGAN, RVT
== END ==
PROVIDERS: PCP Internal Medicine; Referring Provider Physician Assistant Medical; Visit Provider Physician Assistant Medical
DX: I25.2 Old myocardial infarction (principal); I50.9 Heart failure, unspecified
CPT/HCPCS: 93306; Q9957; A4216; C8929

== ENCOUNTER 2021-03-23 06:23 | Day surgery (SDC) | payer MEDICARE, SELFPAY ==
--- NOTE | 2021-03-23 06:38 | PCM.HP.BLA ---
History and Physical Date of Admission: 03/23/21 Intake Vital Signs 03/08/21 12:55 Height 5 ft 1 in Weight: 121 lb BMI 22.8 BP 139/81 H Blood Pressure Location Rt brachial Position Sitting Respiration 18 Intake Visit Reasons: 3 month f/u discuss EGD Chief Complaint: 3 month EGD Database Management Specialist Required: No Is patient in pain?: No Allergies perfume Allergy (Verified 03/08/21 12:55) Shortness of breath seasonal Allergy (Uncoded 03/08/21 12:55) Shortness of breath Medications atorvastatin 40 mg tablet 40 mg PO QHS #90 tab 11/05/20 [Rx Confirmed 03/08/21] carvedilol 12.5 mg tablet 12.5 mg PO BID #180 tab 11/05/20 [Rx Confirmed 03/08/21] aspirin 81 mg chewable tablet 81 mg PO DAILY@0800 #30 tab 12/16/20 [Rx Confirmed 03/08/21] pantoprazole 40 mg tablet,delayed release 40 mg PO BID #60 tab 12/16/20 [Rx Confirmed 03/08/21] [facility] Medical History Abnormal electrocardiogram Anxiety Cardiomyopathy Deafness in left ear Foreign body Hypertension Left ventricular thrombus Non-ST elevation (NSTEMI) myocardial infarction Presbycusis Thrombocytosis Surgical History History of left heart catheterization (LHC) (~10/14/20) Family History Other GERD (gastroesophageal reflux disease) Social History Smoking Status: Never smoker alcohol intake: never substance use type: does not use caffeine: Yes HPI HPI HPI: JORDY DALTON, is a 85 F who presents to the office today for follow-up. The patient reports that she has not had dysphagia since her food was pushed through during EGD but she has been shopping over the abdomen the very small bites and only eating soft foods. She has been on her PPI and she is now off of her Eliquis. ROS General General: No weight change or fatigue HEENT HEENT: Yes difficulty swallowing Endo Endocrine: No thyroid disease Musc Musculoskeletal: No back problems or arthritis Cardio Cardiovascular: No pacemaker, heart disease, atrial fibrillation, high blood pressure, heart attack, heart stent, palpitations or chest pain Psych Psychiatric: No depression or anxiety Resp Respiratory: No shortness of breath, No cough, No COPD, No asthma and No emphysema Gastro Gastrointestinal: No abdominal pain, No nausea or vomiting, No diarrhea, No constipation, No blood in stool, No acid reflux, No hemorrhoids, No ulcers, No gallbladder problem and No black,tarry stools Jarred Hematologic: No blood thinners Exam Const General: cooperative Orientation: alert and oriented x3 HENMT Head: normal to inspection Neck Neck: normal visual inspection and full ROM Chest Chest palpation & inspection: normal inspection of the chest Resp Effort & Inspection: normal respiratory effort Auscultation: clear to auscultation bilaterally Cardio Rate: regular rate Rhythm: regular rhythm GI Inspection: non-distended Palpation: soft and nontender Skin General: no rashes or lesions noted Neuro General: patient alert and patient oriented x3 Extrem General: full ROM Psych Appearance: grossly normal Mental Status: mental status grossly normal Assessment and Plan Assessment and Plan (1) Esophageal stenosis: Status: Acute Orders: Orders: EGD Today Plan - Dr. Sadi Summers MD: Patient had a history of food impaction in the esophagus and I had to perform an EGD to push the food through. I would like her to come back for elective EGD with biopsies and possible dilation. I discussed this with her in detail. I discussed the increased risk of perforation or bleeding due to dilation. I explained endoscopy in detail to the patient. I explained the risks including but not limited to stroke or heart attack with anesthesia, perforation of the GI tract, bleeding, infection. I explained that any of these could necessitate further emergency surgery. The patient understands and all questions were answered sufficiently. The patient wishes to proceed with procedure. Sadi Summers MD Pager: [facility] [address] [place] [address], [address] [place] [address] Office: I have seen and reexamined patient and there are no changes.
[2021-03-23 06:52] VITALS: BP 152/82; PULSE 75; RESP 16; TEMP 36.4; O2SAT 75; BMI 23.3
[2021-03-23] MEDS: Lactated Ringers 1,000 ML 15 ML IV (06:57)
--- NOTE | 2021-03-23 07:30 | IMM_PTH ---
PATIENT: JORDY DALTON LOC: EN U#:[id number] AGE/SX: 85/F ROOM: RE03/23/[address]: Dr. Sadi Summers MD : 1935 BED: DIS: 03/23/2021 SPEC #: [id number] RECD: 03/24/21 13:35 STATUS: SIGIFREDO REQ #: [id number] LIZ: 03/23/21 07:[address]: Sadi Summers DEPT: IMMUNOHISTOCHEMISTRY RECD BY: Carlita Wilde ENTERED: 03/24/21 13:36 SP TYPE: IMMUNO OTHR DR: Dr. Jose Deutsch MD Tissues: A - Stomach, NOS Procedures: H Pylori (initial) PHYSICIAN & INSTITUTION [place] [id number] SPECIMEN INFORMATION: Tissue Source: A ? Antrum biopsy Clinical Info: Esophageal stenosis Specimen Number: [id number] CPT code: 65231 METHODOLOGY: Deparaffinized sections of prefer/formalin-fixed tissue or PAP/DQ stained slides are incubated with monoclonal/polyclonal antibodies/oligonucleotide probes. Localization is made via biotin free immunoperoxidase method. Appropriate controls are performed and reacted as expected. Results on target cell population are indicated in the following table: RESULTS: ANTIBODY / CLONE RESULT Block A H Pylori (polyclonal) negative These tests were developed and their performance characteristics determined by [facility]. They may not have been cleared or approved by the U.S. Food and Drug Administration. The FDA has determined that such clearance or approval is not necessary. INTERPRETATION: A. Antrum, biopsy: Negative for Helicobacter pylori organisms. SJ:eva 03/25/2021
--- NOTE | 2021-03-23 07:30 | EGD_PTH ---
PATIENT: JORDY DALTON LOC: EN U#:[id number] AGE/SX: 85/F ROOM: RE03/23/[address]: Dr. Sadi Summers MD : 1935 BED: DIS: 03/23/2021 SPEC #: [id number] RECD: 03/23/21 15:18 STATUS: SIGIFREDO RESlava #: [id number] LIZ: 03/23/21 07:[address]: Sadi Summers DEPT: SURGICAL PATHOLOGY RECD BY: Erlinda Mijares ENTERED: 03/24/21 09:31 SP TYPE: EGD BIOPSY OT DR: Dr. Jose Deutsch MD Tissues: A - Gastric mucous membrane B - Esophagus, NOS Procedures: Special Stain Group II Surgery Specimen Level IV Alcian Blue/PAS (control) HEADER OPERATION: EGD ([facility] PRE-OP DIAGNOSIS: Esophageal stenosis TISSUE SUBMITTED: A ? Antrum biopsy for H. pylori and path, B ? Mid esophagus biopsy for eosinophilic esophagitis MICROSCOPIC DIAGNOSIS A. Antrum biopsy: Moderate chronic gastritis. Focal intestinal metaplasia (goblet cell metaplasia). See microscopic description and comment. B. Mid esophagus, biopsy: Fragments of squamous epithelium with congestion. See comment. SJ:rg 03/25/2021 COMMENT A. The results of immunohistochemistry for Helicobacter pylori will be reported separately ([id number]). Alcian blue/PAS stain with matched control is used in the evaluation of the specimen. B. Increased number of eosinophils consistent with eosinophilic esophagitis are not seen. MICROSCOPIC DESCRIPTION Slides are reviewed. A. The specimen shows fragments of gastric mucosa with chronic inflammatory cell infiltrates in the lamina propria consisting of lymphocytes and plasma cells, consistent with moderate chronic gastritis. Focal intestinal metaplasia (goblet cell metaplasia) is also noted. GROSS DESCRIPTION A - Received in fixative is one container labeled with the patient's name and designated antrum biopsy. The specimen consists of multiple irregular fragments of light cameron soft tissue that in aggregate measure 0.5 x 0.3 x 0.1 cm. The specimen is totally submitted in one cassette. B - Received in fixative is one container labeled with the patient's name and designated mid esophagus biopsy. The specimen consists of multiple irregular fragments of light cameron soft tissue that in aggregate measure 0.5 x 0.4 x 0.1 cm. The specimen is totally submitted in one cassette. / SJ:rg 03/24/21 TC:3 CPT: 45388 x2, 53344
[2021-03-23 07:33] VITALS: BP 103/51; BP 152/82; PULSE 69; RESP 16; TEMP 36; O2SAT 97
[2021-03-23 07:38] VITALS: BP 112/62; BP 152/82; PULSE 65; RESP 16; O2SAT 94
[2021-03-23 07:43] VITALS: BP 122/52; BP 152/82; PULSE 62; RESP 16; O2SAT 93
[2021-03-23 07:48] VITALS: BP 125/51; BP 152/82; PULSE 66; RESP 16; O2SAT 93
[2021-03-23 07:53] VITALS: BP 126/55; BP 152/82; PULSE 65; RESP 16; TEMP 36.2; O2SAT 94
--- NOTE | 2021-03-25 08:08 | OP.EGD_ITS ---
Patient Name: Renaldo Zaidi Procedure Date: 03/23/2021 7:03 AM Date of : 1935 Age: 85 Procedure: Upper GI endoscopy Indications: Dysphagia Providers: Sadi Summers MD Medicines: Monitored Anesthesia Care Patient Profile: This is an 85 year old female. Refer to note in patient chart for documentation of history and physical. Complications: No immediate complications. Estimated blood loss: Minimal. Procedure: Pre-Anesthesia Assessment: - Prior to the procedure, a History and Physical was performed, and patient medications and allergies were reviewed. The patient's tolerance of previous anesthesia was also reviewed. The risks and benefits of the procedure and the sedation options and risks were discussed with the patient. All questions were answered, and informed consent was obtained. Prior Anticoagulants: The patient has taken aspirin, last dose was day of procedure. After reviewing the risks and benefits, the patient was deemed in satisfactory condition to undergo the procedure. After obtaining informed consent, the endoscope was passed under direct vision. Throughout the procedure, the patient's blood pressure, pulse, and oxygen saturations were monitored continuously. The gastroscope was introduced through the mouth, and advanced to the second part of duodenum. The upper GI endoscopy was accomplished without difficulty. The patient tolerated the procedure well. Scope In: 7:25:32 AM Scope Out: 7:29:14 AM Total Procedure Duration Time 0 hours 3 minutes 42 seconds Findings: The esophagus was normal. The stomach was normal. The examined duodenum was normal. Biopsies were taken with a cold forceps in the gastric antrum for Helicobacter pylori testing. Biopsies were taken with a cold forceps in the middle third of the esophagus for histology. Impression: - Normal esophagus. - Normal stomach. - Normal examined duodenum. - Biopsies were taken with a cold forceps for Helicobacter pylori testing. - Biopsies were taken with a cold forceps for histology in the middle third of the esophagus. Recommendation: - Discharge patient to home. - Resume previous diet. - Continue present medications. - Await pathology results. Procedure Code(s): --- Professional --- 99034, Esophagogastroduodenoscopy, flexible, transoral; with biopsy, single or multiple Diagnosis Code(s): --- Professional --- R13.10, Dysphagia, unspecified CPT copyright 2017 [employer]. All rights reserved. The codes documented in this report are preliminary and upon equipment engineer review may be revised to meet current compliance requirements. Sadi Summers MD 03/25/2021 8:07:51 AM This report has been signed electronically. Number of Addenda: 0 Note Initiated On: 03/23/2021 7:03 AM
--- NOTE | 2021-03-25 08:09 | OP.CCLET_ITS ---
03/25/2021 Jose Deutsch MD [address] [place] [address] Re : Upper GI endoscopy procedure for Sakinaperla Zaidi Dear Dr. Deutsch This procedure was performed on Tuesday, March 23, 2021. My impressions and recommendations are as follows: Impressions : - Normal esophagus. - Normal stomach. - Normal examined duodenum. - Biopsies were taken with a cold forceps for Helicobacter pylori testing. - Biopsies were taken with a cold forceps for histology in the middle third of the esophagus. Recommendations : - Discharge patient to home. - Resume previous diet. - Continue present medications. - Await pathology results. My findings are described in the full procedure note, which is enclosed. If I can be of further assistance, please feel free to contact me at Doctor phone number(s): , Work: . Sincerely, Sadi Summers MD 03/25/2021 8:07:51 AM This report has been signed electronically.
== END 2021-03-23 08:30 ==
LOC: EN 06:27 → AC 06:28
PROVIDERS: PCP Internal Medicine; Referring Provider Internal Medicine; Visit Provider Surgery
PROC: 0DJ08ZZ Inspection of Upper Intestinal Tract, Via Natural or Artificial Opening Endoscopic (ICD-10-PCS; CPT 43235; principal; 2021-03-23 07:25)
DX: K29.50 Unspecified chronic gastritis without bleeding (principal); K22.2 Esophageal obstruction; E78.00 Pure hypercholesterolemia, unspecified; I10 Essential (primary) hypertension; I25.2 Old myocardial infarction; I42.9 Cardiomyopathy, unspecified; R13.10 Dysphagia, unspecified; Z79.82 Long term (current) use of aspirin; Z79.899 Other long term (current) drug therapy
CPT/HCPCS: 43239; 88305; 88313; 88342; J7120

== ENCOUNTER 2021-03-26 13:00 | Outpatient (RCR) | payer MEDICARE, SELFPAY ==
[2020-10-13 13:36] VITALS: BMI 23.8
--- NOTE | 2020-10-28 10:56 | HP.PTEVAL_ITS ---
Patient's Visit Information JORDY DALTON is a 85 year old F referred to Physical Therapy by Dr. Lakeisha Villafuerte MD with a diagnosis of GENERALIZED MUSCLE WAKNESS. Date of Evaluation: 10/28/20 Physical Therapist: João Terry, PT, Cert MDT, OCS - Visit Plan Frequency: 2x /Week Duration: 4 Weeks Plan: PT INTERVENTIONS PROGRESSIBE BLANCE PROGRAM,ENDURANCE PROGRAM ,BLE STRENGTHENING AND FUNCTIONAL STRENGTHENING - Subjective This 85 y/o female presents to physical therapy with generalized muscle weakness from extensive hospitalized . Patient admitted 10/13/20 with nausea and vomiting. Patient had several test heart catheter found blood clot in heart and other diagnostics . Patient d/c to 1 week later and developed weakness. Denies paresthesia. Patient major compliant is weakness and fatigue with IADL'S. Patient has difficulty one step. Patient has difficulty housework task so unable to do with being fatigue. Patient has been on soft diet. Patient sleeping okay at night . Patient denies paresthesia/tingling. Patient condition affects QOL. Patient lives one story home with one chair in bathtub. VOCATION: retired. SOCIAL: - Objective POSTURE: mild forward posture. GAIT: reciprocal pattern knee valgus unsteady. NEURO: intact ,denies paresthesia/tingling. BALANCE: GOOD-. STAIRS: one step at time. FLEXABLITY: hams min loss. MMT: quads/hams 4/5,hip flexion 4-/5,hip abd 3+/5 - Balance Scores Functional Gait Assessment Score: 15 % Disability: 50.0000 CATSIB Score (Max score 120 seconds): 35 - Goals Goal 1:: I with HEP Goal Time Frame: 4-6 Weeks Goal 2:: Improve BLE strength oh hip flexion 4/5,abd 4-/5 to improve gait and function. Goal Time Frame: 4-6 Weeks Goal 3:: Patient to improve CATSIB by 10 points or> to improve balance and function. Goal Time Frame: 4-6 Weeks Goal 4:: Patient to improve Functional gait assessment score by 10 points or > to improve balance . Goal Time Frame: 4-6 Weeks Goal 5:: Patient improve LFES score by 10 points or> to improve function. and gait. Goal Time Frame: 4-6 Weeks - Rehabilitation Potential Physical Therapy Diagnosis: This patient has been hospitalized for 1 week developed weakness and fatigue as well as weakness and balance deficits affects ADLS and housework tasks thus will benefit from skilled PT Rehabilitation Potential: Good - Anticipated Interventions Patient/Client Instruction: Educate patient on: Condition, Plan of Care For the Purpose of:: To decrease pain, To increase ROM, To improve muscle performance and motor function, To improve ability to perform ADL's, To increase tolerance to activity/condition/position, To improve performance and independence with ADL's, To improve ability of physical actions for home/community/work/leisure, To decrease soft tissue restriction, To increase flexibility/ROM, To reduce risk of recurrence, To improve ability to perform tasks related to life management Therapeutic Exercise to Include: Strength training, Endurance training, Balance training, Postural training, Dynamic Lumbar Stabilization For the Purpose of:: To decrease pain, To improve health of tissue, To decrease soft tissue restriction, To increase flexibility/ROM, To improve endurance, To improve balance, To reduce risk of recurrence, To improve ability to perform tasks related to life management Thank you for the opportunity to evaluate your patient. For Medicare and Medicare HMO plans, please review the plan of care and approve it. It will need to be FAXED BACK to us at [phone] for Medicare purposes. For Medicare only, by signing this I certify the plan of care. Please let me know if there are questions or concerns regarding this plan of car e. Physician Signature: Date:
--- NOTE | 2020-11-25 10:49 | HP.PTEVAL ---
Patient's Visit Information JORDY DALTON is a 85 year old F referred to Physical Therapy by Dr. Jose Deutsch MD with a diagnosis of GENERALIZED MUSCLE WEAKNESS. Date of Evaluation: 10/28/20 Physical Therapist: João Terry, PT, Cert MDT, OCS - Visit Plan Frequency: 2x /Week Duration: 4 Weeks Plan: cont with poc 2x/wk for 4weeks. PT INTERVENTIONS PROGRESSIVE BLANCE PROGRAM, ENDURANCE PROGRAM, BLE STRENGTHENING AND FUNCTIONAL STRENGTHENING - Subjective This 85 y/o female presents to physical therapy with generalized muscle weakness from extensive hospitalized . Patient admitted 10/13/20 with nausea and vomiting. Patient had several test heart catheter found blood clot in heart and other diagnostics . Patient d/c to 1 week later and developed weakness. Denies paresthesia. Patient major compliant is weakness and fatigue with IADL'S. Patient has difficulty one step. Patient has difficulty housework task so unable to do with being fatigue. Patient has been on soft diet. Patient sleeping okay at night . Patient denies paresthesia/tingling. Patient condition affects QOL. Patient lives one story home with one chair in bathtub. VOCATION: retired. SOCIAL: - Objective POSTURE: mild forward posture. GAIT: reciprocal pattern knee valgus unsteady. NEURO: intact ,denies paresthesia/tingling. BALANCE: GOOD-. STAIRS: one step at time. FLEXABLITY: hams min loss. MMT: quads/hams 4/5,hip flexion 4-/5,hip abd 3+/5 - Balance/Special Test Scores Functional Gait Assessment Score: 17 % Disability: 43.3400 CATSIB Score (Max score 120 seconds): 55 - Goals Goal 1:: I with HEP Goal Time Frame: 4-6 Weeks Goal 2:: Improve BLE strength oh hip flexion 4/5,abd 4-/5 to improve gait and function. Goal Time Frame: 4-6 Weeks Goal 3:: Patient to improve CATSIB by 10 points or> to improve balance and function. Goal Time Frame: 4-6 Weeks Goal 4:: Patient to improve Functional gait assessment score by 10 points or > to improve balance . Goal Time Frame: 4-6 Weeks Goal 5:: Patient improve LFES score by 10 points or> to improve function. and gait. Goal Time Frame: 4-6 Weeks - Rehabilitation Potential Physical Therapy Diagnosis: This patient has been hospitalized for 1 week developed weakness and fatigue as well as weakness and balance deficits affects ADLS and housework tasks thus will benefit from skilled PT Rehabilitation Potential: Good - Anticipated Interventions Patient/Client Instruction: Educate patient on: Condition, Plan of Care For the Purpose of:: To decrease pain, To increase ROM, To improve muscle performance and motor function, To improve ability to perform ADL's, To increase tolerance to activity/condition/position, To improve performance and independence with ADL's, To improve ability of physical actions for home/community/work/leisure, To decrease soft tissue restriction, To increase flexibility/ROM, To reduce risk of recurrence, To improve ability to perform tasks related to life management Therapeutic Exercise to Include: Strength training, Endurance training, Balance training, Postural training, Dynamic Lumbar Stabilization For the Purpose of:: To decrease pain, To improve health of tissue, To decrease soft tissue restriction, To increase flexibility/ROM, To improve endurance, To improve balance, To reduce risk of recurrence, To improve ability to perform tasks related to life management Thank you for the opportunity to evaluate your patient. For Medicare and Medicare HMO plans, please review the plan of care and approve it. It will need to be FAXED BACK to us at [phone] for Medicare purposes. For Medicare only, by signing this I certify the plan of care. Please let me know if there are questions or concerns regarding this plan of care. Physician Signature: Date:
--- NOTE | 2020-12-30 10:28 | HP.PTREVAL_ITS ---
Dr. Jose Deutsch MD, It has been my pleasure to treat JORDY DALTON over the last 18 visits for GENERALIZED MUSCLE WEAKNESS. Please see the progress note below for an update on the physical therapy plan of care! Subjective: Doing alot better .. Objective/Function: POSTURE: WNL. PALAPTION: UNREMARKABLE. MMT: QUADS/HAMS 4/5,HIP FLEXION 4-/5,ANKLE 5/5. GAIT: RECIPROCAL PATTERN. STAIRS: ALTERANTING Plan Plan: cont with poc 1x/wk for 4weeks. PT INTERVENTIONS PROGRESSIVE BLANCE PROGR AM, ENDURANCE PROGRAM, BLE STRENGTHENING AND FUNCTIONAL STRENGTHENING Balance/Gait/Functional tests - Balance/Special Test Scores Functional Gait Assessment Score: 22 % Disability: 26.6700 CATSIB Score (Max score 120 seconds): 65 Lower Extremity Functional Score: 45 Goals Goal 1:: I with HEP Goal Time Frame: 4-6 Weeks Goal Progress: Progressing Goal 2:: Improve BLE strength oh hip flexion 4/5,abd 4-/5 to improve gait and function. Goal Time Frame: 4-6 Weeks Goal Progress: Progressing Goal 3:: Patient to improve CATSIB by 10 points or> to improve balance and function. Goal Time Frame: 4-6 Weeks Goal Progress: Progressing Goal 4:: Patient to improve Functional gait assessment score by 10 points or > to improve balance . Goal Time Frame: 4-6 Weeks Goal Progress: Progressing Goal 5:: Patient improve LFES score by 10 points or> to improve function. and gait. Goal Time Frame: 4-6 Weeks Goal Progress: Progressing Anticipated Interventions Patient/Client Instruction: Educate patient on: Condition, Plan of Care For the Purpose of:: To decrease pain, To increase ROM, To improve muscle performance and motor function, To improve ability to perform ADL's, To increase tolerance to activity/condition/position, To improve performance and independence with ADL's, To improve ability of physical actions for home/community/work/leisure, To decrease soft tissue restriction, To increase flexibility/ROM, To reduce risk of recurrence, To improve ability to perform tasks related to life management Therapeutic Exercise to Include: Strength training, Endurance training, Balance training, Postural training, Dynamic Lumbar Stabilization For the Purpose of:: To decrease pain, To improve health of tissue, To decrease soft tissue restriction, To increase flexibility/ROM, To improve endurance, To improve balance, To reduce risk of recurrence, To improve ability to perform tasks related to life management Please do not hesitate to contact me at [phone] by phone or if you have questions or concerns regarding this new plan of care! Sincerely, João Terry, PT, Cert MDT, OCS
--- NOTE | 2021-01-27 10:36 | HP.PTREVAL ---
Dr. Jose Deutsch MD, It has been my pleasure to treat JORDY DALTON over the last 22 visits for GENERALIZED MUSCLE WEAKNESS. Please see the progress note below for an update on the physical therapy plan of care! Subjective: Doing well no falls Objective/Function: POSTURE: WFL. GAIT: RECIPROCAL PATTERN. STAIRS: ALTERNATING WITH 2 RAILS. MMT: QUADS/HAMS 4/5,HIP FLEXION 4-/5 ,HIP ABD 4-/5 Plan Plan: cont with poc 1x/wk for 4weeks. PT INTERVENTIONS PROGRESSIVE BLANCE PROGRAM, ENDURANCE PROGRAM, BLE STRENGTHENING AND FUNCTIONAL STRENGTHENING Balance/Gait/Functional tests - Balance/Special Test Scores Functional Gait Assessment Score: 27 % Disability: 10.0000 CATSIB Score (Max score 120 seconds): 80 Lower Extremity Functional Score: 45 Goals Goal 1:: I with HEP Goal Time Frame: 4-6 Weeks Goal Progress: Progressing Goal 2:: Improve BLE strength oh hip flexion 4/5,abd 4-/5 to improve gait and function. Goal Time Frame: 4-6 Weeks Goal Progress: Progressing Goal 3:: Patient to improve CATSIB by 10 points or> to improve balance and function. Goal Time Frame: 4-6 Weeks Goal Progress: Progressing Goal 4:: Patient to improve Functional gait assessment score by 10 points or > to improve balance . Goal Time Frame: 4-6 Weeks Goal Progress: Progressing Goal 5:: Patient improve LFES score by 10 points or> to improve function. and gait. Goal Time Frame: 4-6 Weeks Goal Progress: Progressing Anticipated Interventions Patient/Client Instruction: Educate patient on: Condition, Plan of Care For the Purpose of:: To decrease pain, To increase ROM, To improve muscle performance and motor function, To improve ability to perform ADL's, To increase tolerance to activity/condition/position, To improve performance and independence with ADL's, To improve ability of physical actions for home/community/work/leisure, To decrease soft tissue restriction, To increase flexibility/ROM, To reduce risk of recurrence, To improve ability to perform tasks related to life management Therapeutic Exercise to Include: Strength training, Endurance training, Balance training, Postural training, Dynamic Lumbar Stabilization For the Purpose of:: To decrease pain, To improve health of tissue, To decrease soft tissue restriction, To increase flexibility/ROM, To improve endurance, To improve balance, To reduce risk of recurrence, To improve ability to perform tasks related to life management Please do not hesitate to contact me at [phone] by phone or if you have questions or concerns regarding this new plan of care! Sincerely, João Terry, PT, Cert MDT, OCS
--- NOTE | 2021-03-26 13:38 | HP.PTDCSUM ---
It has been my pleasure to treat JORDY DALTON referred by Dr. Jose Deutsch MD, with the diagnosis of GENERALIZED MUSCLE WEAKNESS for a total of 30 visit(s). Discharge Date: 03/26/21 Please see the following information for a summary of their discharge status. Subjective: Doing well ..able to resume normal eating % Improvement: 90 Objective/Function: GAIT: RECIPROCAL PATTERN. BALANCE: GOOD. MMT : 4/5 QUADS/HAMS/HIP/ANKLE. STAIRS:ALTERNATING WITH RAILS Goal 1:: I with HEP Goal Progress: Goal Met Goal 2:: Improve BLE strength oh hip flexion 4/5,abd 4-/5 to improve gait and function. Goal Progress: Goal Met Goal 3:: Patient to improve CATSIB by 10 points or> to improve balance and function. Goal Progress: Goal Met Goal 4:: Patient to improve Functional gait assessment score by 10 points or > to improve balance . Goal Progress: Goal Met Goal 5:: Patient improve LFES score by 10 points or> to improve function. and gait. Goal Progress: Goal Met Plan: D/C Discharge Comments: HEP If there are questions or concerns regarding this patient's physical therapy, please feel free to call me at [phone]. Thank you for the referral of this patient. Sincerely, João Terry, PT, Cert MDT, OCS Balance/Gait/Functional tests - Balance/Special Test Scores Functional Gait Assessment Score: 28 % Disability: 6.6700 CATSIB Score (Max score 120 seconds): 115 Lower Extremity Functional Score: 59
== END 2021-03-26 19:00 | disposition home or self-care (01) ==
LOC: PT 13:00
PROVIDERS: PCP Internal Medicine; Referring Provider Internal Medicine; Visit Provider Internal Medicine
DX: M62.81 Muscle weakness (generalized) (principal); R54 Age-related physical debility
CPT/HCPCS: 97110; 97162; J2405

== ENCOUNTER 2021-05-26 09:11 | Outpatient (CLI) | payer MEDICARE, SELFPAY ==
[2021-05-26 12:33] LABS: AST(SGOT) 25 U/L (15-37); Alanine Aminotransfer ALT/SGPT 26 U/L (13-56); Albumin, Serum 2.8 g/dL (3.2-5.0); Alkaline Phosphatase 77 U/L (45-117); Cholesterol 124 mg/dL (200); Globulin 4.5 g/dL (2.2-4.2); High Density Lipoprotein 51 mg/dL; Protein, Total 7.3 g/dL (6.4-8.2); Triglycerides 65 mg/dL; Very Low Density Lipoprotein 13 mg/dL (5-40)
== END 2021-05-26 23:59 | disposition short-term general hospital (02) ==
LOC: BIMLAB 09:12
PROVIDERS: PCP Internal Medicine; Referring Provider Nurse Practitioner Gerontology; Visit Provider Nurse Practitioner Gerontology
DX: E78.00 Pure hypercholesterolemia, unspecified (principal)
CPT/HCPCS: 36415; 80061; 80076

== ENCOUNTER → 2021-08-13 | Outpatient (CLI) | payer MEDICARE, SELFPAY ==
[2021-08-13 13:03] LABS: Anion Gap 5 (5-15); BUN 23 mg/dL (7-18); BUN/Creat Ratio 18.9 RATIO (10-20); Calcium,Total 8.8 mg/dL (8.5-10.1); Chloride 108 mmol/L (98-107); Creatinine, Serum 1.22 mg/dL (0.55-1.02); EST Glomerular Filtration Rate 44 mL/min (>60); Est Glom Filt Rate - Afr Amer 54 mL/min (>60); Glucose 85 mg/dL (74-106); Potassium 4.4 mmol/L (3.5-5.1); Sodium Level 139 mmol/L (136-145)
[2021-08-13 13:05] LABS: Protein, Urine (Random) 24.5 mg/dL (<11.9); Protein:Creat Ratio 191 mg/g CRE (0-200)
== END | disposition home or self-care (01) ==
LOC: BIMLAB 10:47
PROVIDERS: PCP Internal Medicine; Referring Provider Nurse Practitioner Adult Health; Visit Provider Nurse Practitioner Adult Health
DX: N17.9 Acute kidney failure, unspecified (principal)
CPT/HCPCS: 36415; 80048; 82570; 84156

== ENCOUNTER → 2021-08-30 | Outpatient (CLI) | payer MEDICARE, SELFPAY ==
[2021-08-30 15:26] LABS: Absolute Lymphocyte Count 3.92 X10^3/uL (0.83-4.51); Absolute Neutrophil Count 5.3 X10^3/uL (2.0-7.7); Basophil# 0.05 X10^3/uL; Basophil% 0.5 % (0-1); Eosinophil# 0.42 X10^3/uL; Hematocrit 40.7 % (37-47); Lymphocyte # 3.92 X10^3/ul (0.83-4.51); Lymphocyte % 37.2 % (19-41); Mean Corp Hgb Conc 31.9 g/dL (32-36); Mean Corpuscular Hgb 27.7 pg (27.0-32.0); Mean Corpuscular Volume 86.6 fL (81-99); Mean Platelet Vol. 10.9 fl (6.2-12.0); Monocyte# 0.85 X10^3/uL; Monocyte% 8.1 % (0-10); NRBC Flagged by Analyzer 0 % (0-5); Neutrophil # 5.28 X10^3/uL (2.7-7.7); Neutrophil % 49.9 % (47-70); Platelet Count 319 K/mm3 (150-450); RBC Distribution Width CV 14.7 % (11.6-14.6); RBC Distribution Width SD 47.2 fl (35.1-43.9); White Blood Count 10.6 K/mm3 (4.4-11.0)
== END | disposition home or self-care (01) ==
LOC: BIMLAB 13:46
PROVIDERS: PCP Internal Medicine; Visit Provider Internal Medicine
DX: I10 Essential (primary) hypertension (principal)
CPT/HCPCS: 36415; 85025

== ENCOUNTER → 2021-10-29 | Outpatient (CLI) | payer MEDICARE, SELFPAY ==
[2021-10-29 12:09] LABS: Anion Gap 5 (5-15); BUN 27 mg/dL (7-18); BUN/Creat Ratio 20.9 RATIO (10-20); Calcium,Total 9.5 mg/dL (8.5-10.1); Chloride 108 mmol/L (98-107); Creatinine, Serum 1.29 mg/dL (0.55-1.02); EST Glomerular Filtration Rate 42 mL/min (>60); Est Glom Filt Rate - Afr Amer 50 mL/min (>60); Glucose 97 mg/dL (74-106); Magnesium 2.1 mg/dL (1.6-2.6); Potassium 4.4 mmol/L (3.5-5.1); Sodium Level 139 mmol/L (136-145)
[2021-10-29 12:12] LABS: AST(SGOT) 28 U/L (15-37); Alanine Aminotransfer ALT/SGPT 27 U/L (13-56); Albumin, Serum 2.9 g/dL (3.2-5.0); Alkaline Phosphatase 74 U/L (45-117); Bilirubin, Direct 0.14 mg/dL (0.00-0.30); Cholesterol 165 mg/dL (200); Globulin 4.4 g/dL (2.2-4.2); High Density Lipoprotein 52 mg/dL; Protein, Total 7.3 g/dL (6.4-8.2); Triglycerides 85 mg/dL; Very Low Density Lipoprotein 17 mg/dL (5-40)
[2021-10-30 08:49] LABS: Vitamin B12 346 pg/mL (211-911)
== END | disposition home or self-care (01) ==
LOC: BIMLAB 08:14
PROVIDERS: Nurse Practitioner Gerontology; PCP Internal Medicine; Referring Provider Internal Medicine; Visit Provider Internal Medicine
DX: R25.2 Cramp and spasm (principal); G62.9 Polyneuropathy, unspecified; E78.00 Pure hypercholesterolemia, unspecified
CPT/HCPCS: 36415; 80048; 80061; 80076; 82607; 83735

== ENCOUNTER → 2022-02-22 | Outpatient (CLI) | payer MEDICARE, SELFPAY ==
[2022-02-22 12:20] LABS: Protein, Urine (Random) 17.7 mg/dL (<11.9); Protein:Creat Ratio 220 mg/g CRE (0-200)
[2022-02-22 12:27] LABS: Albumin, Serum 2.8 g/dL (3.2-5.0); BUN 19 mg/dL (7-18); Chloride 107 mmol/L (98-107); Creatinine, Serum 1.27 mg/dL (0.55-1.02); EST Glomerular Filtration Rate 42 mL/min (>60); Est Glom Filt Rate - Afr Amer 51 mL/min (>60); Glucose 88 mg/dL (74-106); Phosphorus 2.9 mg/dL (2.5-4.9); Potassium 3.9 mmol/L (3.5-5.1); Sodium Level 137 mmol/L (136-145)
[2022-02-22 12:30] LABS: Hematocrit 40.8 % (37-47); Hemoglobin 13.7 g/dL (12.0-15.0); Mean Corp Hgb Conc 33.6 g/dL (32-36); Mean Corpuscular Hgb 28.7 pg (27.0-32.0); Mean Corpuscular Volume 85.5 fL (81-99); Mean Platelet Vol. 10.7 fl (6.2-12.0); Platelet Count 350 K/mm3 (150-450); RBC Distribution Width CV 14.9 % (11.6-14.6); RBC Distribution Width SD 46.4 fl (35.1-43.9); Red Blood Count 4.77 M/mm3 (4.2-5.4); White Blood Count 10.3 K/mm3 (4.4-11.0)
[2022-02-22 12:33] LABS: Vitamin D,25 Hydroxy 44.3 ng/mL
[2022-02-22 13:26] LABS: PTHIN 30.1 pg/mL (18.4-80.1)
== END | disposition home or self-care (01) ==
PROVIDERS: PCP Internal Medicine; Visit Provider Internal Medicine Nephrology
DX: N18.32 Chronic kidney disease, stage 3b (principal)
CPT/HCPCS: 36415; 80069; 82306; 82570; 83970; 84156; 85027

== ENCOUNTER 2022-06-19 14:50 | Emergency (ER) | payer MEDICARE, SELFPAY ==
[2022-06-19 14:51] VITALS: BP 177/85; PULSE 77; RESP 16; TEMP 36; O2SAT 95
--- NOTE | 2022-06-19 15:03 | EX.ED.UPPERE ---
HPI History of Present Illness Chief Complaint: Upper Extremity Injury Narrative Narrative: 86-year-old for male, [id number], states that she was going for a walk for exercise at a shopping center. She walked up and down the shopping center, and when they were finished, fell off the edge of the curb, hitting her left elbow. She denies loss of consciousness. No other injury except to her left elbow. She is unsure of her last tetanus immunization. She has pain with movement of her left elbow. No shoulder pain. No wrist pain. She states she can still move her fingers. 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 Shortness of breath on exertion Thrombocytosis Walker as ambulation aid Wears glasses Wears hearing aid Home Medications aspirin 81 mg chewable tablet 81 mg PO DAILY@0800 #30 tabs 09/13/21 [Rx Last Taken Unknown] pantoprazole 40 mg tablet,delayed release 40 mg PO BID #60 tabs 10/08/21 [Rx Last Taken Unknown] atorvastatin 40 mg tablet 40 mg PO QHS #90 tabs 11/01/21 [Rx Last Taken Unknown] cyanocobalamin (vitamin B-12) 500 mcg tablet (Vitamin B-12) 500 mcg PO BID 11/08/21 [History Last Taken Unknown] carvedilol 12.5 mg tablet 12.5 mg PO BID dose increased back up to 12.5 bid #180 tabs 05/18/22 [Rx Last Taken Unknown] gabapentin 100 mg capsule 100 mg PO QHS #30 caps 06/09/22 [Rx Last Taken Unknown] Allergy/AdvReac Type Severity Reaction Status Date / Time perfume Allergy Shortness Verified 06/09/22 14:36 of breath Seasonal Allergies: Uncoded Allergy Shortness Verified 06/09/22 14:36 of breath Family History Other GERD (gastroesophageal reflux disease) Surgical History History of left heart catheterization (LHC) (~10/14/20) Hx of cataract surgery Hx of esophagogastroduodenoscopy Social History Smoking Status: Never smoker alcohol intake: never substance use type: does not use caffeine: Yes ROS ROS ED ROS Narrative Constitutional: No fever, no chills. HEENT: No sore throat. No neck pain. No loss of vision. No rhinorrhea. Cardiovascular: No chest pain. No palpitations. No pedal edema. Respiratory: No cough, no shortness of breath. Abdominal: No abdominal pain. No nausea. No vomiting. Genitourinary: No dysuria. No hematuria. Musculoskeletal: No myalgias. Left elbow pain. Neurologic: No headaches. No dizziness. No lightheadedness. Skin: No rash. No change in color. Psychiatric: No depression. No anxiety. EXAM Physical Exam Narrative Exam Narrative: Afebrile. Vital signs noted. HEENT: Normocephalic. Atraumatic. PERRL, EOMI. Neck soft and supple. No point tenderness or step off. Cardiovascular: Regular rate and rhythm. No murmurs, rubs, or gallops appreciated. Respiratory: No tachypnea. Lungs clear to auscultation bilaterally. Gastrointestinal: Abdomen soft, nontender, with normoactive bowel sounds. No rebound or guarding. Neurological: Awake. Alert. Nonfocal, nonlateralizing. Skin: No rash. Normal color. No pallor. Positive abrasion on the olecranon. Musculoskeletal: No pedal edema. Diffuse tenderness left elbow. No tenderness left shoulder. Palpable radial pulse. Full range of motion of wrist, left.. Const Vital Signs: 06/19/22 14:51 Temperature 96.8 F L Temperature Source Temporal Pulse Rate 77 Respiratory Rate 16 Blood Pressure 177/85 H Blood Pressure Mean 115 Pulse Ox 95 Oxygen Delivery Method Room Air MDM MDM MDM Narrative Medical decision making narrative: X-rays were obtained of the left elbow and 3 views and interpreted by myself. There is a comminuted distal humerus fracture with displacement of the distal humerus portion. I discussed the patient with Dr. Diaz with orthopedics here who is more comfortable with the traumatologist or specialist taking care of this fracture after he had viewed the x-rays. Patient's preference is that she be transferred to [facility] as her [facility] choice. I discussed patient with the transfer line. Patient has been accepted by Dr. Yoon with orthopedics. I also discussed the patient with the emergency physician for ED to ED transfer, Dr. Rios. Temporary orthopedic splint was placed by ED physician using 3 inch orthoglass. Patient examined after application of ulnar gutter splint with good capillary refill. In discussion with orthopedics here, given that she did have a small skin tear, she was administered Ancef for antibiotics. Preoperative labs were obtained and are pending. These will be transferred with the patient in the ED to ED transfer. Patient is in stable condition. Discharge Plan Triage Chief Complaint: Upper Extremity Injury ED Provider: Gabino Rausch Dx/Rx/DC Orders Clinical Impression: Fall, Elbow fracture, left Prescriptions: No Action gabapentin 100 mg capsule 100 mg PO QHS Qty: 30 2RF cyanocobalamin (vitamin B-12) [Vitamin B-12] 500 mcg Tablet 500 mcg PO BID aspirin 81 mg tablet,chewable 81 mg PO DAILY@0800 Qty: 30 11RF pantoprazole 40 mg tablet,delayed release (DR/EC) 40 mg PO BID Qty: 60 11RF atorvastatin 40 mg tablet 40 mg PO QHS Qty: 90 3RF carvedilol 12.5 mg tablet 12.5 mg PO BID Qty: 180 3RF Rx Instructions: must administer with a meal/food Primary Care Provider: Jose Deutsch Referrals: Jose Deutsch MD [Primary Care Provider] - Disposition Disposition: Acute Care Hospital Discharge Location: [facility]
[2022-06-19 15:10] VITALS: BMI 25.8
[2022-06-19] MEDS: Diphth,Pertuss(Acell),Tet Vac 0.5 ML Vial IM (15:24)
--- NOTE | 2022-06-19 15:25 | RAD_ITS ---
INDICATION: Trauma EXAMINATION/TECHNIQUE: X-RAY - LEFT XR Elbow 2 Views COMPARISON: None. FINDINGS: SOFT TISSUES: There is diffuse soft tissue swelling of the distal arm. No radiopaque foreign body. BONES/JOINTS: There is a comminuted fracture of the distal humeral metaphysis with medial and proximal displacement of the distal humerus. The visualized proximal radius and ulna are within normal limits. RAD/Elbow 2 Views IMPRESSION: Distal humeral fracture. Electronically Signed: Amaris Ray MD at 15:50 EST ,
[2022-06-19] MEDS: Morphine 4 MG/ML Syringe IV (15:54)
--- NOTE | 2022-06-19 15:56 | NURSING ---
CALLED [facility] FOR TRANSFER
[2022-06-19] MEDS: Cefazolin 1 GM/50 ML BAG IV (16:02)
[2022-06-19 16:03] LABS: Absolute Lymphocyte Count 3.71 X10^3/uL (0.83-4.51); Absolute Neutrophil Count 16.2 X10^3/uL (2.0-7.7); Basophil# 0.06 X10^3/uL; Basophil% 0.3 % (0-1); Eosinophil# 0.45 X10^3/uL; Eosinophils% 2.1 % (0-5); Hematocrit 40.2 % (37-47); Lymphocyte # 3.71 X10^3/ul (0.83-4.51); Mean Corp Hgb Conc 32.3 g/dL (32-36); Mean Corpuscular Hgb 27.6 pg (27.0-32.0); Mean Corpuscular Volume 85.4 fL (81-99); Mean Platelet Vol. 10.1 fl (6.2-12.0); Monocyte# 1.21 X10^3/uL; Monocyte% 5.6 % (0-10); NRBC Flagged by Analyzer 0 % (0-5); Neutrophil # 16.23 X10^3/uL (2.7-7.7); Neutrophil % 74.4 % (47-70); Platelet Count 379 K/mm3 (150-450); RBC Distribution Width CV 15.2 % (11.6-14.6); RBC Distribution Width SD 47.4 fl (35.1-43.9); Red Blood Count 4.71 M/mm3 (4.2-5.4); White Blood Count 21.8 K/mm3 (4.4-11.0)
[2022-06-19 16:11] LABS: International Normalized Ratio 1.1; Prothrombin Time (Protime)PT. 13.4 SECONDS (11.7-14.9)
[2022-06-19 16:12] LABS: Partial Thromboplast Time 25.9 Seconds (24.1-36.2)
[2022-06-19 16:19] LABS: Anion Gap 10 (5-15); BUN 27 mg/dL (7-18); BUN/Creat Ratio 20.5 RATIO (10-20); Calcium,Total 9.7 mg/dL (8.5-10.1); Chloride 105 mmol/L (98-107); Creatinine, Serum 1.32 mg/dL (0.55-1.02); EST Glomerular Filtration Rate 40 mL/min (>60); Est Glom Filt Rate - Afr Amer 49 mL/min (>60); Estimated Creatinine Clearance 23.75 ml/min; Glucose 124 mg/dL (74-106); Potassium 4.3 mmol/L (3.5-5.1); Sodium Level 139 mmol/L (136-145)
--- NOTE | 2022-06-19 16:43 | NURSING ---
CALLED [facility], ETA IS 90 MIN
[2022-06-19 16:53] VITALS: BP 163/95; PULSE 85; RESP 16; O2SAT 95
[2022-06-19 17:00] VITALS: BP 163/95; PULSE 85; RESP 16; O2SAT 95
== END 2022-06-19 18:37 | disposition short-term general hospital (02) ==
PROVIDERS: Emergency Provider Emergency Medicine; PCP Internal Medicine; Visit Provider Emergency Medicine
DX: S42.402A Unspecified fracture of lower end of left humerus, initial encounter for closed fracture (principal); N18.30 Chronic kidney disease, stage 3 unspecified; I25.2 Old myocardial infarction; W10.1XXA Fall (on)(from) sidewalk curb, initial encounter
CPT/HCPCS: 29125; 73070; 80048; 85025; 85610; 85730; 90715; 96365; 96372; 96375; 99284; A4216

== ENCOUNTER → 2022-07-11 | Outpatient (CLI) | payer MEDICARE, SELFPAY ==
[2022-07-11 15:49] LABS: Absolute Lymphocyte Count 2.75 X10^3/uL (0.83-4.51); Absolute Neutrophil Count 5.8 X10^3/uL (2.0-7.7); Basophil# 0.06 X10^3/uL; Basophil% 0.6 % (0-1); Eosinophil# 0.32 X10^3/uL; Eosinophils% 3.3 % (0-5); Hematocrit 37.5 % (37-47); Hemoglobin 11.4 g/dL (12.0-15.0); Lymphocyte # 2.75 X10^3/ul (0.83-4.51); Lymphocyte % 27.9 % (19-41); Mean Corp Hgb Conc 30.4 g/dL (32-36); Mean Corpuscular Hgb 27.5 pg (27.0-32.0); Mean Corpuscular Volume 90.4 fL (81-99); Mean Platelet Vol. 10.3 fl (6.2-12.0); Monocyte# 0.84 X10^3/uL; Monocyte% 8.5 % (0-10); NRBC Flagged by Analyzer 0 % (0-5); Neutrophil # 5.82 X10^3/uL (2.7-7.7); Neutrophil % 59.2 % (47-70); Platelet Count 472 K/mm3 (150-450); RBC Distribution Width CV 15.8 % (11.6-14.6); RBC Distribution Width SD 51.8 fl (35.1-43.9); Red Blood Count 4.15 M/mm3 (4.2-5.4); White Blood Count 9.8 K/mm3 (4.4-11.0)
[2022-07-11 15:55] LABS: AST(SGOT) 22 U/L (15-37); Alanine Aminotransfer ALT/SGPT 27 U/L (13-56); Albumin, Serum 2.8 g/dL (3.2-5.0); Alkaline Phosphatase 89 U/L (45-117); Bilirubin, Direct 0.19 mg/dL (0.00-0.30); Cholesterol 124 mg/dL (200); Globulin 4.6 g/dL (2.2-4.2); High Density Lipoprotein 46 mg/dL; Protein, Total 7.4 g/dL (6.4-8.2); Triglycerides 92 mg/dL; Very Low Density Lipoprotein 18 mg/dL (5-40)
[2022-07-11 15:58] LABS: Anion Gap 5 (5-15); BUN 26 mg/dL (7-18); BUN/Creat Ratio 21.7 RATIO (10-20); Chloride 108 mmol/L (98-107); EST Glomerular Filtration Rate 45 mL/min (>60); Est Glom Filt Rate - Afr Amer 55 mL/min (>60); Glucose 98 mg/dL (74-106); Potassium 5.1 mmol/L (3.5-5.1); Sodium Level 141 mmol/L (136-145)
== END | disposition home or self-care (01) ==
LOC: BIMLAB 11:38
PROVIDERS: Nurse Practitioner Gerontology; PCP Internal Medicine; Referring Provider Internal Medicine; Visit Provider Internal Medicine
DX: I10 Essential (primary) hypertension (principal); E78.00 Pure hypercholesterolemia, unspecified
CPT/HCPCS: 36415; 80048; 80061; 80076; 85025

== ENCOUNTER → 2022-09-14 | Outpatient (CLI) | payer MEDICARE, SELFPAY ==
[2022-09-14 15:38] LABS: Anion Gap 6 (5-15); BUN 21 mg/dL (7-18); BUN/Creat Ratio 17.8 RATIO (10-20); Calcium,Total 9.6 mg/dL (8.5-10.1); Chloride 108 mmol/L (98-107); Creatinine, Serum 1.18 mg/dL (0.55-1.02); EST Glomerular Filtration Rate 46 mL/min (>60); Est Glom Filt Rate - Afr Amer 56 mL/min (>60); Glucose 96 mg/dL (74-106); Potassium 5.2 mmol/L (3.5-5.1); Sodium Level 140 mmol/L (136-145)
== END | disposition home or self-care (01) ==
LOC: BIMLAB 13:45
PROVIDERS: PCP Internal Medicine; Referring Provider Internal Medicine; Visit Provider Internal Medicine
DX: I10 Essential (primary) hypertension (principal)
CPT/HCPCS: 36415; 80048

== ENCOUNTER → 2022-10-03 | Outpatient (CLI) | payer MEDICARE, SELFPAY ==
[2022-10-03 15:44] LABS: Anion Gap 2 (5-15); BUN 21 mg/dL (7-18); BUN/Creat Ratio 17.6 RATIO (10-20); Calcium,Total 9.3 mg/dL (8.5-10.1); Chloride 108 mmol/L (98-107); Creatinine, Serum 1.19 mg/dL (0.55-1.02); EST Glomerular Filtration Rate 46 mL/min (>60); Est Glom Filt Rate - Afr Amer 55 mL/min (>60); Glucose 95 mg/dL (74-106); Potassium 4.1 mmol/L (3.5-5.1); Sodium Level 140 mmol/L (136-145)
== END | disposition home or self-care (01) ==
LOC: BIMLAB 13:59
PROVIDERS: PCP Internal Medicine; Visit Provider Internal Medicine
DX: N18.30 Chronic kidney disease, stage 3 unspecified (principal)
CPT/HCPCS: 36415; 80048

== ENCOUNTER → 2022-10-13 | Outpatient (CLI) | payer MEDICARE, SELFPAY ==
--- NOTE | 2022-10-13 08:26 | BD_ITS ---
STUDY: DUAL ENERGY X-RAY ABSORPTIOMETRY / DXA REASON FOR EXAM: Female, 87 years old. Post menopausal TECHNIQUE: Bone Mineral Density (BMD) measurements of lumbar spine and bilateral hips were obtained. COMPARISON: None. FINDINGS: Lumbar Spine (L1-L4): g/cm2 (0.726) / T-score (-2.7) / Z-score (0.1) Findings are suggestive of osteoporosis with a high fracture risk. Left Femur Total: g/cm2 (0.723) / T-score (-1.8) / Z-score (0.5) Left Femoral Neck: g/cm2 (0.620) / T-score (-2.1) / Z-score (0.5) Right Femur Total: g/cm2 (0.632) / T-score (-2.5) / Z-score (-0.2) Right Femoral Neck: g/cm2 (0.569) / T-score (-2.5) / Z-score (0.0) BD/Dexa Bone Density Study IMPRESSION: The patient is considered osteoporotic as outlined below according to World Jack Organization (WHO) criteria with a high fracture risk. Reference Information: The T-score is the number of standard deviations above or below the standard which is normal for young adults at their peak bone mineral density. The World Health Organization (WHO) interprets the T-scores as follows: Above -1 Normal bone density Between -1 and -2.5 Osteopenia Equal to / or below -2.5 Osteoporosis As a practical clinical guideline, osteopenia may be graded as follows: Mild -1 through -1.5 Moderate -1.6 through -2.0 Severe -2.1 through -2.4 The Z-score is the number of standard deviations above or below age-matched controls. A Z-score of less than -1.5 would be considered abnormal. References: 1. NIH Osteoporosis and Related Bone Diseases www osteo.org 2. International Society for Clinical Densitometry www iscd.org 3. National Osteoporosis Foundation www nof.org Electronically Signed: Gio Wilks MD at 15:20 EDT ,
== END | disposition home or self-care (01) ==
LOC: OPBD 08:25
PROVIDERS: PCP Internal Medicine; Visit Provider Internal Medicine
DX: Z78.0 Asymptomatic menopausal state (principal)
CPT/HCPCS: 77080

== ENCOUNTER 2022-12-03 16:22 | Emergency (ER) | payer MEDICARE, SELFPAY ==
[2022-12-03 16:24] VITALS: BP 165/91; PULSE 99; RESP 17; TEMP 36.2; O2SAT 97; BMI 23.6
--- NOTE | 2022-12-03 16:33 | CT_ITS ---
STUDY: CT BRAIN WITHOUT CONTRAST REASON FOR EXAM: Female, 87 years old. Head trauma with loss of consciousness and headach RADIATION DOSAGE (If Supplied By Facility): CTDIvol = ( 44.99 ) mGy, DLP = ( 796.11 ) mGycm TECHNIQUE: Transaxial CT imaging of the brain was performed without administration of intravenous contrast material. Individualized dose optimization techniques were used for this CT. COMPARISON: MRI 08/29/2013 FINDINGS: Normal soft tissue structures. Normal calvarium. Normal size ventricles and extra-axial spaces for the patient''s age. Normal white matter tracts of the cerebral hemispheres. Normal basal ganglia and thalami. Normal brainstem. Normal cerebellum. There is no intracranial hemorrhage. There are no findings of an acute ischemic infarction. Normal visualized paranasal sinuses. CT/Brain/Head without Contrast IMPRESSION: Normal unenhanced CT scan of the brain. Electronically Signed: Aman Fajardo MD at 17:56 EDT ,
--- NOTE | 2022-12-03 16:34 | EKG12_ITS ---
Test Reason : SYNCOPE Blood Pressure : / mmHG Vent. Rate : 088 BPM Atrial Rate : 088 BPM P-R Int : 154 ms QRS Dur : 124 ms QT Int : 384 ms P-R-T Axes : 042 -41 085 degrees QTc Int : 464 ms Sinus rhythm with sinus arrhythmia with occasional Premature ventricular complexes Left axis deviation Left bundle branch block Abnormal ECG Confirmed by LIBBY KENNEDY, XOCHITL ([id number]), staff editor VIN GALLEGOS ([id number]) on 12/05/2022 8:56:21 AM Referred By: MICHELLE Confirmed By:DANILO SOUZA MD
--- NOTE | 2022-12-03 16:35 | ED.VIS.FALL ---
HPI HPI - Fall History of Present Illness Chief Complaint: Fall Detail of Chief Complaint: Syncope and collapse Informant: patient Occured/Mechanism Occurred: Hours Mechanism/Context: Yes same level fall Narrative: Patient states she was walking in [facility]. Walk past the [employer] and she went down. Usually ambulates: Without assistance Pain/Injury Pain Location: head Current Severity: Mild Maximum Severity: Moderate Worsened by: Blunt trauma Relieved by: Nothing Associated Symptoms Associated Symptoms: Positive for Loss of consciousness; Negative for Parasthesias, Weakness, Loss of function, Inability to ambulate or Amnesia Length of loss of consciousness: Unknown Narrative Narrative: Patient is an 87-year-old woman with history of cardiomyopathy, non-ST elevation ME, thrombocytosis, hypertension, hypercholesterolemia, stage III chronic kidney disease and neuropathy who presents after syncopal episode. She was at [facility]. She states she walked past the [employer]. Which went to turn she went out. She presently complains of headache. Denies double vision, blurred vision or loss of vision. She is hard of hearing. She states she has problems with her ears. She does have hearing aids. She denies vomiting. She denies neck pain or neck stiffness. She denies paresthesia, anesthesia or motor weakness. She does have deformity of her left hand due to ulnar injury from elbow fracture. Patient denies shortness of breath or difficulty breathing. Patient denies abdominal pain. Patient denies lower back pain. Patient denies right upper or bilateral lower extremity pain. She does complain of pain in the left elbow. She does have abnormality elbow from prior injury. Able to palpate plates. Patient states she is fallen several times. She emphasized that she did not trip. 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 Shortness of breath on exertion Thrombocytosis Traumatic closed displaced fracture of lateral condyle of left elbow Walker as ambulation aid Wears glasses Wears hearing aid Home Medications carvedilol 6.25 mg tablet 6.25 mg PO BID 06/24/22 [History Last Taken Unknown] calcium carbonate 500 mg calcium (1,250 mg) tablet 500 mg PO DAILY 08/26/22 [History Last Taken Unknown] cholecalciferol (vitamin D3) 25 mcg (1,000 unit) tablet 25 mcg PO DAILY 08/26/22 [History Last Taken Unknown] pantoprazole 40 mg tablet,delayed release 40 mg PO BID #60 tabs 10/03/22 [Rx Last Taken Unknown] atorvastatin 40 mg tablet 40 mg PO QHS #90 tabs 10/24/22 [Rx Last Taken Unknown] cyanocobalamin (vitamin B-12) 500 mcg tablet (Vitamin B-12) 500 mcg PO BID 10/31/22 [History Last Taken Unknown] gabapentin 100 mg capsule 100 mg PO BID 3 months #180 caps 10/31/22 [Rx Last Taken Unknown] ibandronate 150 mg tablet (Boniva) 150 mg PO ONCE #10 tabs 10/31/22 [Rx Last Taken Unknown] meloxicam 15 mg tablet 15 mg PO .qd 10/31/22 [History Last Taken Unknown] aspirin 81 mg chewable tablet 81 mg PO DAILY@0800 #30 tabs 11/10/22 [Rx Last Taken Unknown] Allergy/AdvReac Type Severity Reaction Status Date / Time perfume Allergy Shortness Verified 12/03/22 16:24 of breath Seasonal Allergies: Uncoded Allergy Shortness Verified 12/03/22 16:24 of breath Family History Other GERD (gastroesophageal reflux disease) Surgical History History of left heart catheterization (LHC) (~10/14/20) History of open reduction and internal fixation (ORIF) procedure (~05/2022) Hx of cataract surgery Hx of esophagogastroduodenoscopy Social History (Updated 12/03/22 @ 16:[address] Tanvir Love MD) household members: spouse Smoking Status: Never smoker alcohol intake: never substance use type: does not use caffeine: Yes ROS ROS ED Constitutional Constitutional ED: Denies chills, fever(s), subjective, sweats or weight loss Eyes Eyes: Denies blurry vision, change in vision or diplopia ENT ENT ED: Reports other Details: Denies epistaxis or bleeding gums. ; Denies ear pain, rhinorrhea or sore throat Cardiovascular Cardiovascular: Denies chest pain, orthopnea, palpitations, paroxysmal nocturnal dyspnea or racing heartbeat Respiratory/Chest Respiratory/Chest: Denies cough, dyspnea, dyspnea on exertion, orthopnea or paroxysmal nocturnal dyspnea Gastrointestinal Gastrointestinal: Denies abdominal pain, nausea or vomiting Genitourinary Genitourinary ED: Denies dysuria, hematuria or urinary frequency Musculoskeletal Musculoskeletal: Denies arthralgias, back pain, myalgias or neck pain Integumentary Reports other Details: Laceration proximity of the left brow. ; Denies abscess, Abrasions or rash Neurologic Neurologic: Reports headache(s); Denies paresthesias or weakness Endocrine Endocrinology: Denies polydipsia, polyphagia or polyuria Hematologic/Lymphatic Hematologic/Lymphatic: Denies easy bruising EXAM Physical Exam Const Vital Signs: 12/03/22 16:24 12/03/22 16:23 Temperature 97.2 F L Temperature Source Temporal Pulse Rate 99 Respiratory Rate 17 Respiratory Effort Normal Respiratory Depth Normal Respiratory Pattern Normal Blood Pressure 165/91 H Blood Pressure Mean 115 Pulse Ox 97 Oxygen Delivery Method Room Air Room Air Positive well nourished and well developed Constitutional Narrative: Patient pleasant elderly woman who appears in no distress. General Appearance ED: well developed and NAD HEENT Reports normocephalic and TM's normal bilaterally HEENT Narrative: External auditory canal normal. Ears normal. Nares patent with no septal deviation hematoma. No dental trauma. Posterior pharynx is normal. Patient does have a laceration superior to the left brow. There is no palpable depression. There is no clinical signs of basilar skull fracture. trauma Eyes PERRL and EOMs intact bilaterally Eyes Narrative: There is no subconjunctival emergency noted. General Eye ED: Negative for pale conjunctiva or scleral icterus Neck full ROM, no lymphadenopathy and supple Neck Narrative: There is no pain no patient posterior midline. She has full active range of motion. Resp normal respiratory effort, no retractions and clear to auscultation bilaterally Cardio regular rate, regular rhythm, S1 normal heart sound, S2 normal heart sound and no murmurs GI non-tender, non-distended and no masses GI Narrative: There is no pain ovation of the pelvis. Auscultation: normoactive bowel sounds Palpation: soft Back/Spine no CVA tenderness Cervical Spine: Negative for cervical spine tenderness Thoracic Spine / Upper Back: Negative for ROM limited Lumbar Spine / Lower Back: Negative for lumbar spinal tenderness Extremity Extremity Narrative: Patient has swelling and ecchymosis noted left elbow with pain ovation over the olecranon process. There is mild discomfort over the lateral and medial epicondyle. There is no pain ovation over the radial head with supination or pronation. Axillary, median, radial and ulnar function intact. Radial pulses palpable. There is no pain outpatient with the proximal humerus. There is no pain ovation over the distal radius, carpal bones or metacarpal bones. Patient has deformity of left hand due to ulnar nerve injury from prior elbow fracture. Neuro oriented x3, CN's II-XII intact bilaterally and moves all extremities Oxford Coma Scale: document GCS findings Spontaneous Obeys Commands Oriented 15 Sensorium / Orientation: alert Psych mental status grossly normal and thought process normal Skin Lesions: no lesions Rashes: no rashes Trauma: Negative for abrasion MDM MDM MDM Narrative Medical decision making narrative: Since patient had loss of conscious complains of headache is 87 years of age on antiplatelet medicine will obtain CT of the head to rule out intracranial bleed. Because she passed out will obtain EKG to assess for cardiac ischemia in light of her history of cardiomyopathy and non-ST elevation ME. CBC to assess H&H. BMP to assess renal function and electrolytes. If there is evidence of hypokalemia will obtain magnesium level. Patient's facial laceration will require repair. Tetanus was updated. Since patient is not tachycardic, tachypneic or hypoxic and has no respiratory symptoms D-dimer was not obtained to assess for PE. PE is in the differential for syncope however with no symptoms this is not of concern. Since this is not the first time patient is [place] and her work-up reveals no acute abnormality she was not admitted. History & Record Review Additional record(s) reviewed:: Prior outpatient record, Prior ED visit and Prior labs Lab Data Labs: Laboratory Results - last 24 hr 12/03/22 17:03 Sodium 137 Potassium 3.8 Chloride 106 Carbon Dioxide 26.0 Anion Gap 5 BUN 20 H Creatinine 1.31 H Estim Creat Clear Calc 23.48 Est GFR (MDRD) Af Amer 49 L Est GFR (MDRD) Non-Af 41 L BUN/Creatinine Ratio 15.3 Glucose 169 H Calcium 9.7 Total Bilirubin 0.80 AST 29 ALT 27 Alkaline Phosphatase 92 Total Protein 7.6 Albumin 3.0 L Globulin 4.6 H Albumin/Globulin Ratio 0.7 L Radiography Chest X-Ray - ED: Read by ED Physician (Three-view x-ray of the elbow reveals hardware from prior open reduction internal fixation of displaced intracondylar fracture of the left humerus. There is no anterior posterior fat pad. There is no obvious new fracture.) Diagnostic Testing: Clinical Impression(s) from Imaging Studies Brain CT 12/03/22 16:33 IMPRESSION: Normal unenhanced CT scan of the brain. Electronically Signed: Aman Fajardo MD at 17:56 EDT , CT of the head without contrast reveals no evidence of subdural hematoma, epidural hematoma, traumatic subarachnoid hemorrhage or contusion per my independent review and read at 1725. There is no fluid noted in the sinuses either. There is no evidence of fracture. Awaiting formal read by radiologist. EKG Initial EKG: Attestation: I personally reviewed and interpreted this EKG as follows: Interpretation: Sinus Rhythm (Rate is 88. There are premature ventricular beats noted. CO interval is 154 ms. Cures duration is prolonged 124 ms. [place] is to the left. QT is 384 ms. QRS morphology is consistent with a left bundle branch block. There is no evidence of acute ischemic changes. We will compare to prior) Procedures Other Procedures Procedure(s): Patient was prepped draped sterile manner. The wound was anesthetized with 1% lidocaine by local filtration. 1 cc was infiltrated. Wound was cleansed with surgical and and saline. Using 6-0 Ethilon 6 simple interrupted sutures was placed without complication. Discharge Plan Triage Chief Complaint: Fall ED Provider: Tanvir Love Dx/Rx/DC Orders Clinical Impression: Syncope and collapse, Abnormal electrocardiogram, Hypercholesteremia, CKD (chronic kidney disease), stage III, CHI (closed head injury), Laceration of eyebrow and forehead, Contusion of left elbow, initial encounter Instructions: ED Head Injury (Adult), ED FACIAL LACERATION Suture Tape, ED Laceration Minimize Scars Prescriptions: No Action calcium carbonate 500 mg calcium (1,250 mg) tablet 500 mg PO DAILY cholecalciferol (vitamin D3) 25 mcg (1,000 unit) tablet 25 mcg PO DAILY gabapentin 100 mg capsule 100 mg PO BID 90 Days Qty: 180 2RF ibandronate [Boniva] 150 mg tablet 150 mg PO ONCE Qty: 10 1RF cyanocobalamin (vitamin B-12) [Vitamin B-12] 500 mcg tablet 500 mcg PO BID meloxicam 15 mg tablet 15 mg PO .qd Patient Comments: TAKE 1 TABLET BY MOUTH EVERY DAY WITH BREAKFAST carvedilol 6.25 mg tablet 6.25 mg PO BID Rx Instructions: must administer with a meal/food pantoprazole 40 mg tablet,delayed release (DR/EC) 40 mg PO BID Qty: 60 11RF atorvastatin 40 mg tablet 40 mg PO QHS Qty: 90 3RF aspirin 81 mg tablet,chewable 81 mg PO DAILY@0800 Qty: 30 11RF Primary Care Provider: Jose Deutsch Referrals: Jose Deutsch MD [Primary Care Provider] - 5 Days for suture removal Activity Restrictions/Additional Instructions: 1. Clean laceration with peroxide on a Q-tip 3 times a day, then apply bacitracin ointment 2. Apply ice to your elbow 6 times a day Disposition Disposition: Home, Self Care
[2022-12-03] MEDS: Lidocaine 1% (20 ml mdv) 20 ML Vial INFILT (16:58)
[2022-12-03] MEDS: Diphth,Pertuss(Acell),Tet Vac 0.5 ML Vial IM (16:58)
[2022-12-03 17:39] LABS: ALB/GLOB Ratio 0.7 RATIO (0.9-2.4); AST(SGOT) 29 U/L (15-37); Alanine Aminotransfer ALT/SGPT 27 U/L (13-56); Alkaline Phosphatase 92 U/L (45-117); Anion Gap 5 (5-15); BUN 20 mg/dL (7-18); BUN/Creat Ratio 15.3 RATIO (10-20); Calcium,Total 9.7 mg/dL (8.5-10.1); Chloride 106 mmol/L (98-107); Creatinine, Serum 1.31 mg/dL (0.55-1.02); EST Glomerular Filtration Rate 41 mL/min (>60); Est Glom Filt Rate - Afr Amer 49 mL/min (>60); Estimated Creatinine Clearance 23.48 ml/min; Globulin 4.6 g/dL (2.2-4.2); Glucose 169 mg/dL (74-106); Potassium 3.8 mmol/L (3.5-5.1); Protein, Total 7.6 g/dL (6.4-8.2); Sodium Level 137 mmol/L (136-145)
--- NOTE | 2022-12-03 17:48 | RAD_ITS ---
STUDY: X-RAY - LEFT ELBOW REASON FOR EXAM: Female, 87 years old. Injury/Pain TECHNIQUE: 3 view(s) of the elbow. COMPARISON: 06/19/2022. FINDINGS: Compression plates and screws are seen along the medial and lateral surfaces of the distal radial metaphysis, fixating previous fractures into near anatomic alignment and position. No definite acute fracture. No dislocation. The soft tissue structures are unremarkable. RAD/Elbow min 3 Views IMPRESSION: Postsurgical changes. No definite acute abnormalities. Electronically Signed: Aman Fajardo MD at 18:19 EDT ,
[2022-12-03 18:37] VITALS: BP 118/76; PULSE 97; RESP 14; TEMP 36.4; O2SAT 99
== END 2022-12-03 18:39 | disposition home or self-care (01) ==
PROVIDERS: Emergency Provider Emergency Medicine; PCP Internal Medicine; Visit Provider Emergency Medicine
DX: R55 Syncope and collapse (principal); N18.30 Chronic kidney disease, stage 3 unspecified; R94.31 Abnormal electrocardiogram [ECG] [EKG]; E78.00 Pure hypercholesterolemia, unspecified; S09.90XA Unspecified injury of head, initial encounter; S01.81XA Laceration without foreign body of other part of head, initial encounter; S01.112A Laceration without foreign body of left eyelid and periocular area, initial encounter; S50.02XA Contusion of left elbow, initial encounter; I25.2 Old myocardial infarction; Z23 Encounter for immunization; W18.30XA Fall on same level, unspecified, initial encounter
CPT/HCPCS: 12001; 70450; 73080; 80048; 80053; 90471; 90715; 93005; 99285

== ENCOUNTER → 2023-01-02 | Outpatient (CLI) | payer MEDICARE, SELFPAY ==
[2023-01-02 13:05] LABS: AST(SGOT) 30 U/L (15-37); Alanine Aminotransfer ALT/SGPT 26 U/L (13-56); Alkaline Phosphatase 101 U/L (45-117); Bilirubin, Direct 0.17 mg/dL (0.00-0.30); Cholesterol 120 mg/dL (200); Globulin 4.8 g/dL (2.2-4.2); High Density Lipoprotein 49 mg/dL; Protein, Total 7.8 g/dL (6.4-8.2); Triglycerides 96 mg/dL; Very Low Density Lipoprotein 19 mg/dL (5-40)
== END | disposition home or self-care (01) ==
LOC: BIMLAB 10:05
PROVIDERS: Nurse Practitioner Gerontology; PCP Internal Medicine; Referring Provider Physician Assistant Medical; Visit Provider Physician Assistant Medical
DX: E78.00 Pure hypercholesterolemia, unspecified (principal)
CPT/HCPCS: 36415; 80061; 80076

== ENCOUNTER 2023-01-06 07:17 | Day surgery (SDC) | payer MEDICARE, SELFPAY ==
[2023-01-05 08:28] VITALS: BMI 23.0
--- NOTE | 2023-01-06 09:29 | CL.IE_ITS ---
Patient: JORDY DALTON Study Date: 01/06/2023 Performing: Moises Squires MD : [id number] Age: 87 Gender: female PROCEDURES PERFORMED [id number])INSERTION OF LOOP RECORDER INDICATIONS PROCEDURE DETAILS The patient was brought to the Catheterization Lab in the postabsorptive nonsedated state. Informed consent was obtained prior to the procedure. Local anesthetic was given subcutaneously to the left upper chest area with Lidocaine 2%. Incision was made to the left upper chest. ICM Loop Recorder was inserted. Steri-strips applied to Lt chest area. The patient tolerated the procedure well. 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
== END 2023-01-06 10:35 | disposition home or self-care (01) ==
LOC: CLSP 07:18
PROVIDERS: PCP Internal Medicine; Referring Provider Internal Medicine Cardiovascular Disease; Visit Provider Internal Medicine Cardiovascular Disease
DX: R55 Syncope and collapse (principal); I42.8 Other cardiomyopathies; N18.30 Chronic kidney disease, stage 3 unspecified; I25.2 Old myocardial infarction; E78.00 Pure hypercholesterolemia, unspecified; F41.9 Anxiety disorder, unspecified; I12.9 Hypertensive chronic kidney disease with stage 1 through stage 4 chronic kidney disease, or unspecified chronic kidney disease; I25.10 Atherosclerotic heart disease of native coronary artery without angina pectoris; Z79.899 Other long term (current) drug therapy; Z79.82 Long term (current) use of aspirin; Z95.0 Presence of cardiac pacemaker
CPT/HCPCS: 33285; 99152; J7040

== ENCOUNTER → 2023-01-16 | Outpatient (CLI) | payer MEDICARE, SELFPAY ==
--- NOTE | 2023-01-16 12:54 | CDU_ITS ---
Reason For Study: lightheadedness Rt. Velocities/BP Lt. Velocities/BP Prox CCA 82.5/12.6 cm/sec. Prox CCA 88.1/14.5 cm/sec. Mid CCA 89.1/16.3 cm/sec. Mid CCA 69.2/15.4 cm/sec. Dist CCA 74.0/12.6 cm/sec. Dist CCA 70.2/15.4 cm/sec. Prox ICA 31.7/9.0 cm/sec. Prox ICA 58.9/12.6 cm/sec. Mid ICA 60.4/16.8 cm/sec. Mid ICA 68.3/15.4 cm/sec. Dist ICA 77.8/17.3 cm/sec. Dist ICA 81.7/22.4 cm/sec. Rt. ICA/CCA = .9. Lt. ICA/CCA = 1.2. Prox ECA 90.0/7.8 cm/sec. Prox ECA 67.4/7.8 cm/sec. Rt. Vert. 40.9/5.0 cm/sec. Lt. Vert. 67.4/17.9 cm/sec. Right Extracranial There is homogeneous, smooth atherosclerotic plaque noted in the right common carotid artery. There is heterogeneous, smooth atherosclerotic plaque noted in the right internal carotid artery. There is heterogeneous, irregular atherosclerotic plaque noted in the right external carotid artery. Antegrade flow is noted in the right vertebral artery. Left Extracranial There is homogeneous, smooth atherosclerotic plaque noted in the left common carotid artery. There is heterogeneous, irregular atherosclerotic plaque noted in the left internal carotid artery. There is heterogeneous, smooth atherosclerotic plaque noted in the left external carotid artery. Antegrade flow is noted in the left vertebral artery. Procedure Carotid Duplex [id number]. This is a Carotid Duplex examination using B-mode, color flow and specral Doppler. The exam was diagnostic. Exam performed in department. VL/Carotid Duplex Ultrasound Interpretation Summary Mild (<50%) stenosis right extracranial internal carotid. Mild (<50%) stenosis left extracranial internal carotid. Patent and antegrade vertebrals bilaterally. Ordering Physician: Ely Holguin Performed By: Roddy Cota RVT
--- NOTE | 2023-01-16 12:54 | ECHOCS_ITS ---
Reason For Study: CAD/ASHD Procedure This was a 2D Doppler, Color Flow transthoracic echocardiogram. The study was technically difficult. Due to body habitus. Contrast injection was performed. Exam performed in department. Left Ventricle Normal size and thickness. The left ventricular ejection fraction is 45 %. Normal diastology for age. Apical and mid to distal anterior septal hypokinesis. Right Ventricle Normal right ventricle. Atria The left and right atria are normal. Mitral Valve Mild mitral annular calcification. Tricuspid Valve Trivial tricuspid valve insufficiency. Aortic Valve Aortic sclerosis, no stenosis. Pulmonic Valve The pulmonic valve is not well visualized. Great Vessels Normal sized aortic root. Pericardium/Pleural No pericardial effusion. Medication Diluted definity 2.0ml given slow IV push to enhance endocardial definition. MMode/2D Measurements & Calculations LVIDd: 3.8 cm IVSd: 0.88 cm Ao root diam: 3.1 cm LVIDs: 2.8 cm LVPWd: 0.86 cm RVDd: 3.4 cm FS: 24.4 % LAV(MOD-bp): 27.5 ml LVAd ap4: 23.1 cm2 LVAd ap2: 22.5 cm2 LAV(MOD-bp) Indexed: 17.3 ml/m2 LVLd ap4: 7.7 cm LVLd ap2: 7.9 cm LAV(MOD-sp2): 22.9 ml EDV(MOD-sp4): 58.4 ml EDV(MOD-sp2): 53.2 ml LAV(MOD-sp4): 29.9 ml EDV(sp4-el): 59.1 ml EDV(sp2-el): 54.4 ml LVAs ap4: 14.3 cm2 LVAs ap2: 13.7 cm2 LVLs ap4: 6.8 cm LVLs ap2: 6.6 cm ESV(MOD-sp4): 25.7 ml ESV(MOD-sp2): 23.2 ml ESV(sp4-el): 25.6 ml ESV(sp2-el): 24.0 ml EF(MOD-sp4): 56.0 % EF(MOD-sp2): 56.3 % EF(sp4-el): 56.8 % SV(MOD-sp4): 32.7 ml SV(MOD-sp2): 30.0 ml SV(sp4-el): 33.6 ml LA A4 area: 12.0 cm2 LA dimension(2D): 2.7 cm RA A4 area: 11.4 cm2 Time Measurements MV dec time: 0.40 sec Doppler Measurements & Calculations MV E max odilon: 56.2 cm/sec Lat Peak E' Odilon: 5.8 cm/sec Med Peak E' Odilon: 5.6 cm/sec MV A max odilon: 97.2 cm/sec E/E' lat: 9.7 E/E' med: 10.1 MV E/A: 0.58 MV V2 max: 102.5 cm/sec Ao V2 max: 111.3 cm/sec MV max P.2 mmHg MV dec slope: 141.2 cm/sec2 Ao max P.0 mmHg MV V2 mean: 53.4 cm/sec Ao V2 mean: 80.0 cm/sec MV mean P.4 mmHg Ao mean P.9 mmHg MV V2 VTI: 26.4 cm Ao V2 VTI: 26.5 cm AV (velocity ratio): 0.63 LV V1 max: 75.0 cm/sec PA V2 max: 127.1 cm/sec TR max odilon: 240.8 cm/sec LV V1 max P.3 mmHg PA V2 mean: 79.6 cm/sec TR max P.2 mmHg LV V1 mean P.5 mmHg LV V1 mean: 58.1 cm/sec LV V1 VTI: 16.8 cm ECHO/Echo Complete W/ Contrast Interpretation Summary The left ventricular ejection fraction is 45 %. Apical and mid to distal anterior septal hypokinesis Ordering Physician: Ely Holguin Referring Physician: Jose Deutsch Performed By: Bess Stapleton RDCS, RVT
== END | disposition home or self-care (01) ==
LOC: CVS 12:54
PROVIDERS: PCP Internal Medicine; Referring Provider Internal Medicine Cardiovascular Disease; Visit Provider Internal Medicine Cardiovascular Disease
DX: I51.3 Intracardiac thrombosis, not elsewhere classified (principal); R42 Dizziness and giddiness; R29.6 Repeated falls; I25.10 Atherosclerotic heart disease of native coronary artery without angina pectoris; E78.5 Hyperlipidemia, unspecified
CPT/HCPCS: 93306; 93880; Q9957; A4216; C8929

== ENCOUNTER → 2023-03-08 | Outpatient (CLI) | payer MEDICARE, SELFPAY ==
--- NOTE | 2023-03-08 12:42 | CT_ITS ---
STUDY: CT CHEST WITH CONTRAST REASON FOR EXAM: Female, 87 years old. ASHD. Cardiac over read examination. RADIATION DOSAGE (If Supplied By Facility): CTDIvol = ( 30.4 ) mGy, DLP = ( 1172.69 ) mGycm TECHNIQUE: Transaxial imaging was performed following intravenous administration of IV 50mL Isovue-370. Individualized dose optimization techniques were used for this CT. COMPARISON: No relevant priors. FINDINGS: CHEST There are increased interstitial markings more prominent in the right upper lobe and both lung bases with evidence of bronchiectasis. This is in keeping with the interstitial scarring. There is no demonstrated pleural abnormality. There are calcifications of the coronary arteries. Normal mediastinum. Normal hilar regions. Normal unenhanced pulmonary arteries. There is atherosclerotic calcification of the aortic arch. Fatty infiltration of the liver. There is no demonstrated abnormality of the visualized upper abdomen. CT/Limited Chest CT Cardiac Only IMPRESSION: Coronary artery calcification. Findings in keeping with pulmonary scarring as described. Electronically Signed: Gio Wilks MD at 9:13 EST ,
[2023-03-08 12:47] VITALS: BP 166/88; PULSE 72; RESP 16; TEMP 36.6; O2SAT 99; BMI 22.1
[2023-03-08 13:09] LABS: CREATININE FINGERSTICK 1.2 mg/dL (0.55-1.02)
[2023-03-08 13:20] VITALS: BP 166/88; PULSE 72
[2023-03-08] MEDS: Nitroglycerin SL (ED/IMG/CATH) 0.4 MG TABLET SL (13:20)
[2023-03-08 13:28] VITALS: BP 155/77; PULSE 76; RESP 16; O2SAT 98
--- NOTE | 2023-03-13 16:26 | CCTA.WCONT ---
CCTA w/Cont Coronary Arteries Date of Study:: 03/08/23 Reduced ejection fraction Coronary Calcium Scoring: High-resolution Computed Tomographic imaging of the chest was performed on [03/08/2023], with particular attention paid to the coronary arteries. Intravenous contrast agent was administered per protocol and images reconstructed and displayed. LEFT MAIN CORONARY ARTERY: Arises from the left coronary cusp with no significant stenosis present [] LEFT ANTERIOR DESCENDING CORONARY ARTERY: No significant atherosclerotic plaquing noted [] LEFT CIRCUMFLEX CORONARY ARTERY: Nondominant vessel with no significant atherosclerotic plaquing or calcification present [] RIGHT CORONARY ARTERY: Dominant vessel with minimal atherosclerotic cardiovascular disease present CORONARY CALCIUM SCORE: Not performed Conclusion: Coronary CT angiography with no significant atherosclerotic plaquing present []
== END | disposition home or self-care (01) ==
LOC: CT 12:40
PROVIDERS: PCP Internal Medicine; Referring Provider Nurse Practitioner Gerontology; Visit Provider Nurse Practitioner Gerontology
DX: I25.10 Atherosclerotic heart disease of native coronary artery without angina pectoris (principal); I50.20 Unspecified systolic (congestive) heart failure
CPT/HCPCS: 75574; 76380; Q9967

== ENCOUNTER → 2023-04-25 | Outpatient (CLI) | payer MEDICARE, SELFPAY ==
--- OUTSIDE RECORDS SUMMARY | 2023-04-25 07:35 | XMS RPT_ITS | CCD ---
Author Name Unknown Address [address] [place] [address] Organization [facility] Care Team Providers Care Information Systems Security Analyst Name Role Phone Jose Deutsch MD Primary Care Provider [phone] KAUSHIK CORONA Consulting Unavai lable DINICOLA, KAUSHIK MC Attending Unavai lable KAUSHIK CORONA Admitting Unavai lable DINICOLA, KAUSHIK MC Attending Unavaramone labGIA RichardsonONGBE Eric Primary Care Unavailable KAUSHIK CORONA Attending Tamikavaramone labGIA RichardsonONGBE Eric Primary Care Unavailable KAUSHIK CORONA Attending Unavai labIRENE RichardsonEWONGBE Eric Primary Care Unavailable Jose Deutsch MD Primary Care Provider [phone] Allergies Allergy Classification Reported Allergen(s) Allergy Type Date of Onset Reaction(s) Facility (5 sources) Ethanol; Translations: [ALCOHOL] Drug Allergy 3 Itching [facility] (5 sources) Seasonal allergy; Translations: [SEASONAL ALLERGIES] Allergy to substance 3 Itching [facility] (5 sources) Perfume; Translations: [PERFUME] Drug Allergy 1 Shortness of Breath [facility] Medications Completed/Discontinued Medications Medication Drug Class(es) Dates Sig (Normalized) Sig (Original) aspirin 81 mg delayed release oral tablet (4 sources) Platelet Aggregation Inhibitor, Nonsteroidal Anti-inflammatory Drug take 1 tablet by mouth once daily aspirin, enteric coated (ASPIRIN, ENTERIC COATED) 81 mg EC tablet Take 1 tablet by mouth once daily. 0 Active Problems Active Problems Problem Classification Problem Date Documented Da te Episodic/Chronic Essential hypertension (4 sources) Hypertensive disorder; Translations: [Essential (primary) hypertension] Onset: 06-20-2022 06-21-2022 Chronic Fracture of upper limb (4 sources) Closed fracture of lower end of humerus; Translations: [Other displaced fracture of lower end of left humerus, subsequent encounter for fracture with routine healing] Onset: 06-19-2022 Episodic Genitourinary symptoms and ill-defined conditions (4 sources) Female stress incontinence; Translations: [Stress incontinence (female) (male)] Onset: 12-27-2006 12-27-2006 Chronic Menopausal disorders (4 sources) Atrophic vaginitis; Translations: [Postmenopausal atrophic vaginitis] Onset: 09-17-2009 09-17-2009 Chronic Osteoporosis (4 sources) Senile osteoporosis; Translations: [Age-related osteoporosis without current pathological fracture] Onset: 12-27-2006 12-27-2006 Chronic Other injuries and conditions due to external causes (2 sources) Ulnar neuropraxia; Translations: [Injury of ulnar nerve at forearm level, left arm, subsequent encounter] Episodic Other injuries and conditions due to external causes (1 source) Injury of ulnar nerve at forearm level, left arm, subsequent encounter; Translations: [Neurapraxia of left ulnar nerve, subsequent encounter] Onset: 09-28-2022 Episodic Past or Other Problems Problem Classification Problem Date Documented Da te Episodic/Chronic E Codes: Fall (1 source) Unspecified fall, initial encounter; Translations: [Fall, initial encounter] Onset: 06-19-2022 Episodic Genitourinary symptoms and ill-defined conditions (4 sources) Urgent desire to urinate; Translations: [Urgency of urination] Onset: 12-27-2006 12-27-2006 Episodic Other bone disease and musculoskeletal deformities (4 sources) Disorder of skeletal system; Translations: [Disorder of bone, unspecified] Onset: 09-17-2009 09-17-2009 Episodic Other gastrointestinal disorders (4 sources) Constipation; Translations: [Constipation, unspecified] Onset: 12-27-2006 12-27-2006 Episodic Residual codes; unclassified (4 sources) At risk of delirium; Translations: [Other specified personal risk factors, not elsewhere classified] Onset: 06-20-2022 06-21-2022 Episodic Results Test Name Value Interpretation Reference Range Facil ity Vital Signs Date Time Vital Sign Value Performing Clinician Faci lity 09-28-2022 10:54-0400 Body height 157.5 cm Kaushik Corona MD Work Phone: [facility] 09-28-2022 10:54-0400 Body weight 56.7 kg Kaushik Corona MD Work Phone: [facility] 09-28-2022 10:54-0400 Respiratory rate 16 /min Kaushik Corona MD Work Phone: [facility] 08-17-2022 14:16-0400 Body height 160 cm Kaushik Corona MD Work Phone: [facility] 08-17-2022 14:16-0400 Body weight 56.7 kg Kaushik Corona MD Work Phone: [facility] 08-17-2022 14:16-0400 Respiratory rate 18 /min Kaushik Corona MD Work Phone: [facility] Encounters Encounter Date Encounter Type Care Provider Facility Start: 10-31-2022 Telephone encounter Jose Deutsch MD Work Phone: Geriatrics Procedures Date Procedure Procedure Detail Performing Clinician Start: 09-28-2022 Radex elbow 2 views Sudarshan Corona MD Work Phone: Start: 08-17-2022 Radex elbow 2 views Sudarshan Corona MD Work Phone: Start: 06-20-2022 Antibody screen SABINA CORONA Plan of Treatment Date Care Activity Detail Author Start: 06-21-2025 DIABETES SCREEN DIABETES SCREEN [facility] Start: 12-23-2022 Influenza vaccination INFLUENZA (#1) [facility] Start: 04-24-2022 ADVANCE DIRECTIVE DISCUSSION ADVANCE DIRECTIVE DISCUSSION [facility] Start: 04-24-2022 DEPRESSION ASSESSMENT DEPRESSION ASS ESSMENT [facility] Start: 09-02-2021 COVID-19 VACCINE (5 - Booster for Moderna series) COVID-19 VACCINE (5 - Booster for Moderna series) [facility] Start: 09-02-2021 COVID-19 VACCINE (5 - Moderna series) COVID-19 VACCINE (5 - Moderna series) [facility] Start: 07-30-1999 PNEUMOCOCCAL: 65+ (1 - PCV) PNEUMOCOCCAL: 65+ (1 - PCV) [facility] Start: 1984 SHINGRIX VACCINE (1 of 2) SIMS GRIX VACCINE (1 of 2) [facility] Start: 1953 Urine microalbumin profile DTAP,TDAP ,TD (1 - Tdap) [facility] Payers Date Payer Category Payer Medicare A[employer] MEDICARE A ETNA MEDICARE PPO [id number] 2009-Present [phone] [address] [place] [address] PPO [id number] 2009 Medicare [id number] Social History Date Type Detail Facility Start: 06-19-2022 End: 07-06-2022 Tobacco smoking status NHIS Never smoked tobacco [facility] Start: 06-20-2022 End: 09-28-2022 Alcohol intake Current non-drinker of alcohol (finding) [facility] Start: 1935 Sex Assigned At Not on file [facility] Start: 07-06-2022 Tobacco use and exposure Smoke less tobacco non-user [facility] Start: 09-28-2022 History of Social function [facility] Start: 09-28-2022 Tobacco use panel [facility] National Score (1-10 0), lower number is lower risk 62 [facility] Medical Equipment Procedure Code Equipment Code Equipment Origin al Text Equipment Identifier Dates Plate Lcp Combi Short Stainless Steel 72mm Bone 1 Hole Variable Angle Round - [id number] Start: 06-20-2022 Screw Lcp 2.7mm T8 Stainless Steel 34mm Bone Variable Angle Lock Self Tap - [id number] Start: 06-20-2022 Clinical Notes 06-20-2022 to 10-31-2022 Telephone Encounter - Khalida Romero - 10/31/2022 3:23 PM PHILTKaushik Corona MD - 09/28/2022 11:24 AM EDTPatient Kisha Corona MD - 08/17/2022 3:30 PM EDT Note Date & Type Note Facility 10-31-2022 Miscellaneous Notes Spoke with patient. Declined consult documented in this encounter [facility] 09-28-2022 Note HNO ID: [id number] Author: Kaushik Corona MD Service: ? Author Type: Physician Type: Progress Notes Filed: 09/28/2022 11:49 AM Note Text: ORTHOPAEDIC OFFICE NOTE CHIEF COMPLAINT: Left elbow injury HISTORY OF PRESENT ILLNESS: Renaldo Zaidi is a 87 year old female who presents for reevaluation after open reduction internal fixation left distal humerus fractures 06/20/2022. Denies pain of the left elbow with continued progressive functional gains. Notes prominence of hardware laterally without skin breakdown. Continues to have paresthesias in the ring and small digits and palm of the hand. Uses Coban to assist small digit abduction which has improved since last visit. No new injury mechanism. No feeling of instability in the elbow. Accompanied by . Reviewed nursing note and current pain scale. PAST MEDICAL HISTORY Diagnosis Date - Abnormal glandular Papanicolaou smear of cervix 04/24/1989 Abn. Pap smear (cervix) - Heart attack (HCC) - Left arm pain - Mixed hyperlipidemia Hyperlipidemia - Osteoporosis, unspecified - Postmenopausal atrophic vaginitis Atroph. vaginitis/post-men. - Seasonal allergies PAST SURGICAL HISTORY Procedure Laterality Date - BIOPSY BREAST OPEN INCISIONAL Bx of breast, incisional right side - PAST SURGICAL HISTORY OF ` MIDDLE EAR SURG - PAST SURGICAL HISTORY OF 04/24/1989 CRYOCAUTERY for HPV cevicitis - PAST SURGICAL HISTORY OF Left 06/20/2022 left humerus fracture FAMILY HISTORY Problem Relation Age of Onset - Heart Father - Heart Brother - Heart Paternal Uncle - Hypertension Father - Cancer Mother UTERINE Social History Tobacco Use - Smoking status: Never - Smokeless tobacco: Never Substance Use Topics - Alcohol use: No - Drug use: No MEDICATIONS: Current Outpatient Medications Medication Sig - aspirin, enteric coated (ASPIRIN, ENTERIC COATED) 81 mg EC tablet Take 1 tablet by mouth once daily. - atorvastatin (LIPITOR) 40 mg tablet Take 40 mg by mouth daily at bedtime. - pantoprazole DR (PROTONIX) 40 mg tablet Take 40 mg by mouth twice daily. - gabapentin (NEURONTIN) 100 mg capsule Take 100 mg by mouth daily at bedtime. - carvedilol (COREG) 6.25 mg tablet Take 6.25 mg by mouth twice daily with meals. - cyanocobalamin (VITAMIN B-12) 500 mcg tablet Take 1 tablet by mouth twice daily. - calcium, elemental, tab Take 1 tablet by mouth twice daily. - CENTRUM SILVER TAB Take one(1) tablet daily. No current facility-administered medications for this visit. ALLERGIES: ALLERGIES Allergen Reactions - Alcohol Itching - Perfume Shortness of Breath - Seasonal Allergies Itching PHYSICAL EXAMINATION: Resp 16 Ht 5' 2 (1.58m) Wt 125 lb (56.7kg) BMI 22.86 kg/(m2). General Appearance: Well appearing, alert, in no acute distress, well-hydrated, well nourished. Skin: Skin color, texture, turgor normal, no suspicious rashes or lesions. Extremities: Left elbow surgical incision healed. Left arm and forearm compartments soft and compressible. Edema completely resolved, posterolateral plate visible and palpable through skin without skin tenting or skin at risk. Demonstrates active extension within 15 degrees of full and flexion to 110 degrees. Able to touch face and top of head with left hand. Demonstrates ability to adduct small finger which was previously absent. Demonstrates full left forearm pronation and supination with no crepitance. Peripheral Pulses: Normal. Neurologic: Intact light touch sensation left upper extremity; mild improvement of the ring and small digits though paresthesias still predominate. IMAGES: Recent Results (from the past 36 hour(s)) XR ELBOW GENERAL 2V AP/LAT LEFT Narrative AP and lateral views left elbow demonstrate no change in position of hardware stabilizing the supracondylar distal humerus fractures. There is continued bone activity with evidence of healing in both planes. The radiocapitellar and ulnohumeral joints are maintained. No new fracture identified. ASSESSMENT AND PLAN: 1. Other closed displaced fracture of distal end of left humerus with routine healing, subsequent encounter - ICD9: V54.11, ICD10: S42.492D (primary diagnosis) 2. Neurapraxia of left ulnar nerve, subsequent encounter - ICD9: V58.89, 955.2, ICD10: S54.02XD Functional Plan: No restrictions with weightbearing or range of motion left upper extremity; may push off on a chair as tolerated to independently rise. Assistance Devices: Discussed elbow sleeve for protection as desired based on prominence of hardware; discussed hardware removal as an option, though patient wants to avoid another procedure. Physical/Occupational Therapy: None, patient very active with home exercise. Wound Care: None. Pain Control: No change in pain regimen recommended this office visit. Fragility Fracture: Previously addressed. Additional: Ulnar nerve function appears mild t (more content not included)... [facility] 09-28-2022 History of Presen t illness Narrative Images from the original note were not included. ORTHOPAEDIC OFFICE NOTE CHIEF COMPLAINT: Left elbow injury HISTORY OF PRESENT ILLNESS: Renaldo Zaidi is a 87 year old female who presents for reevaluation after open reduction internal fixation left distal humerus fractures 06/20/2022. Denies pain of the left elbow with continued progressive functional gains. Notes prominence of hardware laterally without skin breakdown. Continues to have paresthesias in the ring and small digits and palm of the hand. Uses Coban to assist small digit abduction which has improved since last visit. No new injury mechanism. No feeling of instability in the elbow. Accompanied by . Reviewed nursing note and current pain scale. PAST MEDICAL HISTORY Diagnosis Date Abnormal glandular Papanicolaou smear of cervix 04/24/1989 Abn. Pap smear (cervix) Heart attack (HCC) Left arm pain Mixed hyperlipidemia Hyperlipidemia Osteoporosis, unspecified Postmenopausal atrophic vaginitis Atroph. vaginitis/post-men. Seasonal allergies PAST SURGICAL HISTORY Procedure Laterality Date BIOPSY BREAST OPEN INCISIONAL Bx of breast, incisional right side PAST SURGICAL HISTORY OF ` MIDDLE EAR SURG PAST SURGICAL HISTORY OF 04/24/1989 CRYOCAUTERY for HPV cevicitis PAST SURGICAL HISTORY OF Left 06/20/2022 left humerus fracture FAMILY HISTORY Problem Relation Age of Onset Heart Father Heart Brother Heart Paternal Uncle Hypertension Father Cancer Mother UTERINE Social History Tobacco Use Smoking status: Never Smokeless tobacco: Never Substance Use Topics Alcohol use: No Drug use: No MEDICATIONS: Current Outpatient Medications Medication Sig aspirin, enteric coated (ASPIRIN, ENTERIC COATED) 81 mg EC tablet Take 1 tablet by mouth once daily. atorvastatin (LIPITOR) 40 mg tablet Take 40 mg by mouth daily at bedtime. pantoprazole DR (PROTONIX) 40 mg tablet Take 40 mg by mouth twice daily. gabapentin (NEURONTIN) 100 mg capsule Take 100 mg by mouth daily at bedtime. carvedilol (COREG) 6.25 mg tablet Take 6.25 mg by mouth twice daily with meals. cyanocobalamin (VITAMIN B-12) 500 mcg tablet Take 1 tablet by mouth twice daily. calcium, elemental, tab Take 1 tablet by mouth twice daily. CENTRUM SILVER TAB Take one(1) tablet daily. No current facility-administered medications for this visit. ALLERGIES: ALLERGIES Allergen Reactions Alcohol Itching Perfume Shortness of Breath Seasonal Allergies Itching PHYSICAL EXAMINATION: Resp 16 Ht 5' 2 (1.58m) Wt 125 lb (56.7kg) BMI 22.86 kg/(m^2). General Appearance: Well appearing, alert, in no acute distress, well-hydrated, well nourished. Skin: Skin color, texture, turgor normal, no suspicious rashes or lesions. Extremities: Left elbow surgical incision healed. Left arm and forearm compartments soft and compressible. Edema completely resolved, posterolateral plate visible and palpable through skin without skin tenting or skin at risk. Demonstrates active extension within 15 degrees of full and flexion to 110 degrees. Able to touch face and top of head with left hand. Demonstrates ability to adduct small finger which was previously absent. Demonstrates full left forearm pronation and supination with no crepitance. Peripheral Pulses: Normal. Neurologic: Intact light touch sensation left upper extremity; mild improvement of the ring and small digits though paresthesias still predominate. IMAGES: Recent Results (from the past 36 hour(s)) XR ELBOW GENERAL 2V AP/LAT LEFT Narrative AP and lateral views left elbow demonstrate no change in position of hardware stabilizing the supracondylar distal humerus fractures. There is continued bone activity with evidence of healing in both planes. The radiocapitellar and ulnohumeral joints are maintained. No new fracture identified. ASSESSMENT AND PLAN: 1. Other closed displaced fracture of distal end of left humerus with routine healing, subsequent encounter - ICD9: V54.11, ICD10: S42.492D (primary diagnosis) 2. Neurapraxia of left ulnar nerve, subsequent encounter - ICD9: V58.89, 955.2, ICD10: S54.02XD Functional Plan: No restrictions with weightbearing or range of motion left upper extremity; may push off on a chair as tolerated to independently rise. Assistance Devices: Discussed elbow sleeve for protection as desired based on prominence of hardware; discussed hardware removal as an option, though patient wants to avoid another procedure. Physical/Occupational Therapy: None, patient very active with home exercise. Wound Care: None. Pain Control: No change in pain regimen recommended this office visit. Fragility Fracture: Previously addressed. Additional: Ulnar nerve function appears mild to moderately improved from last visit and would expect further recovery with time. Patient amenable to continued conservative management of symptoms to avoid more surgery. Return if symptoms worsen or fail to improve. Kaushik Corona MD Medical Decision Making: Problems: Low: Stable chronic illness Data: Unique test result(s) reviewed: 1 Unique test(s) ordered: 1 Risk: Low: Low risk from testing/treatment Medical Decision Making Level: 3 - Low documented in this encounter [facility] 09-28-2022 Instructions Kaushik Corona MD - 09/28/2022 11:23 AM EDT Try a copper-fit sleeve for the left elbow. documented in this encounter [facility] 08-17-2022 Note HNO ID: [id number] Author: Kaushik Corona MD Service: ? Author Type: Physician Type: Progress Notes Filed: 08/24/2022 9:25 AM Note Text: ORTHOPAEDIC OFFICE NOTE CHIEF COMPLAINT: left elbow injury, small finger catching objects HISTORY OF PRESENT ILLNESS: Renaldo Zaidi is a 87 year old female who presents for reevaluation after open reduction internal fixation left distal humerus fractures 06/20/2022. She has continued to range the elbow as tolerated and weight bearing household items with the left hand. Describes no elbow pain, but has continued numbness of the small finger with angulation deformity that she has to keep from striking objects. No new injury mechanisms. No problems with surgical incision. Accompanied by . Reviewed nursing note and current pain scale. PAST MEDICAL HISTORY Diagnosis Date - Abnormal glandular Papanicolaou smear of cervix 04/24/1989 Abn. Pap smear (cervix) - Heart attack (HCC) - Left arm pain - Mixed hyperlipidemia Hyperlipidemia - Osteoporosis, unspecified - Postmenopausal atrophic vaginitis Atroph. vaginitis/post-men. - Seasonal allergies PAST SURGICAL HISTORY Procedure Laterality Date - BIOPSY BREAST OPEN INCISIONAL Bx of breast, incisional right side - PAST SURGICAL HISTORY OF ` MIDDLE EAR SURG - PAST SURGICAL HISTORY OF 04/24/1989 CRYOCAUTERY for HPV cevicitis - PAST SURGICAL HISTORY OF Left 06/20/2022 left humerus fracture FAMILY HISTORY Problem Relation Age of Onset - Heart Father - Heart Brother - Heart Paternal Uncle - Hypertension Father - Cancer Mother UTERINE Social History Tobacco Use - Smoking status: Never - Smokeless tobacco: Never Substance Use Topics - Alcohol use: No - Drug use: No MEDICATIONS: Current Outpatient Medications Medication Sig - aspirin, enteric coated (ASPIRIN, ENTERIC COATED) 81 mg EC tablet Take 1 tablet by mouth once daily. - atorvastatin (LIPITOR) 40 mg tablet Take 40 mg by mouth daily at bedtime. - pantoprazole DR (PROTONIX) 40 mg tablet Take 40 mg by mouth twice daily. - gabapentin (NEURONTIN) 100 mg capsule Take 100 mg by mouth daily at bedtime. - carvedilol (COREG) 6.25 mg tablet Take 6.25 mg by mouth twice daily with meals. - cyanocobalamin (VITAMIN B-12) 500 mcg tablet Take 1 tablet by mouth twice daily. - calcium, elemental, tab Take 1 tablet by mouth twice daily. - CENTRUM SILVER TAB Take one(1) tablet daily. No current facility-administered medications for this visit. ALLERGIES: ALLERGIES Allergen Reactions - Alcohol Itching - Perfume Shortness of Breath - Seasonal Allergies Itching PHYSICAL EXAMINATION: Resp 18 Ht 5' 3 (1.60m) Wt 125 lb (56.7kg) BMI 22.15 kg/(m2). General Appearance: Well appearing, alert, in no acute distress, well-hydrated, well nourished. Skin: Skin color, texture, turgor normal, no suspicious rashes or lesions. Extremities: Left elbow incision well healed. Global edema improved. Left arm and forearm compartments soft and compressible. Able to touch face and top of head with left hand. Active extension within 10 degrees of full and flexion to 110 degrees. At rest has abduction of small finger, only able to hold closer to neutral momentarily. Has control and normal alignment of left ring finger; able to flex and extend small finger in truncated arc. Left wrist flexion and extension actively in functional arc of motion. Peripheral Pulses: Normal. Neurologic: Intact light touch sensation left upper extremity, present but diminished ulnar border of ring finger and absent small digit. IMAGES: Recent Results (from the past 36 hour(s)) XR ELBOW GENERAL 2V AP/LAT LEFT Narrative AP and lateral views left elbow demonstrate no change in position of the plate and screw construct stabilizing the supracondylar distal humerus fractures. The radiocapitellar and ulnohumeral joints are well maintained in both planes. No new fracture identified. ASSESSMENT AND PLAN: 1. Other closed displaced fracture of distal end of left humerus with routine healing, subsequent encounter - ICD9: V54.11, ICD10: S42.492D (primary diagnosis) 2. Neurapraxia of left ulnar nerve, subsequent encounter - ICD9: V58.89, 955.2, ICD10: S54.02XD Functional Plan: Weight bearing and range of motion as tolerated left upper extremity. Assistance Devices: Applied alexandro tape/coban small finger to ring finger and demonstrated to patient and . Plan for short term while ulnar neuropraxia is monitored. Discussed relationship to injury and surgical intervention with ulnar nerve location. Potential future EMG/NCS depending on recovery. Reluctant towards further surgery at this time. Physical/Occupational Therapy: None currently, has demonstrated independent elbow progress. Wound Care: None. Pain Control: No change in pain regimen recommended this office visit. Fragility Fracture: On supplementation. Addition (more content not included)... [facility] 08-17-2022 History of Presen t illness Narrative Images from the original note were not included. ORTHOPAEDIC OFFICE NOTE CHIEF COMPLAINT: left elbow injury, small finger catching objects HISTORY OF PRESENT ILLNESS: Renaldo Zaidi is a 87 year old female who presents for reevaluation after open reduction internal fixation left distal humerus fractures 06/20/2022. She has continued to range the elbow as tolerated and weight bearing household items with the left hand. Describes no elbow pain, but has continued numbness of the small finger with angulation deformity that she has to keep from striking objects. No new injury mechanisms. No problems with surgical incision. Accompanied by . Reviewed nursing note and current pain scale. PAST MEDICAL HISTORY Diagnosis Date Abnormal glandular Papanicolaou smear of cervix 04/24/1989 Abn. Pap smear (cervix) Heart attack (HCC) Left arm pain Mixed hyperlipidemia Hyperlipidemia Osteoporosis, unspecified Postmenopausal atrophic vaginitis Atroph. vaginitis/post-men. Seasonal allergies PAST SURGICAL HISTORY Procedure Laterality Date BIOPSY BREAST OPEN INCISIONAL Bx of breast, incisional right side PAST SURGICAL HISTORY OF ` MIDDLE EAR SURG PAST SURGICAL HISTORY OF 04/24/1989 CRYOCAUTERY for HPV cevicitis PAST SURGICAL HISTORY OF Left 06/20/2022 left humerus fracture FAMILY HISTORY Problem Relation Age of Onset Heart Father Heart Brother Heart Paternal Uncle Hypertension Father Cancer Mother UTERINE Social History Tobacco Use Smoking status: Never Smokeless tobacco: Never Substance Use Topics Alcohol use: No Drug use: No MEDICATIONS: Current Outpatient Medications Medication Sig aspirin, enteric coated (ASPIRIN, ENTERIC COATED) 81 mg EC tablet Take 1 tablet by mouth once daily. atorvastatin (LIPITOR) 40 mg tablet Take 40 mg by mouth daily at bedtime. pantoprazole DR (PROTONIX) 40 mg tablet Take 40 mg by mouth twice daily. gabapentin (NEURONTIN) 100 mg capsule Take 100 mg by mouth daily at bedtime. carvedilol (COREG) 6.25 mg tablet Take 6.25 mg by mouth twice daily with meals. cyanocobalamin (VITAMIN B-12) 500 mcg tablet Take 1 tablet by mouth twice daily. calcium, elemental, tab Take 1 tablet by mouth twice daily. CENTRUM SILVER TAB Take one(1) tablet daily. No current facility-administered medications for this visit. ALLERGIES: ALLERGIES Allergen Reactions Alcohol Itching Perfume Shortness of Breath Seasonal Allergies Itching PHYSICAL EXAMINATION: Resp 18 Ht 5' 3 (1.60m) Wt 125 lb (56.7kg) BMI 22.15 kg/(m^2). General Appearance: Well appearing, alert, in no acute distress, well-hydrated, well nourished. Skin: Skin color, texture, turgor normal, no suspicious rashes or lesions. Extremities: Left elbow incision well healed. Global edema improved. Left arm and forearm compartments soft and compressible. Able to touch face and top of head with left hand. Active extension within 10 degrees of full and flexion to 110 degrees. At rest has abduction of small finger, only able to hold closer to neutral momentarily. Has control and normal alignment of left ring finger; able to flex and extend small finger in truncated arc. Left wrist flexion and extension actively in functional arc of motion. Peripheral Pulses: Normal. Neurologic: Intact light touch sensation left upper extremity, present but diminished ulnar border of ring finger and absent small digit. IMAGES: Recent Results (from the past 36 hour(s)) XR ELBOW GENERAL 2V AP/LAT LEFT Narrative AP and lateral views left elbow demonstrate no change in position of the plate and screw construct stabilizing the supracondylar distal humerus fractures. The radiocapitellar and ulnohumeral joints are well maintained in both planes. No new fracture identified. ASSESSMENT AND PLAN: 1. Other closed displaced fracture of distal end of left humerus with routine healing, subsequent encounter - ICD9: V54.11, ICD10: S42.492D (primary diagnosis) 2. Neurapraxia of left ulnar nerve, subsequent encounter - ICD9: V58.89, 955.2, ICD10: S54.02XD Functional Plan: Weight bearing and range of motion as tolerated left upper extremity. Assistance Devices: Applied alexandro tape/coban small finger to ring finger and demonstrated to patient and . Plan for short term while ulnar neuropraxia is monitored. Discussed relationship to injury and surgical intervention with ulnar nerve location. Potential future EMG/NCS depending on recovery. Reluctant towards further surgery at this time. Physical/Occupational Therapy: None currently, has demonstrated independent elbow progress. Wound Care: None. Pain Control: No change in pain regimen recommended this office visit. Fragility Fracture: On supplementation. Additional: None. Return in about 6 weeks (around 09/28/2022). Medical Decision Making: Problems: Moderate: Acute complicated injury Data: Unique test result(s) reviewed: 1 Unique test(s) ordered: 1 Risk: Low: Low risk from testing/treatment Medical Decision Making Level: 3 - Low Kaushik Corona MD documented in this encounter [facility] 07-06-2022 Note HNO ID: [id number] Author: Kaushik Corona MD Service: ? Author Type: Physician Type: Progress Notes Filed: 07/17/2022 10:50 AM Note Text: ORTHOPAEDIC OFFICE NOTE CHIEF COMPLAINT: left elbow injury HISTORY OF PRESENT ILLNESS: Renaldo Zaidi is a 86 year old female who presents for post-operative evaluation after open reduction internal fixation left distal humerus fractures 06/20/2022. Has remained non-weight bearing in a splint. Notes pain generally improved. Still has numbness of the left ring and small digits. No new fevers chills nausea or vomiting. No new chest pain or shortness of breath. No new injury mechanism. Reviewed nursing note and current pain scale. PAST MEDICAL HISTORY Diagnosis Date Abnormal glandular Papanicolaou smear of cervix 04/24/1989 Abn. Pap smear (cervix) Heart attack (HCC) Left arm pain Mixed hyperlipidemia Hyperlipidemia Osteoporosis, unspecified Postmenopausal atrophic vaginitis Atroph. vaginitis/post-men. Seasonal allergies PAST SURGICAL HISTORY Procedure Laterality Date BIOPSY BREAST OPEN INCISIONAL Bx of breast, incisional right side PAST SURGICAL HISTORY OF ` MIDDLE EAR SURG PAST SURGICAL HISTORY OF 04/24/1989 CRYOCAUTERY for HPV cevicitis PAST SURGICAL HISTORY OF Left 06/20/2022 left humerus fracture FAMILY HISTORY Problem Relation Age of Onset Heart Father Heart Brother Heart Paternal Uncle Hypertension Father Cancer Mother UTERINE Social History Tobacco Use Smoking status: Never Smokeless tobacco: Never Substance Use Topics Alcohol use: No Drug use: No MEDICATIONS: Current Outpatient Medications Medication Sig aspirin, enteric coated (ASPIRIN, ENTERIC COATED) 81 mg EC tablet Take 1 tablet by mouth once daily. atorvastatin (LIPITOR) 40 mg tablet Take 40 mg by mouth daily at bedtime. pantoprazole DR (PROTONIX) 40 mg tablet Take 40 mg by mouth twice daily. gabapentin (NEURONTIN) 100 mg capsule Take 100 mg by mouth daily at bedtime. carvedilol (COREG) 6.25 mg tablet Take 6.25 mg by mouth twice daily with meals. cyanocobalamin (VITAMIN B-12) 500 mcg tablet Take 1 tablet by mouth twice daily. calcium, elemental, tab Take 1 tablet by mouth twice daily. CENTRUM SILVER TAB Take one(1) tablet daily. meloxicam (MOBIC) 15 mg tablet Take 1 tablet by mouth once daily. Take with breakfast. No current facility-administered medications for this visit. ALLERGIES: ALLERGIES Allergen Reactions Alcohol Itching Perfume Shortness of Breath Seasonal Allergies Itching PHYSICAL EXAMINATION: Resp 20 Ht 5' 2 (1.58m) Wt 125 lb (56.7kg) BMI 22.86 kg/(m2). General Appearance: Well appearing, alert, in no acute distress, well-hydrated, well nourished. Skin: Skin color, texture, turgor normal, no suspicious rashes or lesions. Extremities: Left elbow incision healing well. Left arm and forearm compartments soft and compressible. Scattered ecchymosis left elbow. Demonstrates short arc elbow flexion and extension with mild pain. Demonstrates full passive left forearm pronation and supination with no block to motion. Peripheral Pulses: Normal. Neurologic: Intact light touch sensation left upper extremity, except decreased at the hand in ulnar nerve distribution. IMAGES: Recent Results (from the past 36 hour(s)) XR ELBOW GENERAL 2V AP/LAT LEFT Narrative AP and lateral views left elbow demonstrate no change in position of hardware stabilizing the intraarticular distal humerus fractures. Alignment maintained, though views rotated. No new fracture identified. ASSESSMENT AND PLAN: 1. Other closed displaced fracture of distal end of left humerus with routine healing, subsequent encounter - ICD9: V54.11, ICD10: S42.492D 2. Left ulnar nerve neuropraxia Functional Plan: Light weight bearing one pound left upper extremity. Gentle range of motion exercises demonstrated, with focus of touch face and top of head with left hand. Assistance Devices: Discontinued splint left upper extremity, administered sling for comfort. May remove at rest and in bed. Physical/Occupational Therapy: None currently, home exercises as above. Wound Care: Cleaned incision and removed all brett. Encouraged daily soap and water washes left elbow. Pain Control: Reviewed consistent short term NSAID for pain and swelling; administered prescription for meloxicam. Discussed risks and benefits of medication. Fragility Fracture: On supplementation. Additional: None. Return in about 6 weeks (around 08/17/2022). Kaushik Corona MD [facility] 06-21-2022 Note HNO ID: [id number] Author: Michelle Knott APRN.DRAIN TILER Service: Orthopaedic Surgery Author Type: Nurse Practitioner Type: Plan of Care Filed: 06/21/2022 12:55 PM Note Text: Patient voiding without difficulty. UA negative. PT/OT recommended home. Patient ready for discharge. Educated to follow up with her puff iron operator regarding coreg (possible decreasing dose or discontinuing). Educated on checking BP prior to taking medication daily and to hold for SBP< 120. Verbalizes understanding. Patient declines need for narcotic and will use tylenol for pain control. [facility] 06-21-2022 Note HNO ID: [id number] Author: Leeann Loaiza APRN.DRAIN TILER Service: General Surgery Author Type: Nurse Practitioner Type: Progress Notes Filed: 06/22/2022 8:11 AM Note Text: Summary: [facility] DC Note Discharge Geriatric Vulnerability Screens Surgeon: Surgeon(s) and Role: * Kaushik Corona MD - Primary * Kaushik Cai MD - Resident - Assisting * Ender Slaughter MD - Resident - Assisting Procedure Performed: Procedure(s): OPEN REDUCTION HUMERAL FX. SUPRACONDYLAR OR TRANSCONDYLAR W/INTERNAL FIXATION, W/O INTERCONDYLAR EXT. (Left) Date of Procedure: 06/20/2022 Impaired Cognition at Discharge: No Delirious at Discharge:No Impaired Functional Status at Discharge: No, Independent Impaired Mobility at Discharge:No Weight Bearing Status: WBAT LUE Plan: dc home Malnutrition at Discharge:No Geriatric Vulnerability Management Plan: dc home Communication Plan: Geriatric vulnerability screens were performed by nursing, therapy and results were communicated to surgeon/surgical team who devised the above plan. The plan was communicated to the patient and family/caregivers: Via nursing dc instructions Patient/Caregivers were given educational material on delirium, falls, and mobility. Patient's primary doctor: No primary care provider on file. This plan was communicated to the patient's primary doctor: Through Electronic Health Record (EHR) messaging Disposition: Patient to be discharged home alone/with family [facility] 06-21-2022 Note HNO ID: [id number] Author: Severiano Travis DO Service: Hospital Medicine Author Type: Physician Type: Progress Notes Filed: 06/21/2022 4:34 PM Note Text: DEPARTMENT OF HOSPITAL MEDICINE PROGRESS NOTE SERVICE DATE: 06/21/2022 SERVICE TIME: 945 Hospital Medicine/Primary Attending: Severiano Travis DO NIGHT AND WEEKEND COVERAGE: After 7pm please page [phone] CHIEF COMPLAINT: L arm pain SUBJECTIVE: Pt seen and examined. Complains of some L arm pain, but otherwise denies CP, SOB, NVD, headache, fever/hcills, abdominal pain, and dizziness or lightheadedness. OBJECTIVE: PHYSICAL EXAM: BP 117/63 Pulse 77 Temp (Src) 97.5 (Oral) Resp 18 Ht 5' 5 (1.65m) Wt 125 lb (56.7kg) SpO2 95% BMI 20.80 kg/(m2). O2 Therapy: Room Air General - AANDOx3, NAD, Calm CV - RRR S1 S2, No rubs or gallops RESP - CTA B/L No wheezes, ronchi, rales ABD - soft, NT, ND +BS EXT - L arm wrapped in bandages, finger are warm and not swollen NEURO - CN II-XII grossly intact MEDICATIONS: Current Facility-Administered Medications Medication Dose Route Frequency atorvastatin 40 mg tab(s) (LIPITOR) 40 mg ORAL AT BEDTIME gabapentin 100 mg cap(s) (NEURONTIN) 100 mg ORAL AT BEDTIME pantoprazole DR 40 mg tab(s) (PROTONIX) 40 mg ORAL BID cyanocobalamin 500 mcg (VITAMIN B-12) 500 mcg ORAL BID NaCl 0.9% iv flush bag 20 mL INTRAVENOUS PRN lactated ringers iv infusion 100 mL/hr INTRAVENOUS CONTINUOUS ondansetron 4 mg tab(s) (ZOFRAN) 4 mg ORAL q 6 H PRN Or ondansetron (PF) 4 mg injection (ZOFRAN) 4 mg INTRAVENOUS q 6 H PRN acetaminophen 650 mg tab(s) (TYLENOL) 650 mg ORAL q 6 H oxyCODONE IR 2.5-5 mg tab(s) (ROXICODONE) 2.5-5 mg ORAL q 4 H PRN HYDROmorphone (PF) 0.3 mg injection (DILAUDID) 0.3 mg INTRAVENOUS q 3 H PRN carvedilol 6.25 mg tab(s) (COREG) 6.25 mg ORAL BID w MEALS senna 8.6 mg tab(s) (SENOKOT) 8.6 mg ORAL BID polyethylene glycol 3350 17 g packet (MIRALAX, GLYCOLAX) 17 g ORAL DAILY PRN aspirin 81 mg chewable tab(s) 81 mg ORAL DAILY DATA: Diagnostic tests reviewed for today's visit: CBC: Recent Labs 06/21/2249 WBC 15.48* RBC 4.01 HB 11.1* HCT 33.8* PLT 296 MCV 84.3 MCH 27.7 MPV 9.8 Coags: No results for input(s): PT, INR, APTT in the last 24 hours. BMP: Recent Labs 06/21/2249 NA 136 K 4.2 CHLOR 103 CO2 25 BUN 16 CREAT 1.15* GLUC 117* CMP: Recent Labs 06/21/2249 NA 136 K 4.2 CHLOR 103 CO2 25 BUN 16 CREAT 1.15* GLUC 117* CA 8.7 ANION 8* Cardiac Enzymes: No results for input(s): CK, MB, CKMB, TROPT in the last 24 hours. Liver Function, Amylase, Lipase: No results for input(s): TPROT, ALB, ALT, AST, ALKPHOS, TBILI, AMYLASE, LIPASE, LACTATE in the last 24 hours. MG/PHOS: No results for input(s): MG, P in the last 24 hours. Renal Panel: Recent Labs 06/21/2249 CREAT 1.15* BUN 16 GLUC 117* CA 8.7 CHLOR 103 K 4.2 CO2 25 NA 136 Heme: No results for input(s): RETICP, ABSRETIC, LD, MURALI, FE, TIBC, TRANSFERSAT in the last 24 hours. No results found for: UALBCR Estimated Creatinine Clearance: 30.8 mL/min (A) (based on SCr of 1.15 mg/dL (H)). Most recent labs and radiology results reviewed. Problem List At risk for delirium POA: Yes Hypertension POA: Yes Assessment/Plan #L distal humerus fracture, s/p mechanical fall -POD#1 s/p ORIF L humerus -continue oxycodone 2.5-5mg PO Q4 hours as needed for pain, but minimize narcotics as much as possible in this patient -encourge IS -I reviewed basic labs today -PTOT #Preoperative evaluation -RCRI 2 points for hx of cerebrovascular disease on CT brain and hx of MA. #Acute urinary retention- in setting of pain medication, would encourage stool softeners perioperatively. Would limit narcotic use. Now urinating without difficulty #Leukocytosis -likely reactive in setting of fall and humerus fracture, the WBC stable today at 15.48 (15.74) -UA 06/20 did not appear infected -no sign of infection on CXR, appears to have L basilar atelectasis, will monitor for any respiratory symptoms to suggest infection #Hx CVA- CT braine on admission showed multiple small cerebellar infarcts. She takes aspirin at home, recommend that aspirin be restarted HEBER following surgery per the primary team, as patient will be high risk for stroke #HLD-continue home lipitor 40mg daily #HTN-continue home coreg 125.mg BID, monitor BP perioperatively. I reviewed BP trend, and aside from post-op, the patient's BP has been stable. Can perform orthostatics, discussed with nurse. Can keep BP journal at home to take to her PCP. #GERD- will continue home protonix 40mg BID VTE Prophylaxis: per primary team Disposition: TBD Plan of care discussed with: Provider, RN, Patient SIGNATURE: Severiano Travis DO PATIENT NAME: Renaldo Zaidi DATE: June 21, 2022 TIME: 4:30 PM PAGER/CONTACT #: Team color pager Disclaimer: Portions of this note may have been g (more content not included)... [facility] 06-21-2022 Note HNO ID: [id number] Author: Art Bledsoe MD Service: Orthopaedic Surgery Author Type: Resident Type: Progress Notes Filed: 06/21/2022 6:24 AM Note Text: ORTHOPAEDIC SURGERY DAILY PROGRESS NOTE Patient Name: Renaldo Zaidi Date of Evaluation: 06/21/2022 Admission Date: 06/19/2022 Time of Evaluation: 6:00 AM ASSESSMENT: 86 year old female POD # 1 s/p ORIF L intra-articular distal humerus fracture PLAN: - Pain control - Dressing: keep splint clean and dry - PT/OT: NWB LUE - DVT ppx: SCDs and early mobilization - Post op ABX: ancef 2g x 2 doses - regular diet - d/c planning: pending PT/OT eval. Anticipate 2-3 days INTERVAL HPI: No acute events overnight recorded in chart. Pt currently complains of some pain in left elbow. She states that her elbow pain is well controlled. The patient complains of some numbness to left small finger new since surgery. The patient denies nausea/vomiting, CP, SOB, and fevers/chills. OBJECTIVE: BP 127/77 Pulse 95 Temp 36.5 ?C (97.7 ?F) (Oral) Resp 18 Ht 165.1 cm (5' 5 ) Wt 56.7 kg (125 lb) SpO2 95% BMI 20.80 kg/m? Intake/Output Summary (Last 24 hours) No intake/output data recorded. Exam: General: Pt is alert, resting in bed, no acute distress, cooperative throughout the exam and interview, answers questions appropriately Extremities: Left Upper Extremity: Splint dry, clean and intact. There is minimal tenderness to palpation about the incision site. The patient tolerates passive stretch of the digits. +AIN/PIN motor function. Ulnar nerve motor function decreased (new from prior exam). SILT M/R with paresthesias to ulnar nerve distribution. BCR to the digits of the hand. Radial pulse palpable/ Labs: BMP: Sodium 136 06/21/2022 Potassium 4.2 06/21/2022 Chloride 103 06/21/2022 CO2 25 06/21/2022 BUN 16 06/21/2022 Creatinine 1.15 06/21/2022 Glucose 117 06/21/2022 CBC: WBC 15.48 06/21/2022 Hemoglobin 11.1 06/21/2022 Hematocrit 33.8 06/21/2022 Platelet Count 296 06/21/2022 COAGS: APTT 25.6 06/20/2022 INR 1.0 06/19/2022 SED RATE/CRP: No results found for this basename: wsr:*,crp:* Imaging: No new orthopaedic imaging to review Assessment Active Hospital Problems Diagnosis Date Noted Closed bicondylar fracture of distal humerus, left, initial encounter 06/20/2022 At risk for delirium 06/20/2022 Falls 06/20/2022 Hypertension 06/20/2022 Hospital Course/Operations/Procedures: 06/20/2022 Procedure(s): OPEN REDUCTION HUMERAL FX. SUPRACONDYLAR OR TRANSCONDYLAR W/INTERNAL FIXATION, W/O INTERCONDYLAR EXT. IINPATIENT ATTENDING: Dr. Kaushik Corona MD, Urgent High-Risk Geriatric Patient Vulnerabilities: Age >85, Delirium Risk, Impaired Functional Status, and Impaired Mobility - Diet: No diet orders on file - Code Status: Full code - Team members: Surgeon, Resident/SANDIE, and Nurse - Recommendations: -Cognition: No Cognitive Impairment -Geriatric Consult (Age over 85 or impaired cognition):Consulted, Appreciate recs -Palliative Care/Hospice: Consult not required -Rehab/Therapy: Waiting recs -PT/OT Recommendations: N/A -Speech: No swallowing impairment -Speech Recommendations: N/A -Nutrition: Consult not required -Nutrition Recommendations: N/A -Pharmacy: Consult not needed -Social Work: Social Work Consulted -Other consults/considerations: Geriatrics and hospital medicine - Anticipated Discharge Disposition: Pending PT/OT recs Art Bledsoe MD Resident, Orthopaedic Surgery Pager #: [phone] 06/21/2022 6:00 AM Please page [phone] from 5p-6a and on weekends for any issues. [facility] 06-20-2022 Note HNO ID: [id number] Author: Rosalina Shannon RN Service: ? Author Type: Registered Nurse Type: Nursing Progress Note Filed: 06/20/2022 1:15 PM Note Text: X-ray at bedside [facility] documented as of this encounter (statuses as of 06/21/2022) [facility]02-27-2023 History of Past illness Narrative* Problem Noted Date Resolved Date Falls 06/20/2022 06/21/2022 Closed bicondylar fracture o f distal humerus, left, initial encounter 06/20/2022 06/21/2022 Open fracture distal humerus , bicondylar (T-Y fracture), left, initial encounter 06/19/2022 06/20/2022 documented as of this encounter (statuses as of 08/24/2022) [facility]02-27-2023 History of Past illness Narrative* Problem Noted Date Resolved Date Falls 06/20/2022 06/21/2022 Closed bicondylar fracture o f distal humerus, left, initial encounter 06/20/2022 06/21/2022 Open fracture distal humerus , bicondylar (T-Y fracture), left, initial encounter 06/19/2022 06/20/2022 documented as of this encounter (statuses as of 09/28/2022) [facility]-2023 History of Past illness Narrative* Problem Noted Date Diagnosed Date Resolved Date Falls 06/20/2022 06/21/2022 Closed bicondylar fracture o f distal humerus, left, initial encounter 06/20/2022 06/21/2022 Open fracture distal humerus , bicondylar (T-Y fracture), left, initial encounter 06/19/202206/20 documented as of this encounter (statuses as of 11/07/2022) [facility]02-27-2023 NoteHNO ID: [id number] Author: Gamaliel Lindquist APRN.TOOL AND EQUIPMENT RENTAL CLERK Service: Anesthesiology Author Type: Nurse Parts Representative Type: Anesthesia Procedure Notes Filed: 06/20/2022 10:28 AM Note Text: ANESTHESIOLOGY PROCEDURE NOTE Airway General Information Procedure Start Time/Medication Administration: 06/20/2022 9:58 AM Patient location during procedure: OR Timeout Performed Pre-procedure: timeout performed Consent Obtained: Yes Patient identity confirmed: arm band, care steam and power superintendent and patient Staffing TOOL AND EQUIPMENT RENTAL CLERK: Gamaliel Lindquist APRN.TOOL AND EQUIPMENT RENTAL CLERK Performed by: TOOL AND EQUIPMENT RENTAL CLERK Indications and Patient Condition Indications for airway management: anesthesia and airway protection Preoxygenated: yes anesthesia circuit Patient position: sniffing Method: sleep Cricoid Pressure: No Manual In-Line Stabilization: No Difficult Mask: No Final Airway Details Final airway type: endotracheal airway Final Endotracheal Airway: ETT Cuffed: yes Successful intubation technique: direct laryngoscopy Endotracheal tube insertion site: oral Blade: Rola Blade size: #4 ETT size (mm): 7.5 Measured from: lips Measurement (cm): 21 Placement verified by: chest auscultation and capnometry Cormack-Lehane Classification: grade IIa - partial view of glottis Number of attempts at approach: 1 Failed airway: no Unrecognized esophageal intubation: no Airway not difficult SIGNATURE: Gamaliel Lindquist APRN.TOOL AND EQUIPMENT RENTAL CLERK PATIENT NAME: Renaldo Zaidi DATE: June 20, 2022 TIME: 10:28 AM [facility]: [id number] NoteHNO ID: [id number] Author: Art Bledsoe MD Service: Orthopaedic Surgery Author Type: Resident Type: Progress Notes Filed: 06/20/2022 8:00 AM Note Text: ORTHOPAEDIC SURGERY DAILY PROGRESS NOTE Patient Name: Renaldo Zaidi Date of Evaluation: 06/20/2022 Admission Date: 06/19/2022 Time of Evaluation: 5:59 AM ASSESSMENT: 86 year old female with left distal humerus fracture PLAN: -Ortho primary -Hospital medicine as well as geriatrics consulted -Pain control -DVT ppx: We will hold chemo DVT prophylaxis at this time. Okay for SCDs bilateral lower extremities-ordered -Antibiotics: Sheela-operative -Imaging: Based on imaging available, no need for CT scan left elbow at this time -Weight bearing status: Nonweightbearing left upper extremity -Diet: NPO with IV fluids for OR 06/20 -Plan for surgical fixation on 06/20 -Consent placed in chart electronically after explaining risk, benefits, alternatives, limitations with patient and 2 sons. -Dispo pending hospital course as well as PT/OT recommendations INTERVAL HPI: No acute events overnight recorded in chart. Pt currently complains of some pain in left elbow which is well controlled. The patient chest pain, sob, denies nausea/vomiting, fevers/chills, and new numbness/tingling. OBJECTIVE: BP 126/66 Pulse 75 Temp 36.8 ?C (98.2 ?F) (Oral) Resp 16 Ht 165.1 cm (5' 5 ) Wt 56.7 kg (125 lb) SpO2 95% BMI 20.80 kg/m? Intake/Output Summary (Last 24 hours) No intake/output data recorded. Exam: General: Pt is alert, resting in bed, no acute distress, cooperative throughout the exam and interview, answers questions appropriately Extremities: Left Lower Extremity: Splint clean, dry, and intact. SILT S/S/SP/DP/T Motor intact DF/PF/EHL DP pulse palpable, foot warm, BCR toes Compartments soft, compressible. Tolerates passive stretch of digits. Labs: BMP: Sodium 133 06/19/2022 Potassium 4.0 06/19/2022 Chloride 101 06/19/2022 CO2 21 06/19/2022 BUN 23 06/19/2022 Creatinine 1.04 06/19/2022 Glucose 226 06/19/2022 CBC: WBC 15.74 06/20/2022 Hemoglobin 12.0 06/20/2022 Hematocrit 36.3 06/20/2022 Platelet Count 334 06/20/2022 COAGS: APTT 25.6 06/20/2022 INR 1.0 06/19/2022 SED RATE/CRP: No results found for this basename: wsr:*,crp:* Imaging: No new orthopaedic imaging to review Assessment Active Hospital Problems Diagnosis Date Noted Open fracture distal humerus, bicondylar (T-Y fracture), left, initial encounter 06/19/2022 Hospital Course/Operations/Procedures: 06/20/2022 Procedure(s): OPEN REDUCTION HUMERAL FX. SUPRACONDYLAR OR TRANSCONDYLAR W/INTERNAL FIXATION, W/O INTERCONDYLAR EXT. IINPATIENT ATTENDING: Dr. Kaushik Corona MD, Urgent High-Risk Geriatric Patient Vulnerabilities: Age >85, Delirium Risk, Impaired Functional Status, and Impaired Mobility - Diet: No diet orders on file - Code Status: Full code - Team members: Surgeon, Resident/SANDIE, and Nurse - Recommendations: -Cognition: No Cognitive Impairment -Geriatric Consult (Age over 85 or impaired cognition):Consulted, awaiting recommendations -Palliative Care/Hospice: Consult not required -Rehab/Therapy: Waiting recs -PT/OT Recommendations: N/A -Speech: No swallowing impairment -Speech Recommendations: N/A -Nutrition: Consult not required -Nutrition Recommendations: N/A -Pharmacy: Consult not needed -Social Work: Social Work Consulted -Other consults/considerations: Geriatrics and hospital medicine - Anticipated Discharge Disposition: Pending PT/OT recs Art Bledsoe MD Resident, Orthopaedic Surgery Pager #: [phone] 06/20/2022 5:59 AM Please page [phone] from 5p-6a and on weekends for any issues.[facility] Diagnosis Other closed displaced fracture of distal end of left humerus with routine healing, subsequent encounter- Primary Neurapraxia of left ulnar nerve, subsequent encounter [facility] Other closed displaced fracture of distal end of left humerus with routine healing, subsequent encounter- Primary Neurapraxia of left ulnar nerve, subsequent encounter [facility] Diagnostic Procedure Only (Routine) - Pending Review Specialty Diagnoses / Procedures Referred By Jermaine koroma Referred To Contact XR IMAGING Diagnoses Other closed displaced fracture of distal end of left humerus with routine healing, subsequent encounter Procedures XR ELBOW GENERAL 2V AP/LAT LEFT RADEX ELBOW 2 VIEWS Kaushik Corona MD [address] [place] [address] Xr Imaging Referral ID Status Reason Start Date Expiration Date Visits Requested Visits Authorized [id number] Pending Review Auto-Generat ed Referral 08/17/2022 09/16/2023 1 1 [facility] Diagnostic Procedure Only (Routine) - Pending Review Specialty Diagnoses / Procedures Referred By Jermaine koroma Referred To Contact XR IMAGING Diagnoses Other closed displaced fracture of distal end of left humerus with routine healing, subsequent encounter Neurapraxia of left ulnar nerve, subsequent encounter Procedures XR ELBOW GENERAL 2V AP/LAT LEFT RADEX ELBOW 2 VIEWS Kaushik Corona MD [address] [place] [address] Xr Imaging Referral ID Status Reason Start Date Expiration Date Visits Requested Visits Authorized [id number] Pending Review Auto-Generat ed Referral 09/28/2022 10/28/2023 1 1 [facility] Advance Directives No Advanced Directives Records FoundLatest Code Status on File Code Status Date Activated Date Inactivated Comments Full Code 06/20/2022 7:36 AM Full Code Order Discussed With: Patient Latest Code Status on File Code Status Date Activated Date Inactivated Comments Full Code 06/20/2022 7:36 AM 06/21/2022 8:31 PM Latest Code Status on File Code Status Date Activated Date Inactivated Comments Full Code 06/20/2022 7:36 AM 06/21/2022 8:31 PM Question Answer Comments Full Code Order Discussed With: Patient Summary Purpose Family History No Family History Records FoundNo Family History Records Found Additional Source Comments Source Comments (unrecognize d section and content) In the event this informatio n is protected by the Federal Confidentiality of Alcohol and Drug Abuse Patient Records regulations: The Federal rules restrict any use of the information to criminally investigate or prosecute any alcohol or drug abuse patient.[facility] the event this information is protected by the Federal Confidentiality of Alcohol and Drug Abuse Patient Records regulations: The Federal rules restrict any use of the information to criminally investigate or prosecute any alcohol or drug abuse patient.[facility] the event this information is protected by the Federal Confidentiality of Alcohol and Drug Abuse Patient Records regulations: The Federal rules restrict any use of the information to criminally investigate or prosecute any alcohol or drug abuse patient.[facility] the event this information is protected by the Federal Confidentiality of Alcohol and Drug Abuse Patient Records regulations: The Federal rules restrict any use of the information to criminally investigate or prosecute any alcohol or drug abuse patient.[facility] Reason for Visit (unrecogniz ed section and content) Reason Comments Established Patient Pain radiating down to hand/fingers Pain Pain radiating down to hand/fingers Reason Comments Established Patient Reason Comments Appointment Care Teams (unrecognized sec tion and content) Information Systems Security Analyst Relationship Specialty Start Date End Date Jose Deutsch MD [address] [place] [phone] PCP - General Internal Medicine 06/20/22 Information Systems Security Analyst Relationship Specialty Start Date End Date Jose Deutsch MD [address] [facility] [address] [place] [address] PCP - General Internal Medicine 06/20/22 Information Systems Security Analyst Relationship Specialty Start Date End Date Jose Deutsch MD [address] [facility] [address] [place] [address] PCP - General Internal Medicine 06/20/22 INFORMATION SOURCE (unrecogn ized section and content) DATE CREATED AUTHOR AUTHOR'S MINERVA ATION 11/08/2022 [facility] FOR RECORDS PERTAINING TO PATIENTS WHO ARE OR HAVE BEEN ENROLLED IN A CHEMICAL DEPENDENCY/SUBSTANCEABUSE PROGRAM, SOME INFORMATION MAY BE OMITTED. This clinical summary was aggregated from multiple sources. Caution should be exercised in using it in the provision of clinical care. This summary normalizes information from multiple sources, and as a consequence, information in this document may materially change the coding, format and clinical context of patient data. In addition, data may be omitted in some cases. CLINICAL DECISIONS SHOULD BE BASED ON THE PRIMARY CLINICAL RECORDS. [facility] [employer] provides no warranty or guarantee of the accuracy or completeness of information in this document.
--- NOTE | 2023-04-25 11:56 | STRESSREP ---
Stress Test Report Date: Procedure: Pharmacologic stress nuclear imaging study Indications: Cardiomyopathy Consent: Per the patient Procedure: The patient underwent pharmacologic (Regadenoson 0.4mg ) evaluation with a peak heart rate of 90 beats per minute (70%predicted maximal heart rate) and a peak blood pressure of 134/70 mmHg. The baseline ECG demonstrated sinus rhythm with left bundle branch block. The peak pharmacologic ECG demonstrated no diagnostic changes. Occasional PVCs at rest as well as post pharmacological stress. There was no complaint of chest discomfort during pharmacologic infusion or recovery. The patient was injected with 11.1 millicuries of technetium 99m Cardiolite and subsequently rest SPECT Cardiolite nuclear imaging was obtained in the horizontal long, vertical long, and short axis views. The patient underwent pharmacologic (Regadenoson) evaluation. The patient was injected with 33.6 millicuries of technetium 99m Cardiolite and subsequently stress SPECT Cardiolite nuclear imaging was obtained in the horizontal long, vertical long, and short axis views. A gated Cardiolite study at peak stress was obtained. The examination was stopped secondary to completion of protocol. Rest and stress SPECT Cardiolite nuclear imaging status post realignment, normalization, and attenuation correction demonstrate no fixed or reversible perfusion defect. There is end systolic thickening and brightening. The gated Cardiolite study demonstrates myocardial thickening and inward wall motion. The reported LVEF is 89%. Impression: 1. Pharmacologic (Regadenoson) evaluation 2. Peak pharmacologic ECG with no diagnostic changes secondary to baseline abnormalities. 3. Occasional PVCs pretest and post pharmacological stress. 5. Rest and stress SPECT Cardiolite nuclear imaging demonstrate relative uniform tracer uptake and myocardial perfusion appearing within normal limits. 6. The gated Cardiolite study reports an LVEF of 89%. This note was generated with [employer] software. It may contain incorrect words, spelling, and punctuation that were not noted in checking the note before signing.
== END | disposition home or self-care (01) ==
LOC: CVS 07:09
PROVIDERS: PCP Internal Medicine; Referring Provider Internal Medicine Cardiovascular Disease; Visit Provider Internal Medicine Cardiovascular Disease
DX: I25.10 Atherosclerotic heart disease of native coronary artery without angina pectoris (principal); I42.9 Cardiomyopathy, unspecified; R93.1 Abnormal findings on diagnostic imaging of heart and coronary circulation; I10 Essential (primary) hypertension; I51.3 Intracardiac thrombosis, not elsewhere classified; R00.1 Bradycardia, unspecified
CPT/HCPCS: 78452; 93017; A9500; A4216; J2785

== ENCOUNTER → 2023-06-07 | Outpatient (CLI) | payer MEDICARE, SELFPAY ==
--- OUTSIDE RECORDS SUMMARY | 2023-06-07 12:20 | XMS RPT_ITS | CCD ---
Author Name Unknown Address [address] [place] [address] Organization [facility] Care Team Providers Care Cheerleading Coach Name Role Phone Jose Deutsch MD Primary Care Provider [phone] KAUSHIK CORONA Consulting Unavai lable DINICOLA, KAUSHIK MC Attending Unavai lable KAUSHIK CORONA Admitting Unavai lable DINICOLA, KAUSHIK MC Attending Unavaramone labGIA RichardsonONGBE Eric Primary Care Unavailable KAUSHIK CORONA Attending Tamikavaramone labGIA RichardsonONGBE Eric Primary Care Unavailable KAUSHIK CORONA Attending Unavai labIRENE RichardsonEWONGBE Eric Primary Care Unavailable Jose Deutsch MD Primary Care Provider [phone] Allergies Allergy Classification Reported Allergen(s) Allergy Type Date of Onset Reaction(s) Facility (5 sources) Ethanol; Translations: [ALCOHOL] Drug Allergy 3 Itching [facility] (5 sources) Seasonal allergy; Translations: [SEASONAL ALLERGIES] Allergy to substance 3 Itching [facility] (5 sources) Perfume; Translations: [PERFUME] Drug Allergy 1 Shortness of Breath [facility] Medications Completed/Discontinued Medications Medication Drug Class(es) Dates [...] 157.5 cm Kaushik Corona MD Work Phone: [facility] 09-28-2022 10:54-0400 Body weight 56.7 kg Kaushik Corona MD Work Phone: [facility] 09-28-2022 10:54-0400 Respiratory rate 16 /min Kaushik Corona MD Work Phone: [facility] 08-17-2022 14:16-0400 Body height 160 cm Kaushik Corona MD Work Phone: [facility] 08-17-2022 14:16-0400 Body weight 56.7 kg Kaushik Corona MD Work Phone: [facility] 08-17-2022 14:16-0400 Respiratory rate 18 /min Kaushik Corona MD Work Phone: [facility] Encounters Encounter Date Encounter Type Care Provider [...] Author Start: 06-21-2025 DIABETES SCREEN DIABETES SCREEN [facility] Start: 12-23-2022 Influenza vaccination INFLUENZA (#1) [facility] Start: 04-24-2022 ADVANCE DIRECTIVE DISCUSSION ADVANCE DIRECTIVE DISCUSSION [facility] Start: 04-24-2022 DEPRESSION ASSESSMENT DEPRESSION ASS ESSMENT [facility] Start: 09-02-2021 COVID-19 VACCINE (5 - Booster for Moderna series) COVID-19 VACCINE (5 - Booster for Moderna series) [facility] Start: 09-02-2021 COVID-19 VACCINE (5 - Moderna series) COVID-19 VACCINE (5 - Moderna series) [facility] Start: 07-30-1999 PNEUMOCOCCAL: 65+ (1 - PCV) PNEUMOCOCCAL: 65+ (1 - PCV) [facility] Start: 1984 SHINGRIX VACCINE (1 of 2) SIMS GRIX VACCINE (1 of 2) [facility] Start: 1953 Urine microalbumin profile DTAP,TDAP ,TD (1 - Tdap) [facility] Payers Date Payer Category Payer Medicare [employer] MEDICARE A ETNA MEDICARE PPO [id number] 2009-Present [phone] [address] [place] [address] PPO [id number] 2009 Medicare [id number] Social History Date Type Detail Facility Start: 06-19-2022 End: 07-06-2022 Tobacco smoking status NHIS Never smoked tobacco [facility] Start: 06-20-2022 End: 09-28-2022 Alcohol intake Current non-drinker of alcohol (finding) [facility] Start: 1935 Sex Assigned At Not on file [facility] Start: 07-06-2022 Tobacco use and exposure Smoke less tobacco non-user [facility] Start: 09-28-2022 History of Social function [facility] Start: 09-28-2022 Tobacco use panel [facility] National Score (1-10 0), lower number is lower risk 62 [facility] Medical Equipment Procedure Code Equipment Code Equipment Origin al Text Equipment Identifier Dates Plate Lcp Combi Short Stainless Steel 72mm Bone 1 Hole Variable Angle Round - [id number] Start: 06-20-2022 Screw Lcp 2.7mm T8 Stainless Steel 34mm Bone Variable Angle Lock Self Tap - [id number] Start: 06-20-2022 Clinical Notes 06-20-2022 to 10-31-2022 Telephone Encounter - Khalida Romero - 10/31/2022 3:23 PM PHILTKaushik Corona MD - 09/28/2022 11:24 AM EDTPatient Kisha Corona MD - 08/17/2022 3:30 PM EDT Note Date & Type Note Facility 10-31-2022 Miscellaneous Notes Spoke with patient. Declined consult documented in this encounter [facility] 09-28-2022 Note HNO ID: [id number] Author: Kaushik Corona MD Service: ? Author [...] appears mild t (more content not included)... [facility] 09-28-2022 History of Presen t illness [...] 3 - Low documented in this encounter [facility] 09-28-2022 Instructions Kaushik Corona MD - 09/28/2022 11:23 AM EDT Try a copper-fit sleeve for the left elbow. documented in this encounter [facility] 08-17-2022 Note HNO ID: [id number] Author: Kaushik Corona MD Service: ? Author [...] On supplementation. Addition (more content not included)... [facility] 08-17-2022 History of Presen t illness [...] Kaushik Corona MD documented in this encounter [facility] 07-06-2022 Note HNO ID: [id number] Author: Kaushik Corona MD Service: ? Author [...] 6 weeks (around 08/17/2022). Kaushik Corona MD [facility] 06-21-2022 Note HNO ID: [id number] Author: Michelle Knott APRN.HANDLE ROUNDER OPERATOR Service: Orthopaedic Surgery Author Type: Nurse Practitioner Type: Plan of Care Filed: 06/21/2022 12:55 PM Note Text: Patient voiding without difficulty. UA negative. PT/OT recommended home. Patient ready for discharge. Educated to follow up with her auto tire recapper regarding coreg (possible decreasing dose or discontinuing). Educated on checking BP prior to taking medication daily and to hold for SBP< 120. Verbalizes understanding. Patient declines need for narcotic and will use tylenol for pain control. [facility] 06-21-2022 Note HNO ID: [id number] Author: Leeann Loaiza APRN.HANDLE ROUNDER OPERATOR Service: General Surgery Author Type: Nurse Practitioner [...] Patient to be discharged home alone/with family [facility] 06-21-2022 Note HNO ID: [id number] Author: Severiano Travis DO Service: Hospital Medicine Author Type: Physician Type: Progress Notes Filed: 06/21/2022 4:34 PM Note Text: DEPARTMENT OF HOSPITAL MEDICINE PROGRESS NOTE SERVICE DATE: 06/21/2022 SERVICE TIME: 945 Hospital Medicine/Primary Attending: Severiano Travis DO NIGHT AND WEEKEND COVERAGE: After 7pm please page [phone] CHIEF COMPLAINT: L arm pain SUBJECTIVE: Pt [...] disease on CT brain and hx of ID. #Acute urinary retention- in setting of pain [...] have been g (more content not included)... [facility] 06-21-2022 Note HNO ID: [id number] Author: Art Bledsoe MD Service: Orthopaedic Surgery [...] W/O INTERCONDYLAR EXT. IINPATIENT ATTENDING: Dr. Kaushik Croona MD, Urgent High-Risk Geriatric Patient Vulnerabilities: Age [...] Bledsoe MD Resident, Orthopaedic Surgery Pager #: [phone] 06/21/2022 6:00 AM Please page [phone] from 5p-6a and on weekends for any issues. [facility] 06-20-2022 Note HNO ID: [id number] Author: Rosalina Shannon RN Service: ? Author Type: Registered Nurse Type: Nursing Progress Note Filed: 06/20/2022 1:15 PM Note Text: X-ray at bedside [facility] documented as of this encounter (statuses as of 06/21/2022) [facility]02[facility] History of Past illness Narrative* Problem Noted Date Resolved Date Falls 06/20/2022 06/21/2022 Closed bicondylar fracture o f distal humerus, left, initial encounter 06/20/2022 06/21/2022 Open fracture distal humerus , bicondylar (T-Y fracture), left, initial encounter 06/19/2022 06/20/2022 documented as of this encounter (statuses as of 08/24/2022) [facility] History of Past illness Narrative* Problem Noted Date Resolved Date Falls 06/20/2022 06/21/2022 Closed bicondylar fracture o f distal humerus, left, initial encounter 06/20/2022 06/21/2022 Open fracture distal humerus , bicondylar (T-Y fracture), left, initial encounter 06/19/2022 06/20/2022 documented as of this encounter (statuses as of 09/28/2022) [facility] History of Past illness Narrative* Problem Noted Date Diagnosed Date Resolved Date Falls 06/20/2022 06/21/2022 Closed bicondylar fracture o f distal humerus, left, initial encounter 06/20/2022 06/21/2022 Open fracture distal humerus , bicondylar (T-Y fracture), left, initial encounter 06/19/202206/20 documented as of this encounter (statuses as of 11/07/2022) [facility] NoteHNO ID: [id number] Author: Gamaliel Lindquist APRN.DIRECTOR BUSINESS SYSTEMS Service: Anesthesiology Author Type: Nurse Loss Prevention Analyst Type: Anesthesia Procedure Notes Filed: 06/20/2022 10:28 AM Note Text: ANESTHESIOLOGY PROCEDURE NOTE Airway General Information Procedure Start Time/Medication Administration: 06/20/2022 9:58 AM Patient location during procedure: OR Timeout Performed Pre-procedure: timeout performed Consent Obtained: Yes Patient identity confirmed: arm band, care body team member and patient Staffing DIRECTOR BUSINESS SYSTEMS: Gamaliel Lindquist APRN.DIRECTOR BUSINESS SYSTEMS Performed by: DIRECTOR BUSINESS SYSTEMS Indications and Patient Condition Indications for airway [...] no Airway not difficult SIGNATURE: Gamaliel Lindquist APRN.DIRECTOR BUSINESS SYSTEMS PATIENT NAME: Renaldo Zaidi DATE: June 20, 2022 TIME: 10:28 AM CS[facility]: [id number] NoteHNO ID: [id number] Author: Art Bledsoe MD Service: Orthopaedic Surgery [...] Bledsoe MD Resident, Orthopaedic Surgery Pager #: [phone] 06/20/2022 5:59 AM Please page [phone] from 5p-6a and on weekends for any issues.[facility] Diagnosis Other closed displaced fracture of distal end of left humerus with routine healing, subsequent encounter- Primary Neurapraxia of left ulnar nerve, subsequent encounter documented [facility] Diagnosis Other closed displaced fracture of distal end of left humerus with routine healing, subsequent encounter- Primary Neurapraxia of left ulnar nerve, subsequent encounter documented in this encounter [facility] Diagnostic Procedure Only (Routine) - Pending Review Specialty Diagnoses / Procedures Referred By Jermaine koroma Referred To Contact XR IMAGING Diagnoses Other closed displaced fracture of distal end of left humerus with routine healing, subsequent encounter Procedures XR ELBOW GENERAL 2V AP/LAT LEFT RADEX ELBOW 2 VIEWS Kaushik Corona MD [address] [place] [address] Xr Imaging Referral ID Status Reason Start Date Expiration Date Visits Requested Visits Authorized [id number] Pending Review Auto-Generat ed Referral 08/17/2022 09/16/2023 1 1 [facility])* Diagnostic Procedure Only (Routine) [...] MD [address] [place] [address] Xr Imaging Referral ID Status Reason Start Date Expiration Date Visits Requested Visits Authorized [id number] Pending Review Auto-Generat ed Referral 09/28/2022 10/28/2023 1 1 [facility] Advance Directives No Advanced Directives Records FoundLatest [...] or prosecute any alcohol or drug abuse patient.[facility] the event this information is protected by the Federal Confidentiality of Alcohol and Drug Abuse Patient Records regulations: The Federal rules restrict any use of the information to criminally investigate or prosecute any alcohol or drug abuse patient.[facility] the event this information is protected by the Federal Confidentiality of Alcohol and Drug Abuse Patient Records regulations: The Federal rules restrict any use of the information to criminally investigate or prosecute any alcohol or drug abuse patient.[facility] the event this information is protected by the Federal Confidentiality of Alcohol and Drug Abuse Patient Records regulations: The Federal rules restrict any use of the information to criminally investigate or prosecute any alcohol or drug abuse patient.[facility] Reason for Visit (unrecogniz ed section and content) Reason Comments Established Patient Pain radiating down to hand/fingers Pain Pain radiating down to hand/fingers Reason Comments Established Patient Reason Comments Appointment Care Teams (unrecognized sec tion and content) Cheerleading Coach Relationship Specialty Start Date End Date Jose Deutsch MD [address] [place] [phone] PCP - General Internal Medicine 06/20/22 Cheerleading Coach Relationship Specialty Start Date End Date Jose Deutsch MD [address] [facility] [address] [place] [address] PCP - General Internal Medicine 06/20/22 Cheerleading Coach Relationship Specialty Start Date End Date Jose Deutsch MD [address] [facility] [address] [place] [address] PCP - General Internal Medicine 06/20/22 INFORMATION SOURCE (unrecogn ized section and content) DATE CREATED AUTHOR AUTHOR'S MINERVA ATION 11/08/2022 [facility] FOR RECORDS PERTAINING TO PATIENTS WHO [...] BE BASED ON THE PRIMARY CLINICAL RECORDS. [facility] [employer] provides no warranty or guarantee of the accuracy or completeness of information in this document.
[2023-06-07 15:28] LABS: Absolute Lymphocyte Count 3.51 X10^3/uL (0.83-4.51); Absolute Neutrophil Count 5.5 X10^3/uL (2.0-7.7); Basophil# 0.06 X10^3/uL; Basophil% 0.6 % (0-1); Eosinophil# 0.66 X10^3/uL; Eosinophils% 6.3 % (0-5); Hematocrit 41.9 % (37-47); Hemoglobin 13.3 g/dL (12.0-15.0); Lymphocyte # 3.51 X10^3/ul (0.83-4.51); Lymphocyte % 33.6 % (19-41); Mean Corp Hgb Conc 31.7 g/dL (32-36); Mean Corpuscular Hgb 27.8 pg (27.0-32.0); Mean Corpuscular Volume 87.5 fL (81-99); Mean Platelet Vol. 10.7 fl (6.2-12.0); Monocyte# 0.68 X10^3/uL; Monocyte% 6.5 % (0-10); NRBC Flagged by Analyzer 0 % (0-5); Neutrophil # 5.51 X10^3/uL (2.7-7.7); Neutrophil % 52.6 % (47-70); Platelet Count 384 K/mm3 (150-450); RBC Distribution Width CV 15.6 % (11.6-14.6); RBC Distribution Width SD 49.8 fl (35.1-43.9); Red Blood Count 4.79 M/mm3 (4.2-5.4); White Blood Count 10.5 K/mm3 (4.4-11.0)
[2023-06-07 16:05] LABS: ALB/GLOB Ratio 0.7 RATIO (0.9-2.4); AST(SGOT) 30 U/L (15-37); Alanine Aminotransfer ALT/SGPT 27 U/L (13-56); Alkaline Phosphatase 76 U/L (45-117); Anion Gap 2 (5-15); BUN 22 mg/dL (7-18); BUN/Creat Ratio 20.6 RATIO (10-20); Calcium,Total 9.6 mg/dL (8.5-10.1); Chloride 111 mmol/L (98-107); Creatinine, Serum 1.07 mg/dL (0.55-1.02); EST Glomerular Filtration Rate 51 mL/min (>60); Est Glom Filt Rate - Afr Amer 62 mL/min (>60); Globulin 4.6 g/dL (2.2-4.2); Glucose 86 mg/dL (74-106); Potassium 4.6 mmol/L (3.5-5.1); Protein, Total 7.6 g/dL (6.4-8.2); Sodium Level 140 mmol/L (136-145)
[2023-06-07 16:08] LABS: Vitamin D,25 Hydroxy 67.3 ng/mL
== END | disposition home or self-care (01) ==
LOC: BIMLAB 11:58
PROVIDERS: PCP Internal Medicine; Visit Provider Internal Medicine
DX: I10 Essential (primary) hypertension (principal); M81.0 Age-related osteoporosis without current pathological fracture
CPT/HCPCS: 36415; 80053; 82306; 85025

== ENCOUNTER → 2023-12-20 | Outpatient (CLI) | payer MEDICARE, SELFPAY ==
[2023-12-20 12:45] LABS: Anion Gap 3 (5-15); BUN 23 mg/dL (7-18); Calcium,Total 10.2 mg/dL (8.5-10.1); Chloride 109 mmol/L (98-107); Creatinine, Serum 1.15 mg/dL (0.55-1.02); EST Glomerular Filtration Rate 47 mL/min (>60); Est Glom Filt Rate - Afr Amer 57 mL/min (>60); Glucose 97 mg/dL (74-106); Potassium 4.9 mmol/L (3.5-5.1); Sodium Level 140 mmol/L (136-145)
[2023-12-20 12:56] LABS: AST(SGOT) 36 U/L (15-37); Alanine Aminotransfer ALT/SGPT 18 U/L (13-56); Alkaline Phosphatase 69 U/L (45-117); Bilirubin, Direct 0.19 mg/dL (0.00-0.30); Cholesterol 133 mg/dL (200); Globulin 4.6 g/dL (2.2-4.2); High Density Lipoprotein 55 mg/dL; Protein, Total 7.6 g/dL (6.4-8.2); Triglycerides 104 mg/dL; Very Low Density Lipoprotein 21 mg/dL (5-40)
== END | disposition home or self-care (01) ==
LOC: BIMLAB 11:05
PROVIDERS: Nurse Practitioner Family; PCP Internal Medicine; Referring Provider Internal Medicine; Visit Provider Internal Medicine
DX: I10 Essential (primary) hypertension (principal); E78.00 Pure hypercholesterolemia, unspecified
CPT/HCPCS: 36415; 80048; 80061; 80076

== ENCOUNTER → 2024-06-06 | Outpatient (CLI) | payer MEDICARE, SELFPAY ==
--- NOTE | 2024-06-06 14:05 | ECHOCS_ITS ---
Reason For Study Reason For Study: CAD/ASHD Procedure This was a 2D Doppler, Color Flow transthoracic echocardiogram. The study was technically difficult. Limited views were obtained. Exam performed in department. Left Ventricle Normal size and thickness. Septal motion consistent with bundle branch block. The left ventricular ejection fraction is 50 %. Right Ventricle Normal right ventricle. Atria The left and right atria are normal. Mitral Valve Mild mitral annular calcification. Trivial mitral valve insufficiency. Tricuspid Valve Trivial tricuspid valve insufficiency. Normal pulmonary artery pressure. Aortic Valve Aortic sclerosis, no stenosis. Pulmonic Valve The pulmonic valve is not well visualized. Great Vessels Normal sized aortic root. Pericardium/Pleural No pericardial effusion. Medication 20 gauge I.V. with prn adaptor inserted into right arm. Diluted definity 3ml given slow IV push to enhance endocardial definition. MMode/2D Measurements & Calculations LVIDd: 3.5 cm IVSd: 0.89 cm LVOT diam: 2.0 cm LVIDs: 2.7 cm LVPWd: 0.92 cm FS: 24.1 % LVOT area: 3.2 cm2 Ao root diam: 2.9 cm LAV(MOD-sp4): 35.9 ml LVAd ap4: 25.2 cm2 LVLd ap4: 7.6 cm EDV(MOD-sp4): 68.5 ml EDV(sp4-el): 70.6 ml LVAs ap4: 16.2 cm2 LVLs ap4: 6.7 cm ESV(MOD-sp4): 32.5 ml ESV(sp4-el): 33.3 ml EF(MOD-sp4): 52.6 % EF(sp4-el): 52.8 % SV(MOD-sp4): 36.0 ml SV(sp4-el): 37.3 ml LA A4 area: 13.8 cm2 SI(MOD-sp4): 23.2 ml/m2 LA dimension(2D): 2.5 cm RA A4 area: 12.7 cm2 Doppler Measurements & Calculations Ao V2 max: 114.9 cm/sec LV V1 max: 103.5 cm/sec SV(LVOT): 63.0 ml Ao max P.4 mmHg LV V1 max P.3 mmHg Ao V2 mean: 84.9 cm/sec LV V1 mean P.1 mmHg Ao mean P.2 mmHg LV V1 mean: 67.9 cm/sec Ao V2 VTI: 23.9 cm LV V1 VTI: 19.5 cm AV (velocity ratio): 0.82 SILVER(I,D): 2.6 cm2 SILVER(V,D): 2.9 cm2 PA V2 max: 130.6 cm/sec TR max rafiq: 244.7 cm/sec PA V2 mean: 69.8 cm/sec TR max P.9 mmHg ECHO/Echo Complete W/ Contrast Interpretation Summary The left ventricular ejection fraction is 50 %. Mild mitral annular calcification. Aortic sclerosis, no stenosis. The study was technically difficult. Ordering Physician: Ely Holguin Referring Physician: Ely Holguin Performed By: Raeann Elkins RCS
== END | disposition home or self-care (01) ==
LOC: CVS 14:04
PROVIDERS: PCP Internal Medicine; Referring Provider Internal Medicine Cardiovascular Disease; Visit Provider Internal Medicine Cardiovascular Disease
DX: I25.10 Atherosclerotic heart disease of native coronary artery without angina pectoris (principal)
CPT/HCPCS: 93306; Q9957; A4216; C8929